=== PATIENT | female | born 1975 | race Caucasian/White ===

== ENCOUNTER 2019-02-05 21:48 | Emergency (ER) | payer SELFPAY ==
[2019-02-05] MEDS ORDERED: LORazepam 2 MG/ML VIAL ONE (23:14)
[2019-02-05] MEDS ORDERED: LABETALOL 20 MG/4ML SYRINGE IV ONE (23:15)
[2019-02-05] MEDS ORDERED: NA CHLORIDE 0.9% 1,000 ML ONE (23:15)
[2019-02-05 23:24] LABS: Absolute Lymphocytes (CBC) 2.1 K/uL (0.7-4.9); Basophils % 1.2 % (0-1.3); Eosinophils % 2.6 % (0-4.4); Hematocrit 32.5 % (36.0-45.0); Lymphocytes % 27.8 % (15.3-44.8); MPV 7.3 fL (7.6-11.3); Monocytes % 6.3 % (3.3-12.3); RBC Red Blood Cell Count 3.42 M/uL (3.86-4.86)
[2019-02-05 23:55] LABS: Potassium 2.9 mmol/L (3.5-5.1)
[2019-02-06] MEDS ORDERED: POTASSIUM 25 MEQ EFFERV TAB ONE (00:49)
--- NOTE | 2019-02-06 00:51 | ER ---
Nurse's Notes [facility] Name: Laura Hammond Age: 43 yrs Sex: Female : 1975 Arrival Date: 02/05/2019 Time: 21:49 Bed 7 Private MD: Diagnosis: Essential (primary) hypertension;Anxiety disorder, unspecified Presentation: 02/05 21:50 Presenting complaint: Patient states: Has been at [facility] for 7 days for alcohol tl2 withdrawal, states they have not been giving her xanax for her anxiety and her BP has been high. Woke up this morning with high BP and reports blurry vision. Transition of care: patient was received from another setting of care (rehabilitation facility). Onset of symptoms was February 05, 2019. Risk Assessment: Do you want to hurt yourself or someone else? Patient reports no desire to harm self or others. Initial Sepsis Screen: Does the patient meet any 2 criteria? No. Patient's initial sepsis screen is negative. Does the patient have a suspected source of infection? No. Patient's initial sepsis screen is negative. Care prior to arrival: Pt received 3 doses of hydroxyzine at [facility] today. 21:50 Method Of Arrival: EMS: [facility] tl2 21:50 Acuity: MARCELL 3 tl2 Triage Assessment: 21:53 General: Appears in no apparent distress. uncomfortable, Behavior is cooperative, tl2 appropriate for age, anxious. Pain: Denies pain. EENT: Reports blurred vision. Neuro: Level of Consciousness is awake, alert, obeys commands, Oriented to person, place, time, situation, Speech is normal, Facial symmetry appears normal, Reports blurred vision Denies dizziness, numbness. Cardiovascular: Denies chest pain. Respiratory: Reports shortness of breath Airway is patent Respiratory effort is even, unlabored, Respiratory pattern is regular, symmetrical. GI: Reports anorexia. Derm: Skin is pink, warm \T\ dry. 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 - Social history:: Smoking status: Patient uses tobacco products, smokes one-half pack cigarettes per day. - Ebola Screening: : No symptoms or risks identified at this time. Screenin:56 Abuse screen: Denies threats or abuse. Nutritional screening: No deficits noted. tl2 Tuberculosis screening: No symptoms or risk factors identified. Fall Risk None identified. Assessment: 21:59 General: see triage assessment. tl2 23:00 Reassessment: Patient appears in no apparent distress at this time. Patient and/or tl2 family updated on plan of care and expected duration. Pain level reassessed. Patient is alert, oriented x 3, equal unlabored respirations, skin warm/dry/pink. 02/06 00:40 Reassessment: Patient appears in no apparent distress at this time. Patient and/or tl2 family updated on plan of care and expected duration. Pain level reassessed. Patient is alert, oriented x 3, equal unlabored respirations, skin warm/dry/pink. Patient states feeling better. 01:12 Reassessment: Patient appears in no apparent distress at this time. Patient and/or tl2 family updated on plan of care and expected duration. Pain level reassessed. Patient is alert, oriented x 3, equal unlabored respirations, skin warm/dry/pink. pt verbalized understanding of discharge instructions, need for follow up and prescription usage. Called Client pick-up for [facility], they will call back for ETA on transport Patient states feeling better. Vital Signs: 02/05 21:53 BP 175 / 116; Pulse 82; Resp 20; Temp 99.2(O); Pulse Ox 98% on R/A; Weight 51.26 kg; tl2 Height 5 ft. 0 in. (152.40 cm); Pain 0/10; 22:50 BP 159 / 102; Pulse 80; Resp 18; Pulse Ox 97% on R/A; tl2 23:19 BP 148 / 88; Pulse 93; Resp 18; Pulse Ox 97% on R/A; tl2 23:55 BP 144 / 89; Pulse 87; Resp 18; Pulse Ox 97% on R/A; tl2 02/06 00:40 BP 145 / 88; Pulse 81; Resp 18; Pulse Ox 97% on R/A; tl2 02/05 21:53 Body Mass Index 22.07 (51.26 kg, 152.40 cm) tl2 ED Course: 02/05 21:49 Patient arrived in ED. tl2 21:52 Triage completed. tl2 21:53 Arm band placed on right wrist. tl2 21:56 Patient has correct armband on for positive identification. Placed in gown. Bed in low tl2 position. Call light in reach. Side rails up X2. 21:59 Brendan Wilder PA is PHCP. jr8 21:59 Sherif Box MD is Attending Physician. jr8 22:49 Alyson Bond RN is Primary Nurse. tl2 22:50 Inserted saline lock: 24 gauge in left hand, using aseptic technique. Blood collected. tl2 23:55 Notified Nurse Practitioner and/or Physician Automotive Electrician of a critical lab result(s), aa1 potassium - 2.9. 02/06 01:12 No provider procedures requiring assistance completed. IV discontinued, intact, tl2 bleeding controlled, No redness/swelling at site. Pressure dressing applied. Administered Medications: 02/05 23:08 Drug: NS 0.9% 1000 ml Route: IV; Rate: 1000 ml; Site: left hand; tl2 02/06 01:14 Follow up: IV Status: Completed infusion; IV Intake: 1000ml tl2 02/05 23:10 Drug: Ativan 1 mg Route: IVP; Site: left hand; tl2 23:57 Follow up: Response: No adverse reaction; Anxiety decreased tl2 23:10 Drug: Labetalol 10 mg Route: IVP; Site: left hand; tl2 23:56 Follow up: Response: No adverse reaction; Blood pressure is lowered tl2 02/06 00:39 CANCELLED (not available): Potassium Chloride 40 mEq PO once tl2 00:40 Drug: Potassium Effervescent Tablet 50 mEq Route: PO; tl2 01:14 Follow up: Response: No adverse reaction tl2 Intake: 01:14 IV: 1000ml; Total: 1000ml. tl2 Outcome: 00:49 Discharge ordered by . jr8 01:12 Discharged to Rehab Facility tl2 01:12 Condition: stable 01:12 Discharge instructions given to patient, Instructed on discharge instructions, follow up and referral plans. medication usage, Demonstrated understanding of instructions, follow-up care, medications, Prescriptions given X 1. 01:50 Patient left the ED. tl2 Signatures: Ebonie Suggs RN RN aa1 Brendan Wilder PA PA jr8 Alyson Bond RN RN tl2 Corrections: (The following items were deleted from the chart) 00:39 00:39 Potassium Chloride 40 mEq PO tl2 tl2
--- NOTE | 2019-02-06 00:51 | EDPHYS ---
Physician Documentation [facility] Name: Laura Hammond Age: 43 yrs Sex: Female : 1975 Arrival Date: 02/05/2019 Time: 21:49 Bed 7 Private MD: ED Physician Sherif Box HPI: 02/05 23:40 This 43 yrs old Female presents to ER via EMS with complaints of Blood jr8 Pressure Problem. 23:40 Patient stated that she has been a long standing alcoholic and was on Xanax 1 mg PO TID jr8 for over a month. Stated that she has been in rehab currently and just finished detoxifying off of alcohol. Stated that the placed stopped her Xanax when she first went in. Now having spikes in her BP and is very anxious and jittery . Severity of symptoms: At their worst the symptoms were moderate in the emergency department the symptoms are unchanged. The patient has not experienced similar symptoms in the past. The patient has not recently seen a physician. 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 - Social history:: Smoking status: Patient uses tobacco products, smokes one-half pack cigarettes per day. - Ebola Screening: : No symptoms or risks identified at this time. ROS: 23:40 Eyes: Negative for injury, pain, redness, and discharge, ENT: Negative for injury, jr8 pain, and discharge, Neck: Negative for injury, pain, and swelling, Cardiovascular: Negative for chest pain, palpitations, and edema, Respiratory: Negative for shortness of breath, cough, wheezing, and pleuritic chest pain, Abdomen/GI: Negative for abdominal pain, nausea, vomiting, diarrhea, and constipation, Back: Negative for injury and pain, MS/Extremity: Negative for injury and deformity, Skin: Negative for injury, rash, and discoloration. 23:40 Neuro: Positive for headache, Negative for altered mental status, dizziness, gait disturbance, hearing loss, loss of consciousness, numbness, seizure activity, speech changes, syncope, near syncope, tingling, tinnitus, tremor, visual changes, weakness. 23:40 Psych: Positive for anxiety. Exam: 23:40 Eyes: Pupils equal round and reactive to light, extra-ocular motions intact. Lids and jr8 lashes normal. Conjunctiva and sclera are non-icteric and not injected. Cornea within normal limits. Periorbital areas with no swelling, redness, or edema. ENT: Nares patent. No nasal discharge, no septal abnormalities noted. Tympanic membranes are normal and external auditory canals are clear. Oropharynx with no redness, swelling, or masses, exudates, or evidence of obstruction, uvula midline. Mucous membranes moist. Neck: Trachea midline, no thyromegaly or masses palpated, and no cervical lymphadenopathy. Supple, full range of motion without nuchal rigidity, or vertebral point tenderness. No Meningismus. Cardiovascular: Regular rate and rhythm with a normal S1 and S2. No gallops, murmurs, or rubs. Normal PMI, no JVD. No pulse deficits. Respiratory: Lungs have equal breath sounds bilaterally, clear to auscultation and percussion. No rales, rhonchi or wheezes noted. No increased work of breathing, no retractions or nasal flaring. Abdomen/GI: Soft, non-tender, with normal bowel sounds. No distension or tympany. No guarding or rebound. No evidence of tenderness throughout. Back: No spinal tenderness. No costovertebral tenderness. Full range of motion. Skin: Warm, dry with normal turgor. Normal color with no rashes, no lesions, and no evidence of cellulitis. MS/ Extremity: Pulses equal, no cyanosis. Neurovascular intact. Full, normal range of motion. Neuro: Awake and alert, GCS 15, oriented to person, place, time, and situation. Cranial nerves II-XII grossly intact. Motor strength 5/5 in all extremities. Sensory grossly intact. Cerebellar exam normal. Normal gait. 23:40 Constitutional: The patient appears alert, awake, anxious. Vital Signs: 21:53 BP 175 / 116; Pulse 82; Resp 20; Temp 99.2(O); Pulse Ox 98% on R/A; Weight 51.26 kg; tl2 Height 5 ft. 0 in. (152.40 cm); Pain 0/10; 22:50 BP 159 / 102; Pulse 80; Resp 18; Pulse Ox 97% on R/A; tl2 23:19 BP 148 / 88; Pulse 93; Resp 18; Pulse Ox 97% on R/A; tl2 23:55 BP 144 / 89; Pulse 87; Resp 18; Pulse Ox 97% on R/A; tl2 02/06 00:40 BP 145 / 88; Pulse 81; Resp 18; Pulse Ox 97% on R/A; 2 02/05 21:53 Body Mass Index 22.07 (51.26 kg, 152.40 cm) tl2 MDM: 02/05 21:59 Patient medically screened. jr8 02/06 00:48 Data reviewed: vital signs, nurses notes, lab test result(s), and as a result, I will jr8 discharge patient. Data interpreted: Pulse oximetry: on room air is 97 %. Interpretation: normal. Counseling: I had a detailed discussion with the patient and/or guardian regarding: the historical points, exam findings, and any diagnostic results supporting the discharge/admit diagnosis, lab results, the need for outpatient follow up, a family practitioner, to return to the emergency department if symptoms worsen or persist or if there are any questions or concerns that arise at home. Response to treatment: the patient's symptoms have markedly improved after treatment. 02/05 22:34 Order name: CBC with Diff; Complete Time: 23:39 8 02/05 22:34 Order name: Basic Metabolic Panel; Complete Time: 00:04 8 02/05 22:34 Order name: IV; Complete Time: 22:50 [facility] Administered Medications: 02/05 23:08 Drug: NS 0.9% 1000 ml Route: IV; Rate: 1000 ml; Site: left hand; tl2 02/06 01:14 Follow up: IV Status: Completed infusion; IV Intake: 1000ml 2 02/05 23:10 Drug: Ativan 1 mg Route: IVP; Site: left hand; tl2 23:57 Follow up: Response: No adverse reaction; Anxiety decreased tl2 23:10 Drug: Labetalol 10 mg Route: IVP; Site: left hand; tl2 23:56 Follow up: Response: No adverse reaction; Blood pressure is lowered 2 02/06 00:39 CANCELLED (not available): Potassium Chloride 40 mEq PO once tl2 00:40 Drug: Potassium Effervescent Tablet 50 mEq Route: PO; tl2 01:14 Follow up: Response: No adverse reaction tl2 Disposition: 01:44 Co-signature as Attending Physician, Sherif Box MD. Disposition: 02/06/19 00:49 Discharged to Home. Impression: Essential (primary) hypertension, Anxiety disorder, unspecified. - Condition is Stable. - Discharge Instructions: Panic Attacks, Hypertension, Generalized Anxiety Disorder. - Prescriptions for Lisinopril 10 mg Oral Tablet - take 1 tablet by ORAL route once daily; 20 tablet. - Medication Reconciliation Form, Thank You Letter, Antibiotic Education, Prescription Opioid Use form. - Follow up: Private Physician; When: 2 - 3 days; Reason: Recheck today's complaints, Continuance of care, Re-evaluation by your physician. - Problem is new. - Symptoms have improved. - Notes: Patient to increase Lisinopril to 10 mg once a day to help with stabilization of blood pressure Signatures: Dispatcher [employer] EDMS Brendan Wilder PA PA jr8 Alyson Bond RN RN 2 Sherif Box MD MD Corrections: (The following items were deleted from the chart) 00:39 02/05 23:55 Potassium Chloride Liquid 40 mEq PO once ordered. jr8 tl2 02/06 00:39 00:39 Potassium Chloride Liquid 40 mEq PO once given. tl2 tl2 00:39 00:39 Potassium Chloride Liquid 40 mEq PO once ordered. tl2 tl2 01:50 00:49 02/06/2019 00:49 Discharged to Home. Impression: Essential (primary) tl2 hypertension; Anxiety disorder, unspecified. Condition is Stable. Forms are Medication Reconciliation Form, Thank You Letter, Antibiotic Education, Prescription Opioid Use. Follow up: Private Physician; When: 2 - 3 days; Reason: Recheck today's complaints, Continuance of care, Re-evaluation by your physician. Problem is new. Symptoms have improved. jr8
== END 2019-02-06 01:50 | disposition home or self-care (01) ==
LOC: ER 21:48
DX: I10 Essential (primary) hypertension (principal); F41.9 Anxiety disorder, unspecified; F17.210 Nicotine dependence, cigarettes, uncomplicated
CPT/HCPCS: 36415; 80048; 85025; 96361; 96374; 96375; 99284; J7030

== ENCOUNTER 2019-02-18 22:10 | Emergency (ER) | payer SELFPAY ==
--- OUTSIDE RECORDS SUMMARY | 2019-02-18 22:26 | XMS REPORT | Continuity of Care Document ---
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 CDT, Stop date: 04/30/16 12:20:00 CDTNotes: (Same as: K-Dur 20) "Do Not Crush" With food and full glass of water potassium chloride 20 mEq, 1 No Longer tab, Route: Active 2015 [facility] PO, Drug form: ERTAB, ONCE, Dosing Weight 50, kg, Start date: 04/28/16 23:58:00 CDT, Stop date: 04/28/16 23:58:00 CDTNotes: (Same as: K-Dur 20) "Do Not Crush" With food and full glass of water potassium chloride 10 mEq, 100 Inactive mL, Route: 2015 [facility] IVPB, Drug form: INJ, Q1H, Dosing Weight 50, kg, Total Dose=60 meq, Start date: 04/28/16 6:00:00 CDT, Duration: 6 doses or times, Stop date: 04/28/16 11:00:00 CDT, Peripheral LineNotes: Infuse at a rate of 10 mEq/hr. (Same as: KCL) Calcium Gluconate 2,000 mg, 100 Inactive mL, Route: 2015 [facility] IVPB, Drug form: INJ, ONCE, Dosing Weight 50, kg, Priority: STAT, Start date: 04/28/16 5:47:00 CDT, Stop date: 04/28/16 5:47:00 CDTNotes: WASTE: F/P - Sink; E - [employer] Trash Bin potassium chloride 20 mEq, 1 No Longer tab, Route: Active 2015 [facility] PO, Drug form: ERTAB, PRN, Dosing Weight 50, kg, PRN Abnormal Lab Result, For NON-ICU Patients Only, Start date: 04/27/16 12:21:00 CDT, Duration: 30 day, Stop date: 05/27/16 12:20:00 CDTNotes: (Same as: K-Dur 20) "Do Not Crush" With food and full glass of water Magnesium Oxide 800 mg, 2 No Longer tab, Route: Active 2015 [facility] PO, Drug form: TAB, PRN, Dosing Weight 50, kg, PRN Abnormal Lab Result, For NON-ICU Patients Only., Start date: 04/27/16 12:21:00 CDT, Duration: 30 day, Stop date: 05/27/16 12:20:00 CDTNotes: (Same as: Mag-Ox 400) Magnesium oxide [id number] elemental magnesium [id number] magnesium oxide (484mg elemental magnesium) Magnesium Sulfate 2 gm, 50 mL, No Longer Route: IVPB, Active 2015 [facility] Drug form: INJ, PRN, Dosing Weight 50, kg, PRN Abnormal Lab Result, For NON-ICU Patients Only., Start date: 04/27/16 12:21:00 CDT, Duration: 30 day, Stop date: 05/27/16 12:20:00 CDTNotes: WASTE: F/P - Sink; E - [employer] Trash Bin sodium phosphate + 15 mmol, 5 No Longer sodium chloride mL, Route: Active 2015 [facility] 0.9% INJ 250 mL IVPB, PRN, Dosing Weight 50, kg, PRN Abnormal Lab Result, For NON-ICU Patients Only., Start date: 04/27/16 12:21:00 CDT, Duration: 30 day, Stop date: 05/27/16 12:20:00 CDT Calcium Gluconate 2 gm, 100 mL, No Longer Route: IVPB, Active 2015 [facility] Drug form: INJ, PRN, Dosing Weight 50, kg, PRN Abnormal Lab Result, For NON-ICU Patients Only., Start date: 04/27/16 12:21:00 CDT, Duration: 30 day, Stop date: 05/27/16 12:20:00 CDTNotes: WASTE: F/P - Sink; E - [employer] Trash Bin potassium 15 mmol, 5 No Longer phosphate + sodium mL, Route: Active 2015 [facility] chloride 0.9% INJ IVPB, PRN, 250 mL Dosing Weight 50, kg, PRN Abnormal Lab Result, For NON-ICU Patients Only., Start date: 04/27/16 12:21:00 CDT, Duration: 30 day, Stop date: 05/27/16 12:20:00 CDTNotes: (Same as: K Phosphate.) 1 mMol phoshate has 1.47 mEq potassium Infuse over 4 hours potassium 2 pkt, Route: No Longer phosphate-sodium PO, Drug Active 2015 [facility] phosphate 250 Form: mg-278 mg-164 mg PDR/REC, oral powder Dosing Weight 50, kg, PRN, PRN Abnormal Lab Result, For NON-ICU Patients Only, Start date: 04/27/16 12:21:00 CDT, Duration: 30 day, Stop date: 05/27/16 12:20:00 CDTNotes: (Same as: Neutra-Phos) Each 1.25 gm pkt has 250mg phosphorous. Mix w/2.5oz water and stir. potassium chloride 10 mEq, 100 Inactive mL, Route: 2015 [facility] IVPB, Drug form: INJ, Q1H, Dosing Weight 50, kg, Total Dose=40 meq, Start date: 04/27/16 7:00:00 CDT, Duration: 4 doses or times, Stop date: 04/27/16 10:00:00 CDT, Peripheral LineNotes: Infuse at a rate of 10 mEq/hr. (Same as: KCL) potassium 14 mmol, 4.67 Inactive phosphate + sodium mL, Route: 2015 [facility] chloride 0.9% INJ IVPB, ONCE, 250 mL Dosing Weight 50, kg, Start date: 04/27/16 6:33:00 CDT, Stop date: 04/27/16 6:33:00 CDTNotes: (Same as: K Phosphate.) 1 mMol phoshate has 1.47 mEq potassium Infuse over 4 hours Sertraline 50 mg, 1 tab, No Longer Route: PO, Active 2015 [facility] Drug form: TAB, Bedtime, kg, Start date: 04/26/16 21:00:00 CDT, Duration: 30 day, Stop date: 05/25/16 21:00:00 CDTNotes: (Same as: Zoloft) Ativan 0.5 mg, 1 Inactive tab, Route: 2015 [facility] PO, Drug form: TAB, ONCE, Dosing Weight 50, kg, PRN Anxiety, Start date: 04/26/16 20:24:00 CDTNotes: (Same as: Ativan) Nicotine 21 mg, 1 No Longer patch, Route: Active 2015 [facility], Drug form: ERFILM, Daily, Dosing Weight 50, kg, Start date: 04/26/16 15:00:00 CDT, Duration: 30 day, Stop date: 05/26/16 9:00:00 CDTNotes: (Same as: Habitrol) "Remove old patch before application of new patch" WASTE: F/P - P Waste Black; E - P Waste Black potassium chloride 10 mEq, 100 Inactive mL, Route: 2015 [facility] IVPB, Drug form: INJ, Q1H, Start date: 04/26/16 15:00:00 CDT, Duration: 2 doses or times, Stop date: 04/26/16 16:00:00 CDTNotes: Infuse at a rate of 10 mEq/hr. (Same as: KCL) magnesium sulfate 1 gm, 100 mL, Inactive Route: IVPB, 2015 [facility] Drug form: INJ, Q1H, Start date: 04/26/16 15:00:00 CDT, Duration: 3 doses or times, Stop date: 04/26/16 17:00:00 CDTNotes: WASTE: F/P - Sink; E - [employer] Trash Bin Magnesium Sulfate 3 gm, Route: Inactive IVPB, Drug 2015 [facility] form: INJ, ONCE, Dosing Weight 50, kg, Start date: 04/26/16 14:15:00 CDT, Stop date: 04/26/16 14:15:00 CDT potassium 30 mmol, 10 Inactive phosphate + sodium mL, Route: 2015 [facility] chloride 0.9% INJ IVPB, ONCE, 250 mL Dosing Weight 50, kg, Start date: 04/26/16 14:14:00 CDT, Stop date: 04/26/16 14:14:00 CDTNotes: (Same as: K Phosphate.) 1 mMol phoshate has 1.47 mEq potassium Infuse over 4 hours potassium chloride 20 mEq, Inactive Route: IVPB, 2015 [facility] ONCE, Dosing Weight 50, kg, Start date: 04/26/16 14:11:00 CDT, Stop date: 04/26/16 14:11:00 CDT Chlordiazepoxide 25 mg, 1 cap, No Longer Hydrochloride 25 Route: PO, Active 2015 [facility] Drug form: CAP, Q6H, kg, Alcohol Withdrawal, Start date: 04/26/16 12:00:00 CDT, Duration: 30 day, Stop date: 05/26/16 6:00:00 CDT potassium chloride 10 mEq, 100 Inactive mL, Route: 2015 [facility] IVPB, Drug form: INJ, Q1H, kg, Total Dose=20 meq, Start date: 04/26/16 11:00:00 CDT, Duration: 2 doses or times, Stop date: 04/26/16 12:00:00 CDT, Peripheral LineNotes: Infuse at a rate of 10 mEq/hr. (Same as: KCL) Amlodipine 10 mg, 2 tab, No Longer Route: PO, Active 2015 [facility] Drug form: TAB, Daily, kg, Start date: 04/26/16 10:30:00 CDT, Duration: 30 day, Stop date: 05/26/16 9:00:00 CDTNotes: (Same as: Norvasc) Buspirone 7.5 mg, 1.5 No Longer tab, Route: Active 2015 [facility] PO, Drug form: TAB, BID, kg, Start date: 04/26/16 10:30:00 CDT, Duration: 30 day, Stop date: 05/26/16 9:00:00 CDTNotes: (Same As: BuSpar) Zofran 4 mg, 2 mL, No Longer Route: IVP, Active 2015 [facility] Drug form: INJ, Q4H, kg, PRN Nausea, Start date: 04/26/16 10:15:00 CDT, Duration: 30 day, Stop date: 05/26/16 10:14:00 CDTNotes: (Same as: Zofran) MEDICATION WASTE Product Size: 4 mg Product Wasted: ___ mg Ativan 1 mg, 0.5 mL, Inactive Route: IVP, 2015 [facility] Drug form: INJ, ONCE, kg, PRN Anxiety, Start date: 04/26/16 10:14:00 CDTNotes: (Same as: Ativan) D5NS 1,000 mL + 1,000 mL, No Longer thiamine IV 100 mg Rate: 100 Active 2015 [facility] + folic acid IV 1 ml/hr, Infuse mg over: 10 hr, Route: IV, Total Volume: 1,001.2, Start date: 04/26/16 10:12:00 CDT, Duration: 30 day, Stop date: 05/26/16 10:11:00 CDT potassium chloride 10 mEq, PO, Active Daily, 0 2015 [facility] Refill(s) busPIRone 7.5 mg 7.5 mg=1 tab, Active oral tablet PO, BID, 0 2015 [facility] Refill(s) Amlodipine 10 mg, PO, Active Daily, 0 2015 [facility] Refill(s) ondansetron 8 mg 8 mg=1 tab, Active oral tablet PO, BID, 0 2015 [facility] Refill(s) sertraline 50 mg 50 mg=1 tab, Active oral tablet PO, Bedtime, 2015 0 Refill(s) Allergies, Adverse Reactions, Alerts Substance Category Reaction Severity Reaction Status Date Comments Source type Reported Demerol HCl Assertion Moderate Drug Active allergy [facility] Immunizations No Data Provided for This Section Results Order Name Results Value Reference Date Interpretation Comments Source Range TOXICOLOGY Etoh (%) 0.079 12/15 [facility] TOXICOLOGY Ethanol Lvl 79 12/15 [facility] CARDIAC Total CK 140 12 - 191 12/15 ENZYMES [facility] CARDIAC Troponin-I <0.02 0.00 - 12/15 [facility] 0.40 [facility] CHEM PANEL Lipase Lvl 115 73 - 393 12/15 [facility] CHEM PANEL eGFR 59 12/15 Result Comment: The [facility] eGFR is calculated using the CKD-EPI formula. In most young, healthy individuals the eGFR will be >90 mL/min/1.73m2 . The eGFR declines with age. An eGFR of 60-89 may be normal in some populations, particularly the elderly, for whom the CKD-EPI formula has not been extensively validated. Use of the eGFR is not recommended in the following populations:< br/>
Sarah viduals with unstable creatinine concentration s, including patients and those with serious co-morbid conditions.<b r/>
Patie nts with extremes in muscle mass or diet.

The data above are obtained from the National Kidney Disease Education Program (NKDEP) which additionally recommends that when the eGFR is used in patients with extremes of body mass index for purposes of drug dosing, the eGFR should be multiplied by the estimated BMI. CHEM PANEL Alk Phos 68 39 - 136 12/15 [facility] CHEM PANEL AST 30 0 - 37 12/15 [facility] CHEM PANEL ALT 31 0 - 65 12/15 [facility] CHEM PANEL Albumin Lvl 3.6 3.5 - 5.0 12/15 [facility] CHEM PANEL Bili Total 0.5 0.2 - 1.3 12/15 [facility] CHEM PANEL CO2 26 24 - 32 12/15 [facility] CHEM PANEL Calcium Lvl 7.9 8.5 - 10.5 12/15 [facility] CHEM PANEL Total 7.1 6.4 - 8.4 12/15 Protein [facility] CHEM PANEL Potassium 3.7 3.5 - 5.1 12/15 Lvl /2018 [facility] CHEM PANEL Sodium Lvl 139 135 - 145 12/15 [facility] CHEM PANEL Creatinine 1.12 0.50 - 12/15 Lvl 1.40 [facility] CHEM PANEL Chloride Lvl 106 95 - 109 12/15 [facility] CHEM PANEL BUN 14 7 - 22 12/15 [facility] CHEM PANEL Glucose Lvl 115 70 - 99 12/15 [facility] CHEM PANEL A/G Ratio 1.0 0.7 - 1.6 12/15 [facility] CHEM PANEL Globulin 3.5 2.7 - 4.2 12/15 [facility] CHEM PANEL B/C Ratio 12 6 - 25 12/15 [facility] CHEM PANEL AGAP 10.7 10.0 - 12/15 20.0 [facility] ENDOCRINOL S Preg Negative Negative 12/15 OGY *NA* /2018 [facility] (12/15/18 3:03 PM) HEMATOLOGY Platelet 306 133 - 450 12/15 [facility] HEMATOLOGY MPV 8.1 7.4 - 10.4 12/15 [facility] HEMATOLOGY RDW 17.5 11.5 - 12/15 MH 14.5 /2018 [facility] HEMATOLOGY WBC 10.8 3.7 - 10.4 12/15 /2018 [facility] HEMATOLOGY RBC 4.74 4.20 - 12/15 MH 5.40 /2018 [facility] HEMATOLOGY MCV 93.6 80.0 - 12/15 MH 98.0 /2018 [facility] HEMATOLOGY MCH 31.1 27.0 - 12/15 MH 31.0 /2018 [facility] HEMATOLOGY Hgb 14.8 12.0 - 12/15 MH 16.0 [facility] HEMATOLOGY Hct 44.4 36.0 - 12/15 MH 48.0 /2018 [facility] HEMATOLOGY MCHC 33.3 32.0 - 12/15 MH 36.0 /2018 [facility] HEMATOLOGY Monocytes 6.3 2.0 - 12.0 12/15 [facility] HEMATOLOGY Eosinophils 0.8 0.0 - 4.0 12/15 [facility] HEMATOLOGY Lymphocytes 36.7 20.0 - 12/15 MH 40.0 [facility] HEMATOLOGY Segs 54.9 45.0 - 12/15 MH 75.0 [facility] HEMATOLOGY Basophils # 0.1 0.0 - 0.2 12/15 [facility] HEMATOLOGY Eosinophils 0.1 0.0 - 0.5 12/15 # /2018 [facility] HEMATOLOGY Monocytes # 0.7 0.0 - 0.8 12/15 [facility] HEMATOLOGY Lymphocytes 4.0 1.0 - 5.5 12/15 [facility] HEMATOLOGY Basophils 1.3 0.0 - 1.0 12/15 [facility] HEMATOLOGY Neutrophils 5.9 1.5 - 8.1 12/15 # /2018 [facility] URINE AND UA Mucus Few /LPF None Seen 11/18 STOOL /LPF /2018 [facility] URINE AND UA Bacteria Occasional None Seen 11/18 STOOL /HPF /HPF /2018 [facility] URINE AND UA RBC 1 0 - 2 11/18 STOOL /2018 [facility] URINE AND UA Protein Negative Negative 11/18 [facility] (11/18/18 7:08 AM) [facility] URINE AND UA Glucose Negative Negative 11/18 STOOL *NA* [facility] (11/18/18 7:08 AM) URINE AND UA Ketones Negative Negative 11/18 STOOL *NA* [facility] (11/18/18 7:08 AM) URINE AND UA Color Yellow Yellow 11/18 STOOL *NA* [facility] (11/18/18 7:08 AM) URINE AND UA Bili Negative Negative 11/18 STOOL *NA* /2018 [facility] (11/18/18 7:08 AM) URINE AND UA Blood Small Negative 11/18 STOOL *ABN* [facility] (11/18/18 7:08 AM) URINE AND UA <=1.0 0.1 - 1.0 11/18 STOOL Urobilinogen mg/dL [facility] URINE AND UA Turbidity Slight Clear 11/18 STOOL *ABN* [facility] (11/18/18 7:08 AM) URINE AND UA pH 7.0 5.0 - 8.0 11/18 [facility] URINE AND UA Nitrite Negative Negative 11/18 [facility] (11/18/18 7:08 AM) [facility] URINE AND UA Leuk Est Negative Negative 11/18 [facility] (11/18/18 7:08 AM) [facility] URINE AND UA Sq Epi Many /LPF Few /LPF 11/18 [facility] URINE AND UA Spec Grav 1.015 <=1.030 11/18 STOOL [facility] URINE AND UA WBC 2 0 - 5 11/18 [facility] CHEM PANEL Lipase Lvl 107 73 - 393 11/18 [facility] CHEM PANEL Globulin 3.2 2.7 - 4.2 11/18 [facility] CHEM PANEL A/G Ratio 1.2 0.7 - 1.6 11/18 [facility] CHEM PANEL AGAP 12.8 10.0 - 11/18 MH 20.0 [facility] CHEM PANEL B/C Ratio 10 6 - 25 11/18 [facility] CHEM PANEL eGFR 67 11/[address] [facility] Comment: The [facility] eGFR is calculated using the CKD-EPI formula. In most young, healthy individuals the eGFR will be >90 mL/min/1.73m2 . The eGFR declines with age. An eGFR of 60-89 may be normal in some populations, particularly the elderly, for whom the CKD-EPI formula has not been extensively validated. Use of the eGFR is not recommended in the following populations:< br/>
Sarah viduals with unstable creatinine concentration s, including patients and those with serious co-morbid conditions.<b r/>
Patie nts with extremes in muscle mass or diet.

The data above are obtained from the National Kidney Disease Education Program (NKDEP) which additionally recommends that when the eGFR is used in patients with extremes of body mass index for purposes of drug dosing, the eGFR should be multiplied by the estimated BMI. CHEM PANEL Glucose Lvl 99 70 - 99 11/18 [facility] CHEM PANEL BUN 10 7 - 22 11/18 [facility] CHEM PANEL Bili Total 0.4 0.2 - 1.3 11/18 [facility] CHEM PANEL AST 60 0 - 37 11/18 [facility] CHEM PANEL Alk Phos 64 39 - 136 11/18 [facility] CHEM PANEL ALT 44 0 - 65 11/18 [facility] CHEM PANEL Sodium Lvl 138 135 - 145 11/18 [facility] CHEM PANEL Albumin Lvl 3.9 3.5 - 5.0 11/18 [facility] CHEM PANEL Creatinine 1.01 0.50 - 11/18 MH Lvl 1.40 [facility] CHEM PANEL Calcium Lvl 7.9 8.5 - 10.5 11/18 [facility] CHEM PANEL Total 7.1 6.4 - 8.4 11/18 [facility] CHEM PANEL Potassium 3.8 3.5 - 5.1 11/18 MH Lvl /2018 [facility] CHEM PANEL Chloride Lvl 101 95 - 109 11/18 [facility] CHEM PANEL CO2 28 24 - 32 11/18 [facility] ENDOCRINOL S Preg Negative Negative 11/18 OGY *NA* /2018 [facility] (11/18/18 4:31 AM) HEMATOLOGY RDW 15.9 11.5 - 11/18 MH 14. [facility] HEMATOLOGY Platelet 340 133 - 450 11/18 [facility] HEMATOLOGY MCHC 34.2 32.0 - 11/18 MH 36.0 [facility] HEMATOLOGY MCH 31.6 27.0 - 11/18 MH 31.0 [facility] HEMATOLOGY Hgb 13.7 12.0 - 11/18 MH 16.0 [facility] HEMATOLOGY Hct 40.1 36.0 - 11/18 MH 48.0 [facility] HEMATOLOGY MCV 92.5 80.0 - 11/18 MH 98.0 [facility] HEMATOLOGY MPV 7.0 7.4 - 10.4 11/18 [facility] HEMATOLOGY RBC 4.34 4.20 - 11/18 MH 5.40 [facility] HEMATOLOGY WBC 10.0 3.7 - 10.4 11/18 [facility] HEMATOLOGY Monocytes # 0.3 0.0 - 0.8 11/18 [facility] HEMATOLOGY Monocytes 3.2 2.0 - 12.0 11/18 [facility] HEMATOLOGY Basophils 0.4 0.0 - 1.0 11/18 [facility] HEMATOLOGY Eosinophils 2.1 0.0 - 4.0 11/18 [facility] HEMATOLOGY Lymphocytes 1.9 1.0 - 5.5 11/18 MH [facility] HEMATOLOGY Neutrophils 7.6 1.5 - 8.1 11/18 MH [facility] HEMATOLOGY Segs 75.6 45.0 - 11/18 MH 75.0 [facility] HEMATOLOGY Lymphocytes 18.7 20.0 - 11/18 MH 40.0 [facility] HEMATOLOGY Eosinophils 0.2 0.0 - 0.5 11/18 MH [facility] CHEM PANEL Glucose Lvl 84 70 - 99 09/25 [facility] CHEM PANEL BUN 19 7 - 22 09/25 [facility] CHEM PANEL Sodium Lvl 140 135 - 145 09/25 [facility] CHEM PANEL Potassium 2.6 3.5 - 5.1 09/25 Result Lv Comment: [facility] Critical Result(s) called to Andra Mascorro RN at 09/25/2018 06:32 by Maddy. Read back OK. CHEM PANEL Creatinine 1.26 0.50 - 02 Lvl 1.40 /2018 [facility] CHEM PANEL Chloride Lvl 103 95 - 109 09/25 [facility] CHEM PANEL CO2 27 24 - 32 09/25 [facility] CHEM PANEL eGFR 52 02 Result Comment: The [facility] eGFR is calculated using the CKD-EPI formula. In most young, healthy individuals the eGFR will be >90 mL/min/1.73m2 . The eGFR declines with age. An eGFR of 60-89 may be normal in some populations, particularly the elderly, for whom the CKD-EPI formula has not been extensively validated. Use of the eGFR is not recommended in the following populations:< br/>
Sarah viduals with unstable creatinine concentration s, including patients and those with serious co-morbid conditions.<b r/>
Patie nts with extremes in muscle mass or diet.

The data above are obtained from the National Kidney Disease Education Program (NKDEP) which additionally recommends that when the eGFR is used in patients with extremes of body mass index for purposes of drug dosing, the eGFR should be multiplied by the estimated BMI. CHEM PANEL AGAP 12.6 10.0 - 02/ MH 20.0 /2018 [facility] CHEM PANEL Calcium Lvl 8.6 8.5 - 10.5 02/ /2018 [facility] CHEM PANEL Magnesium 1.9 1.8 - 2.4 02/04 MH Lvl /2018 [facility] ENDOCRINOL S Preg Negative Negative 09/25 OGY *NA* /2018 [facility] (09/25/18 5:31 AM) HEMATOLOGY Hgb 12.5 12.0 - 02/ MH 16.0 /2018 [facility] HEMATOLOGY RBC 3.93 4.20 - 02/ MH 5.40 /2018 [facility] HEMATOLOGY WBC 11.1 3.7 - 10.4 09/25 /2018 [facility] HEMATOLOGY MCHC 33.9 32.0 - 02/ 36.0 /2018 [facility] HEMATOLOGY MCH 31.7 27.0 - 02/ 31.0 /2018 [facility] HEMATOLOGY MCV 93.7 80.0 - 02/ 98.0 /2018 [facility] HEMATOLOGY Hct 36.8 36.0 - 02/ MH 48.0 /2018 [facility] HEMATOLOGY RDW 15.3 11.5 - 02/ 14.5 /2018 [facility] HEMATOLOGY Platelet 295 133 - 450 02/ /2018 [facility] HEMATOLOGY MPV 7.9 7.4 - 10.4 02/ /2018 [facility] HEMATOLOGY Neutrophils 8.1 1.5 - 8.1 02/ MH # /2019 [facility] HEMATOLOGY Lymphocytes 2.2 1.0 - 5.5 02/ MH # /2019 [facility] HEMATOLOGY Basophils # 0.1 0.0 - 0.2 02/ MH /2018 [facility] HEMATOLOGY Eosinophils 0.4 0.0 - 0.5 02/04 MH # /2019 [facility] HEMATOLOGY Monocytes # 0.3 0.0 - 0.8 02/ /2018 [facility] HEMATOLOGY Lymphocytes 19.6 20.0 - 02/ MH 40.0 /2018 [facility] HEMATOLOGY Segs 73.1 45.0 - 02/04 MH 75.0 /2019 [facility] HEMATOLOGY Monocytes 3.0 2.0 - 12.0 02/04 /2018 [facility] HEMATOLOGY Basophils 0.9 0.0 - 1.0 02/04 /2019 [facility] HEMATOLOGY Eosinophils 3.4 0.0 - 4.0 09/25 [facility] TOXICOLOGY Ethanol Lvl <3 05/03 [facility] TOXICOLOGY Etoh (%) <0.003 05/03 [facility] CARDIAC BNP 54 <=100 05/03 ENZYMES pg/mL [facility] CHEM PANEL Ammonia 18.0 <=45.0 05/03 uMol/L [facility] CHEM PANEL Lipase Lvl 121 73 - 393 05/03 [facility] CHEM PANEL Lactic Acid 1.2 0.5 - 2.2 05/03 Lvl [facility] CHEM PANEL eGFR 88 05/03 Comment: The [facility] eGFR is calculated using the CKD-EPI formula. In most young, healthy individuals the eGFR will be >90 mL/min/1.73m2 . The eGFR declines with age. An eGFR of 60-89 may be normal in some populations, particularly the elderly, for whom the CKD-EPI formula has not been extensively validated. Use of the eGFR is not recommended in the following populations:< br/>
Sarah viduals with unstable creatinine concentration s, including patients and those with serious co-morbid conditions.<b r/>
Patie nts with extremes in muscle mass or diet.

The data above are obtained from the National Kidney Disease Education Program (NKDEP) which additionally recommends that when the eGFR is used in patients with extremes of body mass index for purposes of drug dosing, the eGFR should be multiplied by the estimated BMI. CHEM PANEL ALT 19 0 - 65 05/03 [facility] CHEM PANEL Albumin Lvl 3.5 3.5 - 5.0 05/03 [facility] CHEM PANEL Calcium Lvl 9.3 8.5 - 10.5 05/03 [facility] CHEM PANEL Chloride Lvl 107 95 - 109 05/03 [facility] CHEM PANEL CO2 27 24 - 32 05/03 [facility] CHEM PANEL Total 7.0 6.4 - 8.4 05/03 [facility] CHEM PANEL Bili Total 0.3 0.2 - 1.3 05/03 [facility] CHEM PANEL AST 27 0 - 37 05/03 [facility] CHEM PANEL Alk Phos 70 39 - 136 05/03 [facility] CHEM PANEL Creatinine 0.82 0.50 - 05/03 MH Lvl 1.40 /2016 [facility] CHEM PANEL Sodium Lvl 142 135 - 145 05/03 [facility] CHEM PANEL Potassium 3.6 3.5 - 5.1 05/03 MH Lvl /2016 [facility] CHEM PANEL BUN 10 7 - 22 05/03 [facility] CHEM PANEL Glucose Lvl 89 70 - 99 05/03 [facility] CHEM PANEL Globulin 3.5 2.7 - 4.2 05/03 [facility] CHEM PANEL AGAP 11.6 10.0 - 09 MH 20.0 /2016 [facility] CHEM PANEL B/C Ratio 12 6 - 25 05/03 [facility] CHEM PANEL A/G Ratio 1.0 0.7 - 1.6 05/03 [facility] DRUG UDS Note See Note 05/03 MH SCREEN (05/03/17 12:34 PM) /2016 [facility] DRUG U Annel Scr Negative Negative 05/03 SCREEN *NA* [facility] (05/03/17 12:34 PM) DRUG U Benzodia Positive Negative 05/03 SCREEN Scr *ABN* /2016 [facility] (05/03/17 12:34 PM) DRUG U Phencyc Negative Negative 05/03 SCREEN Scr *NA* /2016 [facility] (05/03/17 12:34 PM) DRUG U Opiate Scr Negative Negative 05/03 SCREEN *NA* [facility] (05/03/17 12:34 PM) DRUG U Cannab Scr Negative Negative 05/03 SCREEN *NA* /2016 [facility] (05/03/17 12:34 PM) DRUG U Cocaine Negative Negative 05/03 SCREEN Scr *NA* /2016 [facility] (05/03/17 12:34 PM) DRUG U Amph Scr Negative Negative 05/03 SCREEN *NA* /2016 [facility] (05/03/17 12:34 PM) HEMATOLOGY Monocytes # 0.6 0.0 - 0.8 05/03 [facility] HEMATOLOGY Macrocyte 1+ None Seen 05/03 MH *ABN* /2016 [facility] (05/03/17 12:34 PM) HEMATOLOGY Eosinophils 0.7 0.0 - 0.5 05/03 MH # /2016 [facility] HEMATOLOGY Basophils # 0.1 0.0 - 0.2 05/03 /2016 [facility] HEMATOLOGY Lymphocytes 1.9 1.0 - 5.5 09/12 MH # /2017 [facility] HEMATOLOGY Eosinophils 8.6 0.0 - 4.0 05/03 /2016 [facility] HEMATOLOGY Segs 60.5 45.0 - 05/03 MH 75.0 /2016 [facility] HEMATOLOGY Basophils 1.0 0.0 - 1.0 05/03 /2016 [facility] HEMATOLOGY Segs-Bands # 5.0 1.5 - 8.1 05/03 /2016 [facility] HEMATOLOGY Monocytes 7.1 2.0 - 12.0 05/03 /2016 [facility] HEMATOLOGY Lymphocytes 22.8 20.0 - 05/03 MH 40.0 /2016 [facility] HEMATOLOGY PTT 30.8 22.9 - 05/03 MH 35.8 /2016 [facility] HEMATOLOGY INR 0.94 0.85 - 05/03 MH 1.17 /2016 [facility] HEMATOLOGY PT 12.8 12.0 - 05/03 MH 14.7 /2016 [facility] HEMATOLOGY MPV 8.6 7.4 - 10.4 05/03 /2016 [facility] HEMATOLOGY RDW 17.1 11.5 - 05/03 MH 14.5 /2016 [facility] HEMATOLOGY Platelet 197 133 - 450 05/03 /2016 [facility] HEMATOLOGY Hct 42.3 36.0 - 05/03 MH 48.0 /2016 [facility] HEMATOLOGY Hgb 14.4 12.0 - 05/03 MH 16.0 /2016 [facility] HEMATOLOGY WBC 8.3 3.7 - 10.4 05/03 /2016 [facility] HEMATOLOGY MCH 34.4 27.0 - 05/03 MH 31.0 /2016 [facility] HEMATOLOGY MCHC 34.1 32.0 - 05/03 MH 36.0 /2016 [facility] HEMATOLOGY MCV 100.8 80.0 - 05/03 98.0 /2016 [facility] HEMATOLOGY RBC 4.20 4.20 - 05/03 5.40 /2016 [facility] URINE AND UA <=1.0 0.1 - 1.0 05/03 STOOL Urobilinogen mg/dL /2016 [facility] URINE AND UA Amorph Occasional None Seen 05/03 STOOL [place] /HPF /HPF /2016 [facility] URINE AND UA Color Yellow Yellow 05/03 STOOL *NA* /2016 [facility] (05/03/17 12:34 PM) URINE AND UA Turbidity Slight Clear 05/03 STOOL *ABN* /2016 [facility] (05/03/17 12:34 PM) URINE AND UA Ketones Negative Negative 05/03 STOOL mg/dL mg/dL /2016 [facility] URINE AND UA Bili Negative Negative 05/03 STOOL *NA* /2016 [facility] (05/03/17 12:34 PM) URINE AND UA Sq Epi Many /LPF Few /LPF 05/03 STOOL /2016 [facility] URINE AND UA Leuk Est Small Negative 05/03 STOOL *ABN* /2016 [facility] (05/03/17 12:34 PM) URINE AND UA Glucose Negative Negative 05/03 STOOL mg/dL mg/dL [facility] URINE AND UA Protein Negative Negative 05/03 STOOL mg/dL mg/dL [facility] URINE AND UA Spec Grav 1.015 <=1.030 05/03 STOOL [facility] URINE AND UA pH 6.0 5.0 - 8.0 05/03 STOOL [facility] URINE AND UA Mucus Few /LPF None Seen 05/03 STOOL /LPF /2016 [facility] URINE AND UA Bacteria Moderate None Seen 05/03 STOOL /HPF /HPF /2016 [facility] URINE AND UA Nitrite Negative Negative 05/03 STOOL (05/03/17 12:34 PM) /2016 [facility] URINE AND UA Blood Large Negative 05/03 STOOL *ABN* /2016 [facility] (05/03/17 12:34 PM) URINE AND UA RBC 4 0 - 2 05/03 STOOL /2016 [facility] URINE AND UA WBC 10 0 - 5 05/03 STOOL /2016 [facility] BLOOD BANK ABO/Rh O POS 02/15 RESULTS /2016 [facility] BLOOD BANK Antibody Negative 02/15 RESULTS Scrn (02/15/17 12:32 PM) [facility] BLOOD BANK RBC product Product available 1 02/15 Result RESULTS (02/15/17 11:10 AM) Comment: [facility] 02/15/2017 13:38 [id number]
Called result to KEITH at 02/15/2017 13:38 by MML. Read Back Ok. CHEM PANEL Magnesium 1.5 1.8 - 2.4 02/15 Lvl /2016 [facility] CHEM PANEL eGFR 115 02/15 Result Comment: The [facility] eGFR is calculated using the CKD-EPI formula. In most young, healthy individuals the eGFR will be >90 mL/min/1.73m2 . The eGFR declines with age. An eGFR of 60-89 may be normal in some populations, particularly the elderly, for whom the CKD-EPI formula has not been extensively validated. Use of the eGFR is not recommended in the following populations:< br/>
Sarah viduals with unstable creatinine concentration s, including patients and those with serious co-morbid conditions.<b r/>
Patie nts with extremes in muscle mass or diet.

The data above are obtained from the National Kidney Disease Education Program (NKDEP) which additionally recommends that when the eGFR is used in patients with extremes of body mass index for purposes of drug dosing, the eGFR should be multiplied by the estimated BMI. CHEM PANEL Bili Total 13.4 0.2 - 1.3 02/15 [facility] CHEM PANEL Alk Phos 301 39 - 136 02/15 [facility] CHEM PANEL Calcium Lvl 7.8 8.5 - 10.5 02/15 [facility] CHEM PANEL Total 4.8 6.4 - 8.4 02/15 Protein [facility] CHEM PANEL AGAP 12.9 10.0 - 02/15 MH 20.0 [facility] CHEM PANEL CO2 24 24 - 32 02/15 [facility] CHEM PANEL B/C Ratio 5 6 - 25 02/15 [facility] CHEM PANEL Albumin Lvl 1.9 3.5 - 5.0 02/15 [facility] CHEM PANEL ALT 90 0 - 65 02/15 [facility] CHEM PANEL A/G Ratio 0.7 0.7 - 1.6 02/15 [facility] CHEM PANEL Globulin 2.9 2.7 - 4.2 02/15 [facility] CHEM PANEL AST 163 0 - 37 02/15 [facility] CHEM PANEL Potassium 2.9 3.5 - 5.1 02/15 Result Lvl /2016 Comment: [facility] Critical Result(s) called to Janett Valverde RN at 02/15/2017 05:51 by RA. Read back OK. CHEM PANEL Chloride Lvl 108 95 - 109 02/15 [facility] CHEM PANEL Glucose Lvl 96 70 - 99 02/15 [facility] CHEM PANEL Sodium Lvl 142 135 - 145 02/15 [facility] CHEM PANEL Creatinine 0.55 0.50 - 02/15 Lvl 1.40 /2016 [facility] CHEM PANEL BUN 3 7 - 22 02/15 [facility] HEMATOLOGY Macrocyte 2+ None Seen 02/15 MH *ABN* /2016 [facility] (02/15/17 4:19 AM) HEMATOLOGY Hypochrom 1+ None Seen 02/15 (02/15/17 4:19 AM) [facility] HEMATOLOGY Polychrom Moderate None Seen 02/15 *ABN* [facility] (02/15/17 4:19 AM) HEMATOLOGY Microcyte 1+ None Seen 02/15 MH *ABN* [facility] (02/15/17 4:19 AM) HEMATOLOGY Baso Moderate None Seen 02/15 [place] *ABN* [facility] (02/15/17 4:19 AM) HEMATOLOGY Segs-Bands # 5.8 1.5 - 8.1 02/15 [facility] HEMATOLOGY Metamyelocyt 2.0 0.0 - 1.0 02/15 es [facility] HEMATOLOGY Monocytes 3.0 2.0 - 12.0 02/15 [facility]EM[facility] Monocytes # 0.3 0.0 - 0.8 02/15 [facility]EM[facility] Bands 5.0 0.0 - 11.0 02/15 [facility] HEMATOLOGY Lymphocytes 26.0 20.0 - 02/15 40.0 [facility]EM[facility] Segs 63.0 45.0 - 02/15 75.0 [facility]EM[facility] Lymphocytes 2.2 1.0 - 5.5 02/15 MH # /2016 [facility] HEMATOLOGY Atypical 0.0 <=0.0 % 02/15 Lymph [facility] HEMATOLOGY Anisocyte 1+ None Seen 02/15 *ABN* [facility] (02/15/17 4:19 AM) HEMATOLOGY NRBC 7 02/15 [facility] HEMATOLOGY Myelocytes 1.0 <=0.0 % 02/15 [facility] HEMATOLOGY Plt Morph Normal 02/15 (02/15/17 4:19 AM) [facility] HEMATOLOGY PT 13.1 12.0 - 02/15 14.7 [facility] HEMATOLOGY INR 0.97 0.85 - 02/15 MH 1. [facility] HEMAT[facility] WBC 8.6 3.7 - 10.4 02/15 [facility] HEMATOLOGY MPV 8.9 7.4 - 10.4 02/15 [facility] HEMATOLOGY Platelet 135 133 - 450 02/15 [facility] HEMATOLOGY RDW 27.4 11.5 - 02/15 14. [facility] HEMAT[facility] Hct 20.4 36.0 - 02/15 MH 48.0 /2017 [facility] HEMATOLOGY MCH 38.8 27.0 - 02/15 MH 31.0 /2016 [facility] HEMATOLOGY Hgb 6.9 12.0 - 02/15 Result 16.0 Comment: [facility] Critical Result(s) called to JANETT CHRISTIE at 02/15/2017 05:31 by CA. Read back OK. HEMATOLOGY RBC 1.77 4.20 - 02/15 MH 5.40 /2016 [facility] HEMATOLOGY MCV 115.2 80.0 - 02/15 MH 98.0 /2016 [facility] HEMATOLOGY MCHC 33.6 32.0 - 02/15 MH 36.0 /2016 [facility] MOLECULAR C difficile Negative Negative 02/14 DIAGNOSTIC DNA (02/14/17 2:22 PM) /2016 [facility] CHEM PANEL Lipase Lvl 404 73 - 393 02/14 [facility] CHEM PANEL B/C Ratio 5 6 - 02/14 [facility] CHEM PANEL A/G Ratio 0.7 0.7 - 1.6 02/14 [facility] CHEM PANEL Globulin 2.9 2.7 - 4.2 02/14 [facility] CHEM PANEL AGAP 13.2 10.0 - 02/14 20.0 [facility] CHEM PANEL eGFR 112 02/14 Result Comment: The [facility] eGFR is calculated using the CKD-EPI formula. In most young, healthy individuals the eGFR will be >90 mL/min/1.73m2 . The eGFR declines with age. An eGFR of 60-89 may be normal in some populations, particularly the elderly, for whom the CKD-EPI formula has not been extensively validated. Use of the eGFR is not recommended in the following populations:< br/>
Sarah viduals with unstable creatinine concentration s, including patients and those with serious co-morbid conditions.<b r/>
Patie nts with extremes in muscle mass or diet.

The data above are obtained from the National Kidney Disease Education Program (NKDEP) which additionally recommends that when the eGFR is used in patients with extremes of body mass index for purposes of drug dosing, the eGFR should be multiplied by the estimated BMI. CHEM PANEL Bili Total 14.0 0.2 - 1.3 02/14 [facility] CHEM PANEL Calcium Lvl 7.9 8.5 - 10.5 02/14 [facility] CHEM PANEL CO2 23 24 - 32 02/14 /2016 [facility] CHEM PANEL Chloride Lvl 108 95 - 109 02/14 [facility] CHEM PANEL Potassium 3.2 3.5 - 5.1 02/14 MH Lvl /2016 [facility] CHEM PANEL AST 249 0 - 37 02/14 [facility] CHEM PANEL ALT 113 0 - 65 02/14 [facility] CHEM PANEL Alk Phos 354 39 - 136 02/14 [facility] CHEM PANEL Albumin Lvl 2.0 3.5 - 5.0 02/14 [facility] CHEM PANEL Total 4.9 6.4 - 8.4 02/14 Protein /2016 [facility] CHEM PANEL BUN 3 7 - 22 02/14 [facility] CHEM PANEL Creatinine 0.60 0.50 - 02/14 MH Lvl 1.40 /2016 [facility] CHEM PANEL Sodium Lvl 141 135 - 145 02/14 [facility] CHEM PANEL Glucose Lvl 115 70 - 99 02/14 [facility] HEMATOLOGY Segs 55.2 45.0 - 02/14 75.0 [facility] HEMATOLOGY Monocytes # 0.8 0.0 - 0.8 02/14 [facility] HEMAT[facility] Eosinophils 0.1 0.0 - 0.5 02/14 MH # /2016 [facility] HEMATOLOGY Segs-Bands # 4.3 1.5 - 8.1 02/14 [facility] HEMATOLOGY Lymphocytes 2.5 1.0 - 5.5 02/14 MH # /2016 [facility] HEMATOLOGY Eosinophils 1.6 0.0 - 4.0 02/14 [facility] HEMATOLOGY Basophils 1.5 0.0 - 1.0 02/14 [facility] HEMATOLOGY Plt Morph Normal 02/14 (02/14/17 6:00 AM) /2016 [facility] HEMATOLOGY Lymphocytes 31.7 20.0 - 02/14 MH 40.0 [facility] HEMATOLOGY Monocytes 10.0 2.0 - 12.0 02/14 [facility] HEMATOLOGY Macrocyte 3+ None Seen 02/14 *NA* /2016 [facility] (02/14/17 6:00 AM) HEMATOLOGY Anisocyte 1+ None Seen 02/14 *ABN* /2016 [facility] (02/14/17 6:00 AM) HEMATOLOGY Basophils # 0.1 0.0 - 0.2 02/14 [facility] HEMATOLOGY WBC 7.8 3.7 - 10.4 02/14 [facility] HEMATOLOGY Hgb 7.1 12.0 - 02/14 MH 16.0 /2016 [facility] HEMATOLOGY RBC 1.83 4.20 - 02/14 MH 5.40 /2016 [facility] HEMATOLOGY Hct 20.6 36.0 - 02/14 MH 48.0 /2016 [facility] HEMATOLOGY MPV 8.5 7.4 - 10.4 02/14 /2016 [facility] HEMATOLOGY MCH 38.9 27.0 - 02/14 MH 31.0 /2016 [facility] HEMATOLOGY MCV 113.0 80.0 - 02/14 MH 98.0 /2016 [facility] HEMATOLOGY RDW 25.4 11.5 - 02/14 MH 14.5 /2016 [facility] HEMATOLOGY MCHC 34.4 32.0 - 02/14 MH 36.0 /2016 [facility] HEMATOLOGY Platelet 138 133 - 450 02/14 [facility] CARDIAC BNP 87 <=100 02/12 ENZYMES pg/mL [facility] CHEM PANEL Globulin 3.0 2.7 - 4.2 02/12 [facility] CHEM PANEL Albumin Lvl 1.9 3.5 - 5.0 02/12 [facility] CHEM PANEL ALT 177 0 - 65 02/12 [facility] CHEM PANEL Bili Direct 6.6 0.0 - 0.3 02/12 [facility] CHEM PANEL AST 532 0 - 37 02/12 [facility] CHEM PANEL Bili Total 8.9 0.2 - 1.3 02/12 [facility] CHEM PANEL Alk Phos 349 39 - 136 02/12 [facility] CHEM PANEL A/G Ratio 0.6 0.7 - 1.6 02/12 [facility] CHEM PANEL Total 4.9 6.4 - 8.4 02/12 MH [facility] CHEM PANEL Bili 2.3 0.0 - 1.0 02/12 [facility] CHEM PANEL Lactic Acid 1.9 0.5 - 2.2 02/12 MH Lvl /2016 [facility] CHEM PANEL Lipase Lvl 116 73 - 393 02/12 [facility] ELECTROLYT Sodium Lvl 137 135 - 145 02/12 MH ES [facility] ELECTROLYT Chloride Lvl 102 95 - 109 02/12 MH ES [facility] ELECTROLYT Potassium 3.8 3.5 - 5.1 02/12 MH ES Lvl [facility] ELECT[facility]OL[facility] Glucose Lvl 87 70 - 99 02/12 MH ES /2017 [facility] ELECTROLYT BUN 3 7 - 22 02/12 MH ES /2016 [facility] ELECTROLYT CO2 21 24 - 32 02/12 ES /2016 [facility] ELECTROLYT AGAP 17.8 10.0 - 02/12 MH ES 20.0 /2016 [facility] ELECTROLYT Calcium Lvl 8.0 8.5 - 10.5 02/12 ES /2016 [facility] ELECTROLYT Creatinine 0.51 0.50 - 02/12 MH ES Lvl 1.40 /2016 [facility] ELECTROLYT eGFR 118 02/12 Result Comment: The [facility] eGFR is calculated using the CKD-EPI formula. In most young, healthy individuals the eGFR will be >90 mL/min/1.73m2 . The eGFR declines with age. An eGFR of 60-89 may be normal in some populations, particularly the elderly, for whom the CKD-EPI formula has not been extensively validated. Use of the eGFR is not recommended in the following populations:< br/>
Sarah viduals with unstable creatinine concentration s, including patients and those with serious co-morbid conditions.<b r/>
Patie nts with extremes in muscle mass or diet.

The data above are obtained from the National Kidney Disease Education Program (NKDEP) which additionally recommends that when the eGFR is used in patients with extremes of body mass index for purposes of drug dosing, the eGFR should be multiplied by the estimated BMI. HEMATOLOGY Lymphocytes 52.4 20.0 - 02/12 MH 40.0 2017 [facility] HEMATOLOGY Segs 40.2 45.0 - 02/12 MH 75.0 /2017 [facility] HEMATOLOGY Macrocyte 3+ None Seen 02/12 MH *NA* /2016 [facility] (02/12/17 4:19 AM) HEMATOLOGY Eosinophils 1.1 0.0 - 4.0 02/12 /2016 [facility] HEMATOLOGY Monocytes # 0.4 0.0 - 0.8 02/12 /2016 [facility] HEMATOLOGY Lymphocytes 3.7 1.0 - 5.5 02/12 MH # /2017 [facility] HEMATOLOGY Eosinophils 0.1 0.0 - 0.5 02/12 MH # /2017 [facility] HEMATOLOGY Segs-Bands # 2.9 1.5 - 8.1 02/12 /2016 [facility] HEMATOLOGY Monocytes 5.2 2.0 - 12.0 02/12 /2016 [facility] HEMATOLOGY MCH 38.1 27.0 - 02/12 MH 31.0 /2016 [facility] HEMATOLOGY MCV 110.2 80.0 - 02/12 MH 98.0 /2016 [facility] HEMATOLOGY Hct 22.0 36.0 - 02/12 MH 48.0 /2016 [facility] HEMATOLOGY MPV 9.2 7.4 - 10.4 02/12 MH /2016 [facility] HEMATOLOGY Platelet 135 133 - 450 02/12 /2016 [facility] HEMATOLOGY MCHC 34.5 32.0 - 02/12 MH 36.0 /2016 [facility] HEMATOLOGY RDW 23.8 11.5 - 02/12 MH 14.5 /2016 [facility] HEMATOLOGY Hgb 7.6 12.0 - 02/12 MH 16.0 /2016 [facility] HEMATOLOGY RBC 2.00 4.20 - 02/12 MH 5.40 /2016 [facility] HEMATOLOGY WBC 7.1 3.7 - 10.4 02/12 MH /2016 [facility] DRUG U Phencyc Negative Negative 02/12 SCREEN Scr *NA* /2016 [facility] (02/12/17 12:26 AM) DRUG U Benzodia Positive Negative 02/12 SCREEN Scr *ABN* /2016 [facility] (02/12/17 12:26 AM) DRUG U Opiate Scr Positive Negative 02/12 MH SCREEN *ABN* /2016 [facility] (02/12/17 12:26 AM) DRUG U Cannab Scr Negative Negative 02/12 SCREEN *NA* /2016 [facility] (02/12/17 12:26 AM) DRUG U Cocaine Negative Negative 02/12 SCREEN Scr *NA* /2016 [facility] (02/12/17 12:26 AM) DRUG U Amph Scr Negative Negative 02/12 SCREEN *NA* /2016 [facility] (02/12/17 12:26 AM) DRUG U Annel Scr Negative Negative 02/12 SCREEN *NA* /2016 [facility] (02/12/17 12:26 AM) DRUG UDS Note See Note 02/12 MH SCREEN (02/12/17 12:26 AM) /2016 [facility] AMINO ACID MMA Qnt 108 0 - 378 02/12 Result Comment: [facility] Performed At: [facility]
[address] [place], [place] [id number]<br/ >Trev Castañeda MD Ph:[phone] ANEMIA Folate Lvl 5.1 >=3.0 02/12 STUDY ng/mL /2016 [facility] ANEMIA Vitamin B12 1988 254 - 1320 02/12 STUDY Lvl /2016 [facility] ANEMIA RBC Folate 1209 280 - 791 02/12 STUDY /2016 [facility] ANEMIA Ferritin Lvl 1673 5 - 204 02/12 STUDY /2016 [facility] ANEMIA Iron 138 30 - 160 02/12 STUDY /2016 [facility] ANEMIA % Satur Fe 109 12 - 57 02/12 STUDY /2016 [facility] ANEMIA TIBC 127 228 - 428 02/12 STUDY /2016 [facility] ANEMIA UIBC -11 110 - 370 02/12 STUDY /2016 [facility] BLOOD BANK ABO/Rh O POS 02/12 RESULTS /2016 [facility] BLOOD BANK Antibody Negative 02/12 RESULTS Scrn (02/11/17 7:03 PM) [facility] CHEM PANEL Bili Direct 6.8 0.0 - 0.3 02/12 [facility] CHEM PANEL Bili 2.0 0.0 - 1.0 02/12 Indirect /2016 [facility] CHEM PANEL LDH 455 98 - 192 02/12 [facility] HEMATOLOGY Retic Auto 4.2 0.5 - 1.5 02/12 [facility] IMMUNOLOGY Homocyst Tot 19.6 3.7 - 13.9 02/12 [facility] IMMUNOLOGY Hep B Core Negative Negative 02/12 IgM *NA* /2016 [facility] (02/11/17 7:03 PM) IMMUNOLOGY Hep Bs Ag Negative Negative 02/12 *NA* /2016 [facility] (02/11/17 7:03 PM) IMMUNOLOGY Hep C Ab Positive 02/12 *ABN* /2016 [facility] (02/11/17 7:03 PM) IMMUNOLOGY Hep A IgM Negative Negative 02/12 *NA* /2016 [facility] (02/11/17 7:03 PM) IMMUNOLOGY Haptoglobin 80 16 - 200 02/12 [facility] HEMATOLOGY INR 1.02 0.85 - 02/11 1. [facility] HEMATOLOGY PT 13.6 12.0 - 02/11 14.7 [facility] HEMATOLOGY PTT 29.2 22.9 - 02/11 35.8 /2016 [facility] TOXICOLOGY Ethanol Lvl 188 02/11 [facility] TOXICOLOGY Etoh (%) 0.188 02/11 [facility] URINE AND Occult Bld Negative Negative 02/11 STOOL Stl (02/11/17 3:27 PM) [facility] CHEM PANEL Phosphorus 1.5 2.5 - 4.5 02/11 Result Comment: [facility] Critical Result(s) called to Duane Trinidad at 02/11/2017 18:56 by BW. Read back OK. CHEM PANEL Magnesium 1.1 1.8 - 2.4 02/11 Lvl /2016 [facility] ENDOCRINOL S Preg Negative Negative 02/11 OGY *NA* [facility] (02/11/17 2:20 PM) LIPIDS VLDL See Note 2 02/11 Result MH *NA* Comment: VLDL [facility] (02/11/17 2:20 PM) - Cholesterol level cannot be accurately calculated due to very high triglycerides (>400 mg/dL). LIPIDS CHD Risk 28.23 3.90 - 02/11 5.80 /2016 [facility] LIPIDS HDL 13 >=61 mg/dL 02/11 [facility] LIPIDS Chol 367 <=199 02/11 mg/dL [facility] LIPIDS LDL See Note <=99 mg/dL 02/11 Result (Calculated) mg/dL Comment: LDL [facility] cholesterol cannot be calculated due to very high triglycerides (>400 mg/dL). Recommend Direct LDL if clinically indicated. LIPIDS Trig 1067 <=149 02/11 mg/dL /2016 [facility] URINE AND UA <=1.0 0.1 - 1.0 02/11 STOOL Urobilinogen mg/dL /2016 [facility] URINE AND UA Blood Small Negative 02/11 STOOL *ABN* [facility] (02/11/17 2:20 PM) URINE AND UA Bili Negative Negative 02/11 STOOL *NA* [facility] (02/11/17 2:20 PM) URINE AND UA Color Marjan Yellow 02/11 STOOL *ABN* [facility] (02/11/17 2:20 PM) URINE AND UA Bacteria Occasional None Seen 02/11 STOOL /HPF /HPF /2016 [facility] URINE AND UA Amorph Occasional None Seen 02/11 STOOL Clover /HPF /HPF /2016 [facility] URINE AND UA RBC 2 0 - 2 02/11 STOOL /2016 [facility] URINE AND UA WBC 6 0 - 5 02/11 STOOL /2016 [facility] URINE AND UA Leuk Est Moderate Negative 02/11 STOOL *ABN* [facility] (02/11/17 2:20 PM) URINE AND UA Sq Epi Few /LPF Few /LPF 02/11 STOOL /2016 [facility] URINE AND UA Nitrite Negative Negative 02/11 STOOL (02/11/17 2:20 PM) [facility] URINE AND UA Glucose Negative Negative 02/11 STOOL mg/dL mg/dL [facility] URINE AND UA Ketones Negative Negative 02/11 STOOL mg/dL mg/dL [facility] URINE AND UA Protein Negative Negative 02/11 STOOL mg/dL mg/dL [facility] URINE AND UA Spec Grav 1.002 <=1.030 02/11 STOOL [facility] URINE AND UA pH 7.0 5.0 - 8.0 02/11 STOOL /2016 [facility] URINE AND UA Turbidity Slight Clear 02/11 STOOL *ABN* /2016 [facility] (02/11/17 2:20 PM) CARDIAC CK MB Index <4.0 0.0 - 2.5 02/11 ENZYMES [facility] CARDIAC Troponin-I <0.02 0.00 - 02/11 ENZYMES 0.40 [facility] CARDIAC CK MB <1.0 0.5 - 3.6 02/11 ENZYMES [facility] CARDIAC Total CK 25 12 - 191 02/11 ENZYMES /2016 [facility] CHEM PANEL Lipase Lvl 144 73 - 393 02/11 [facility] CHEM PANEL B/C Ratio 15 - 25 02/11 [facility] HEMATOLOGY Anisocyte 1+ None Seen 02/11 *ABN* /2016 [facility] (02/11/17 1:45 PM) HEMATOLOGY Basophils # 0.1 0.0 - 0.2 02/11 [facility] HEMATOLOGY Eosinophils 0.8 0.0 - 4.0 02/11 [facility] HEMATOLOGY Basophils 0.8 0.0 - 1.0 02/11 [facility] HEMATOLOGY Plt Morph Normal 02/11 (02/11/17 1:45 PM) /2016 [facility] HEMATOLOGY Eosinophils 0.1 0.0 - 0.5 02/11 # /2016 [facility] HEMATOLOGY PB Smear Macrocytic 02/11 Path Anemia. /2016 [facility] No Schistocyt es or Spherocyte s seen. No Blasts seen. Ted Mcdonald M.D. TOXICOLOGY Ethanol Lvl 231 07/16 [facility] TOXICOLOGY Etoh (%) 0.231 07/16 [facility] CHEM PANEL Glucose Lvl 90 70 - 99 07/16 [facility] CHEM PANEL eGFR 78 07/16 Result Comment: The [facility] eGFR is calculated using the CKD-EPI formula. In most young, healthy individuals the eGFR will be >90 mL/min/1.73m2 . The eGFR declines with age. An eGFR of 60-89 may be normal in some populations, particularly the elderly, for whom the CKD-EPI formula has not been extensively validated. Use of the eGFR is not recommended in the following populations:< br/>
Sarah viduals with unstable creatinine concentration s, including patients and those with serious co-morbid conditions.<b r/>
Patie nts with extremes in muscle mass or diet.

The data above are obtained from the National Kidney Disease Education Program (NKDEP) which additionally recommends that when the eGFR is used in patients with extremes of body mass index for purposes of drug dosing, the eGFR should be multiplied by the estimated BMI. CHEM PANEL Sodium Lvl 141 135 - 145 07/16 [facility] CHEM PANEL Potassium 4.0 3.5 - 5.1 07/16 Lvl [facility] CHEM PANEL Creatinine 0.91 0.50 - 07/16 Lvl 1.40 [facility] CHEM PANEL Chloride Lvl 108 95 - 109 07/16 [facility] CHEM PANEL BUN 19 7 - 22 07/16 [facility] CHEM PANEL Total 7.4 6.4 - 8.4 07/16 [facility] CHEM PANEL Albumin Lvl 3.7 3.5 - 5.0 07/16 [facility] CHEM PANEL Calcium Lvl 7.9 8.5 - 10.5 07/16 [facility] CHEM PANEL ALT 59 0 - 65 07/16 [facility] CHEM PANEL CO2 25 24 - 32 07/16 [facility] CHEM PANEL Bili Total 0.4 0.2 - 1.3 07/16 [facility] CHEM PANEL Alk Phos 78 39 - 136 07/16 [facility] CHEM PANEL AST 93 0 - 37 07/16 [facility] CHEM PANEL AGAP 12.0 10.0 - 07/16 MH 20.0 [facility] CHEM PANEL B/C Ratio 21 6 - 25 07/16 [facility] CHEM PANEL A/G Ratio 1.0 0.7 - 1.6 07/16 [facility] CHEM PANEL Globulin 3.7 2.7 - 4.2 07/16 [facility] DRUG UDS Note See Note 07/16 SCREEN *NA* /2016 [facility] (07/16/16 1:22 PM) DRUG U Phencyc Negative Negative 07/16 SCREEN Scr [facility] (07/16/16 1:22 PM) DRUG U Opiate Scr Negative Negative 07/16 MH SCREEN * [facility] (07/16/16 1:22 PM) DRUG U Cocaine Negative Negative 07/16 MH SCREEN Scr * [facility] (07/16/16 1:22 PM) DRUG U Cannab Scr Negative Negative 07/16 MH SCREEN * [facility] (07/16/16 1:22 PM) DRUG U Amph Scr Negative Negative 07/16 MH SCREEN * [facility] (07/16/16 1:22 PM) DRUG U Annel Scr Negative Negative 07/16 SCREEN * [facility] (07/16/16 1:22 PM) DRUG U Benzodia Negative Negative 07/16 SCREEN Scr * [facility] (07/16/16 1:22 PM) HEMATOLOGY Lymphocytes 4.0 1.0 - 5.5 07/16 MH # /2015 [facility] HEMATOLOGY Eosinophils 3.3 0.0 - 4.0 07/16 /2015 [facility] HEMATOLOGY Segs-Bands # 6.4 1.5 - 8.1 07/16 [facility] HEMAT[facility]Y Basophils 1.1 0.0 - 1.0 07/16 /2015 [facility] HEMATOLOGY Monocytes # 0.6 0.0 - 0.8 07/16 [facility] HEMATOLOG[facility] Segs 55.3 45.0 - 07/16 MH 75.0 /2015 [facility] HEMATOLOGY Monocytes 5.2 2.0 - 12.0 07/16 /2015 [facility] HEMATOLOGY Lymphocytes 35.1 20.0 - 07/16 MH 40.0 /2016 [facility] HEMATOLOGY Basophils # 0.1 0.0 - 0.2 07/16 [facility] HEMATOLOGY Eosinophils 0.4 0.0 - 0.5 07/16 MH # /2015 [facility] HEMATOLOGY PT 13.4 12.0 - 07/16 MH 14.7 /2015 [facility] HEMATOLOGY INR 1.00 0.85 - 07/16 MH 1.17 /2015 [facility] HEMATOLOGY PTT 27.4 22.9 - 07/16 MH 35.8 /2015 [facility] HEMATOLOGY WBC 11.5 3.7 - 10.4 07/16 /2015 [facility] HEMATOLOGY RDW 15.3 11.5 - 07/16 MH 14.5 /2015 [facility] HEMATOLOGY MCHC 34.0 32.0 - 07/16 MH 36.0 /2015 [facility] HEMATOLOGY MPV 7.1 7.4 - 10.4 07/16 [facility] HEMATOLOGY Platelet 297 133 - 450 07/16 /2015 [facility] HEMATOLOGY Hgb 15.5 12.0 - 07/16 MH 16.0 /2015 [facility] HEMATOLOGY RBC 4.61 4.20 - 07/16 MH 5.40 /2015 [facility] HEMATOLOGY MCV 98.7 80.0 - 07/16 98.0 /2015 [facility] HEMATOLOGY Hct 45.5 36.0 - 07/16 MH 48.0 /2015 [facility] HEMATOLOGY MCH 33.6 27.0 - 07/16 MH 31.0 /2015 [facility] TOXICOLOGY Salicylate 1.8 0.0 - 30.0 07/16 Lvl /2015 [facility] TOXICOLOGY Acetaminoph <2 10 - 07/16 Lvl (07/16/16 1:22 PM) /2015 [facility] TOXICOLOGY Ethanol Lvl 303 07/16 Result Comment: [facility] Critical Result(s) called to Samy Romero at 07/16/2016 13:52 by RUBÉN. Read back OK. TOXICOLOGY Etoh (%) 0.303 07/16 [facility] URINE AND UA Sq Epi Occasional Few /LPF 07/02 STOOL /LPF /2015 [facility] URINE AND UA RBC None Seen 0 - 2 07/02 STOOL (07/02/16 11:01 AM) [facility] URINE AND UA Bacteria Occasional None Seen 07/02 STOOL /HPF /HPF /2015 [facility] URINE AND UA WBC 0-2 /HPF None Seen 07/02 STOOL /HPF /2015 [facility] URINE AND UA Spec Grav <=1.005 <=1.030 07/02 STOOL *NA* /2015 [facility] (07/02/16 11:01 AM) URINE AND UA pH 7.0 5.0 - 8.0 07/02 STOOL /2015 [facility] URINE AND UA Color STRAW 07/02 STOOL /2015 [facility] URINE AND UA Turbidity Clear Clear 07/02 STOOL (07/02/16 11:01 AM) /2015 [facility] URINE AND UA Ketones Negative Negative 07/02 STOOL *NA* /2015 [facility] (07/02/16 11:01 AM) URINE AND UA Bili Negative Negative 07/02 STOOL *NA* /2015 [facility] (07/02/16 11:01 AM) URINE AND UA Blood Negative Negative 07/02 STOOL (07/02/16 11:01 AM) [facility] URINE AND UA Protein Negative Negative 07/02 STOOL (07/02/16 11:01 AM) [facility] URINE AND UA Glucose Negative Negative 07/02 STOOL (07/02/16 11:01 AM) [facility] URINE AND UA Nitrite Negative Negative 07/02 STOOL (07/02/16 11:01 AM) [facility] URINE AND UA Leuk Est Negative Negative 07/02 STOOL (07/02/16 11:01 AM) [facility] URINE AND UA 0.2 0.1 - 1.0 07/02 STOOL Urobilinogen [facility] URINE CHEM U Preg Negative Negative 07/02 (07/02/16 11:01 AM) [facility] CHEM PANEL Phosphorus 2.7 2.5 - 4.5 07/02 [facility] CHEM PANEL Lipase Lvl 168 73 - 393 07/02 [facility] CHEM PANEL Magnesium 2.0 1.8 - 2.4 07/[address] [facility] CHEM PANEL eGFR 72 07/02 Result Comment: The [facility] eGFR is calculated using the CKD-EPI formula. In most young, healthy individuals the eGFR will be >90 mL/min/1.73m2 . The eGFR declines with age. An eGFR of 60-89 may be normal in some populations, particularly the elderly, for whom the CKD-EPI formula has not been extensively validated. Use of the eGFR is not recommended in the following populations:< br/>
Sarah viduals with unstable creatinine concentration s, including patients and those with serious co-morbid conditions.<b r/>
Patie nts with extremes in muscle mass or diet.

The data above are obtained from the National Kidney Disease Education Program (NKDEP) which additionally recommends that when the eGFR is used in patients with extremes of body mass index for purposes of drug dosing, the eGFR should be multiplied by the estimated BMI. CHEM PANEL Glucose Lvl 89 70 - 99 07/02 [facility] CHEM PANEL BUN 12 7 - 22 07/02 [facility] CHEM PANEL Potassium 2.6 3.5 - 5.1 07/02 Result Lv Comment: [facility] Critical Result(s) called to Bailey Wilks RN at 07/02/2016 11:07 by Maddy. Read back OK. CHEM PANEL Sodium Lvl 139 135 - 145 07/02 /2015 [facility] CHEM PANEL Creatinine 0.96 0.50 - 11 MH Lvl 1.40 /2015 [facility] CHEM PANEL Albumin Lvl 3.7 3.5 - 5.0 07/02 /2015 [facility] CHEM PANEL Total 7.1 6.4 - 8.4 07/02 MH Protein /2015 [facility] CHEM PANEL ALT 41 0 - 65 07/02 /2015 [facility] CHEM PANEL A/G Ratio 1.1 0.7 - 1.6 07/02 /2015 [facility] CHEM PANEL Globulin 3.4 2.7 - 4.2 07/02 /2015 [facility] CHEM PANEL CO2 28 24 - 32 07/02 /2015 [facility] CHEM PANEL Chloride Lvl 102 95 - 109 07/02 /2015 [facility] CHEM PANEL B/C Ratio 12 6 - 25 07/02 /2015 [facility] CHEM PANEL Calcium Lvl 8.3 8.5 - 10.5 07/02 /2015 [facility] CHEM PANEL AGAP 11.6 10.0 - 11 20.0 /2015 [facility] CHEM PANEL AST 41 0 - 37 07/02 /2015 [facility] CHEM PANEL Bili Total 0.3 0.2 - 1.3 07/02 /2015 [facility] CHEM PANEL Alk Phos 72 39 - 136 07/02 MH /2015 [facility] HEMATOLOGY Eosinophils 0.3 0.0 - 0.5 07/02 MH # /2016 [facility] HEMATOLOGY Segs 71.9 45.0 - 07/02 MH 75.0 /2015 [facility] HEMATOLOGY Lymphocytes 21.4 20.0 - 07/02 MH 40.0 /2016 [facility] HEMATOLOGY Monocytes 3.3 2.0 - 12.0 07/02 /2015 [facility] HEMATOLOGY Basophils 1.1 0.0 - 1.0 07/02 MH /2015 [facility] HEMATOLOGY Lymphocytes 2.5 1.0 - 5.5 07/02 MH # /2016 [facility] HEMATOLOGY Eosinophils 2.3 0.0 - 4.0 07/02 /2015 [facility] HEMATOLOGY Basophils # 0.1 0.0 - 0.2 07/02 /2015 [facility] HEMATOLOGY Monocytes # 0.4 0.0 - 0.8 07/02 /2015 [facility] HEMATOLOGY Segs-Bands # 8.4 1.5 - 8.1 07/02 /2015 [facility] HEMATOLOGY PTT 18.7 22.9 - 07/02 MH 35.8 /2015 [facility] HEMATOLOGY INR 0.91 0.85 - 07/02 MH 1.17 /2015 [facility] HEMATOLOGY PT 12.4 12.0 - 07/02 MH 14.7 /2015 [facility] HEMATOLOGY RDW 14.5 11.5 - 07/02 MH 14.5 /2015 [facility] HEMATOLOGY MPV 6.9 7.4 - 10.4 07/02 [facility] HEMATOLOGY Platelet 290 133 - 450 07/02 /2015 [facility] HEMATOLOGY WBC 11.7 3.7 - 10.4 11 /2015 [facility] HEMATOLOGY Hgb 13.8 12.0 - 07/02 MH 16.0 /2015 [facility] HEMATOLOGY RBC 4.18 4.20 - 07/02 MH 5.40 /2015 [facility] HEMATOLOGY MCHC 34.0 32.0 - 07/02 MH 36.0 /2015 [facility] HEMATOLOGY Hct 40.6 36.0 - 07/02 MH 48.0 /2015 [facility] HEMATOLOGY MCV 97.2 80.0 - 07/02 98.0 /2015 [facility] HEMATOLOGY MCH 33.1 27.0 - 07/02 MH 31.0 /2015 [facility] TOXICOLOGY Etoh (%) 0.332 07/02 [facility] TOXICOLOGY Ethanol Lvl 332 07/02 Result Comment: [facility] Critical Result(s) called to Yvette Guthrie RN at 07/02/2016 11:09 by [facility]. Read back OK. CHEM PANEL Phosphorus 4.2 2.5 - 4.5 04/30 [facility] CHEM PANEL Magnesium 2.0 1.8 - 2.4 04/30 Lvl /2015 [facility] CHEM PANEL Glucose Lvl 95 70 - 99 04/30 [facility] CHEM PANEL BUN 8 7 - 22 04/30 [facility] CHEM PANEL Sodium Lvl 141 135 - 145 04/30 [facility] CHEM PANEL CO2 30 24 - 32 04/30 [facility] CHEM PANEL Chloride Lvl 104 95 - 109 04/30 [facility] CHEM PANEL eGFR 101 04/30 Result Comment: The [facility] eGFR is calculated using the CKD-EPI formula. In most young, healthy individuals the eGFR will be >90 mL/min/1.73m2 . The eGFR declines with age. An eGFR of 60-89 may be normal in some populations, particularly the elderly, for whom the CKD-EPI formula has not been extensively validated. Use of the eGFR is not recommended in the following populations:< br/>
Sarah viduals with unstable creatinine concentration s, including patients and those with serious co-morbid conditions.<b r/>
Patie nts with extremes in muscle mass or diet.

The data above are obtained from the National Kidney Disease Education Program (NKDEP) which additionally recommends that when the eGFR is used in patients with extremes of body mass index for purposes of drug dosing, the eGFR should be multiplied by the estimated BMI. CHEM PANEL AGAP 10.3 10.0 - 04/30 MH 20.0 /2015 [facility] CHEM PANEL Creatinine 0.74 0.50 - 04/30 MH Lvl 1.40 /2015 [facility] CHEM PANEL Potassium 3.3 3.5 - 5.1 04/30 MH Lvl /2015 [facility] CHEM PANEL Calcium Lvl 8.9 8.5 - 10.5 04/30 /2015 [facility] HEMATOLOGY Hct 40.1 36.0 - 04/30 MH 48.0 /2015 [facility] HEMATOLOGY Hgb 13.3 12.0 - 04/30 MH 16.0 /2015 [facility] HEMATOLOGY WBC 6.2 3.7 - 10.4 04/30 MH /2015 [facility] HEMATOLOGY RBC 3.92 4.20 - 04/30 MH 5.40 /2015 [facility] HEMATOLOGY Platelet 102 133 - 450 04/30 /2015 [facility] HEMATOLOGY RDW 18.1 11.5 - 04/30 MH 14.5 /2015 [facility] HEMATOLOGY MCHC 33.2 32.0 - 04/30 MH 36.0 /2015 [facility] HEMATOLOGY MCH 33.9 27.0 - 04/30 MH 31.0 /2015 [facility] HEMATOLOGY MCV 102.2 80.0 - 04/30 MH 98.0 /2015 [facility] HEMATOLOGY MPV 8.3 7.4 - 10.4 04/30 MH [facility] CHEM PANEL Phosphorus 3.3 2.5 - 4.5 04/29 MH [facility] CHEM PANEL Magnesium 1.7 1.8 - 2.4 04/29 Lvl /2015 [facility] CHEM PANEL eGFR 114 04/[address] [facility] Comment: The [facility] eGFR is calculated using the CKD-EPI formula. In most young, healthy individuals the eGFR will be >90 mL/min/1.73m2 . The eGFR declines with age. An eGFR of 60-89 may be normal in some populations, particularly the elderly, for whom the CKD-EPI formula has not been extensively validated. Use of the eGFR is not recommended in the following populations:< br/>
Sarah viduals with unstable creatinine concentration s, including patients and those with serious co-morbid conditions.<b r/>
Patie nts with extremes in muscle mass or diet.

The data above are obtained from the National Kidney Disease Education Program (NKDEP) which additionally recommends that when the eGFR is used in patients with extremes of body mass index for purposes of drug dosing, the eGFR should be multiplied by the estimated BMI. CHEM PANEL Calcium Lvl 8.2 8.5 - 10.5 / MH /2015 [facility] CHEM PANEL AGAP 11.5 10.0 - 09 MH 20.0 /2015 [facility] CHEM PANEL CO2 26 24 - 32 / /2015 [facility] CHEM PANEL Sodium Lvl 141 135 - 145 / MH [facility] CHEM PANEL Creatinine 0.58 0.50 - 09/08 MH Lvl 1.40 /2015 [facility] CHEM PANEL Glucose Lvl 98 70 - 99 09/ /2015 [facility] CHEM PANEL BUN 5 7 - 22 / /2015 [facility] CHEM PANEL Chloride Lvl 107 95 - 109 /08 MH [facility] CHEM PANEL Potassium 3.5 3.5 - 5.1 09/08 MH Lvl /2015 [facility] HEMATOLOGY Segs-Bands # 2.3 1.5 - 8.1 / MH /2015 [facility] HEMATOLOGY Basophils 1.1 0.0 - 1.0 09/08 MH /2016 [facility] HEMATOLOGY Lymphocytes 1.9 1.0 - 5.5 09/08 MH # /2016 [facility] HEMATOLOGY Eosinophils 6.5 0.0 - 4.0 09/08 MH /2015 [facility] HEMATOLOGY Monocytes # 0.3 0.0 - 0.8 09/08 MH /2015 [facility] HEMATOLOGY Lymphocytes 39.9 20.0 - 09/08 MH 40.0 /2015 [facility] HEMATOLOGY Segs 46.5 45.0 - 09/08 MH 75.0 /2015 [facility] HEMATOLOGY Monocytes 6.0 2.0 - 12.0 09/08 MH /2015 [facility] HEMATOLOGY Basophils # 0.1 0.0 - 0.2 09/08 MH /2015 [facility] HEMATOLOGY Eosinophils 0.3 0.0 - 0.5 04/29 MH # /2016 [facility] HEMATOLOGY Macrocyte 1+ None Seen 04/29 *ABN* /2015 [facility] (04/29/16 4:30 AM) HEMATOLOGY MPV 9.1 7.4 - 10.4 04/29 /2015 [facility] HEMATOLOGY RDW 17.3 11.5 - 04/29 14.5 /2015 [facility] HEMATOLOGY Platelet 87 133 - 450 04/29 [facility] HEMATOLOGY WBC 4.9 3.7 - 10.4 04/29 [facility] HEMATOLOGY Hct 37.9 36.0 - 04/29 48.0 /2015 [facility] HEMATOLOGY Hgb 12.9 12.0 - 04/29 16.0 [facility] HEMATOLOGY RBC 3.79 4.20 - 04/29 5.40 /2015 [facility] HEMATOLOGY MCH 33.9 27.0 - 04/29 31.0 [facility] HEMATOLOGY MCHC 33.9 32.0 - 04/29 36.0 [facility] HEMATOLOGY MCV 100.1 80.0 - 04/29 98.0 [facility] CHEM PANEL eGFR 117 04/28 Result Comment: The [facility] eGFR is calculated using the CKD-EPI formula. In most young, healthy individuals the eGFR will be >90 mL/min/1.73m2 . The eGFR declines with age. An eGFR of 60-89 may be normal in some populations, particularly the elderly, for whom the CKD-EPI formula has not been extensively validated. Use of the eGFR is not recommended in the following populations:< br/>
Sarah viduals with unstable creatinine concentration s, including patients and those with serious co-morbid conditions.<b r/>
Patie nts with extremes in muscle mass or diet.

The data above are obtained from the National Kidney Disease Education Program (NKDEP) which additionally recommends that when the eGFR is used in patients with extremes of body mass index for purposes of drug dosing, the eGFR should be multiplied by the estimated BMI. CHEM PANEL Chloride Lvl 110 95 - 109 04/28 [facility] CHEM PANEL Calcium Lvl 7.0 8.5 - 10.5 04/28 [facility] CHEM PANEL AGAP 10.9 10.0 - 04/28 20.0 [facility] CHEM PANEL CO2 25 24 - 32 04/28 /2015 [facility] CHEM PANEL Glucose Lvl 233 70 - 99 / /2015 [facility] CHEM PANEL BUN 2 7 - 22 04/28 [facility] CHEM PANEL Creatinine 0.54 0.50 - 09/ MH Lvl 1.40 /2015 [facility] CHEM PANEL Sodium Lvl 143 135 - 145 04/28 [facility] CHEM PANEL Potassium 2.9 3.5 - 5.1 04/28 Result Lv Comment: [facility] Critical Result(s) called to Vel Horan at 04/28/2016 05:22 by MCKENNA. Read back OK. CHEM PANEL Phosphorus 2.0 2.5 - 4.5 04/28 [facility] CHEM PANEL Magnesium 2.0 1.8 - 2.4 04/28 Lv [facility] HEMATOLOGY Basophils # 0.1 0.0 - 0.2 04/28 [facility] HEMATOLOGY Macrocyte 1+ None Seen 04/28 MH *ABN* /2015 [facility] (04/28/16 4:45 AM) HEMATOLOGY Lymphocytes 2.4 1.0 - 5.5 04/28 MH # /2015 [facility] HEMATOLOGY Basophils 1.2 0.0 - 1.0 04/28 /2015 [facility] HEMATOLOGY Segs-Bands # 1.7 1.5 - 8.1 04/28 [facility] HEMATOLOGY Monocytes 7.7 2.0 - 12.0 04/28 /2015 [facility] HEMATOLOGY Eosinophils 6.9 0.0 - 4.0 04/28 [facility] HEMATOLOGY Segs 35.5 45.0 - 09/ MH 75.0 /2015 [facility] HEMATOLOGY Lymphocytes 48.7 20.0 - 09 MH 40.0 /2015 [facility] HEMATOLOGY Monocytes # 0.4 0.0 - 0.8 04/28 /2015 [facility] HEMATOLOGY Eosinophils 0.3 0.0 - 0.5 / MH # /2015 [facility] HEMATOLOGY MCHC 33.6 32.0 - 09/ MH 36.0 /2015 [facility] HEMATOLOGY MCH 33.8 27.0 - 09/07 MH 31.0 /2015 [facility] HEMATOLOGY MCV 100.5 80.0 - 09 MH 98.0 /2015 [facility] HEMATOLOGY Hct 38.3 36.0 - 09/ MH 48.0 /2015 [facility] HEMATOLOGY MPV 8.3 7.4 - 10.4 04/28 /2015 [facility] HEMATOLOGY RDW 17.2 11.5 - 09 MH 14.5 /2016 [facility] HEMATOLOGY Platelet 87 133 - 450 09/ MH /2016 [facility] HEMATOLOGY RBC 3.82 4.20 - 09/ MH 5.40 /2016 [facility] HEMATOLOGY Hgb 12.9 12.0 - 09/ MH 16.0 /2016 [facility] HEMATOLOGY WBC 4.9 3.7 - 10.4 09/ MH /2016 [facility] ANEMIA Vitamin B12 1820 254 - 1320 09/ STUDY Lvl /2016 [facility] CHEM PANEL Ammonia 32.0 <=45.0 09/ uMol/L /2016 [facility] HEMATOLOGY Basophils 0.7 0.0 - 1.0 09/ MH /2016 [facility] HEMATOLOGY Segs-Bands # 4.1 1.5 - 8.1 09/ MH /2016 [facility] HEMATOLOGY Eosinophils 3.9 0.0 - 4.0 09/ MH /2015 [facility] HEMATOLOGY Monocytes # 0.3 0.0 - 0.8 / MH /2015 [facility] HEMATOLOGY Eosinophils 0.3 0.0 - 0.5 09/ MH # /2016 [facility] HEMATOLOGY Segs 64.2 45.0 - 09/ MH 75.0 /2016 [facility] HEMATOLOGY Lymphocytes 26.5 20.0 - 09/ MH 40.0 /2016 [facility] HEMATOLOGY Monocytes 4.7 2.0 - 12.0 09/ MH /2016 [facility] HEMATOLOGY Lymphocytes 1.7 1.0 - 5.5 09/06 MH # /2016 [facility] CHEM PANEL Bili Total 1.0 0.2 - 1.3 09/ MH /2015 [facility] CHEM PANEL Alk Phos 123 39 - 136 09/ MH /2015 [facility] CHEM PANEL AST 213 0 - 37 09/ MH /2016 [facility] CHEM PANEL Total 6.7 6.4 - 8.4 /05 Protein /2016 [facility] CHEM PANEL Albumin Lvl 3.3 3.5 - 5.0 / MH /2016 [facility] CHEM PANEL Globulin 3.4 2.7 - 4.2 / MH /2016 [facility] CHEM PANEL A/G Ratio 1.0 0.7 - 1.6 / MH /2015 [facility] CHEM PANEL ALT 96 0 - 65 / MH /2015 [facility] CHEM PANEL B/C Ratio 4 6 - 25 / MH /2015 [facility] HEMATOLOGY Basophils # 0.1 0.0 - 0.2 04/26 /2015 [facility] Pathology Reports No Data Provided for This Section Diagnostic Reports Report Value Date Source Chest 1view DX Clinical Indication: - Tachycardia, nausea, vomiting, and tremors. 12/15/2018 [facility] Comparison: None FINDINGS: The cardiomediastinal silhouette is within normal limits for appearance. No focal pulmonary consolidation, pneumothorax or pleural effusion. IMPRESSION: 1. No acute cardiopulmonary process. SL: [id number] Brain wo contrast CT Clinical Indication: Confusion, forgetfulness for 2 days ; 05/03/2017 [facility] Comparison: April 26, 2016 TECHNIQUE: CT images were obtained from the foramen magnum to the vertex without the use of intravenous contrast on a multidetector CT. Coronal and sagittal reconstructions were obtained. CT radiation dose DLP: 1058.18 mGy-cm FINDINGS: BRAIN PARENCHYMA: There are normal barahona-white interfaces, sulci and gyri. There are no focal mass lesions on this noncontrast head CT. There is no mass effect, midline shift or edema. There are no intra -axial or extra-axial fluid collections, intraventricular or intraparenchymal hemorrhage. The pineal, sellar, brainstem, cerebellum and skull base regions appear unremarkable. VENTRICLES: The lateral ventricles, third and fourth ventricles appear unremarkable. The basilar cisterns are normal. ORBITS, MASTOIDS AND PARANASAL SINUSES: The visualized orbits and paranasal sinuses are unremarkable. The mastoid air cells are clear. SKULL: There are no osseous abnormalities. If there is further concern for intracranial pathology or acute stroke, MRI of the brain may be performed for complete assessment. IMPRESSION: Unremarkable noncontrast head CT with no mass, hemorrhage or subacute stroke. SL: [id number] Gallbladder scan HIDA Clinical Indication: - elevated LFTs; 02/11/2017 [facility] meds [place] Comparison: None TECHNIQUE: Hepatobiliary scan is performed after intravenous administration of 5 mCi of Tc-99m Choletec. FINDINGS: There is prompt hepatic uptake and excretion with progression of the radiotracer through a non dilated biliary tree and into small bowel. Gallbladder filling is first noted at 75 minutes past radiotracer injection after intravenous administration of morphine sulfate.. It was visualized 10 minutes after the intravenous administration of morphine. IMPRESSION: No evidence of acute cholecystitis. The delayed visualization of the gallbladder after intravenous administration of morphine 2 mg raise the possibility of chronic cholecystitis. SL: [id number] ED Abdomen/Pelvis IV Clinical Indication: Jaundice. Nausea, vomiting, diarrhea for 6 days; 02/11/2017 [facility] contrast only CT Comparison: None TECHNIQUE: Sequential trans-axial images were obtained with a multi-detector helical CT after administration of iodinated contrast. Coronal and sagittal reconstructions were obtained. 100 mL of omnipaqu e contrast material was used for the exam. No oral contrast material was used for the exam. CT Radiation Dose DLP 442.01 mGy-cm FINDINGS: CT ABDOMEN WITH CONTRAST: VISUALIZED LUNG BASES: Unremarkable. Bilateral breast implants are visualized. ABDOMINAL SOLID ORGANS: The liver demonstrates decreased attenuation without ductal dilatation, cyst, mass. The liver is enlarged measuring 24 cm. The gallbladder is contracted. There is no pericholecystic fluid or intraluminal stone. The spleen demonstrates normal size and contour. The adrenal glands are within normal limits. The pancreas demonstrated no ductal dilatation, cyst, mass. The kidneys demonstrate no renal stones, hydronephrosis, or hydroureter. The extrahepatic duct/ common bile duct appears unremarkable. STOMACH AND BOWEL: The stomach is unremarkable. The unopacified loops of small bowel in the abdomen are unremarkable. The unopacified loops of colon in the abdomen are unremarkable. There is a normal appendix. PERITONEUM AND RETROPERITONEUM: There is no abdominal lymphadenopathy. There is no pneumoperitoneum or ascites. The retroperitoneal region appears unremarkable. VASCULAR STRUCTURES: The abdominal aorta appears unremarkable. There are widely patent bilateral renal arteries. The mesenteric arteries appear unremarkable. The inferior vena cava appears normal. The r enal veins, mesenteric veins and portal vein appear unremarkable. OSSEOUS STRUCTURES: There are no definite significant osseous abnormalities seen. CT PELVIS WITH CONTRAST: BOWEL: The unopacified loops of small bowel in the pelvis are unremarkable. The unopacified loops of colon in the pelvis are unremarkable. There is a normal appendix. The uterus has normal size and contour. There is an intrauterine device in place. PERITONEUM AND EXTRAPERITONEAL REGIONS: There is no pelvic lymphadenopathy or ascites. The inguinal regions are unremarkable. BLADDER: The bladder appears unremarkable. OSSEOUS STRUCTURES: There are no definite significant osseous abnormalities seen. IMPRESSION: 1. Hepatic megaly and hepatic steatosis. 2. Normal appendix. 3. Intrauterine device in place. SL: [id number] Gallbladder US Clinical Indication: Vomiting - vomiting, jaudiced 02/11/2017 [facility] Comparison: None TECHNIQUE: Grayscale and limited color sonographic evaluation of the right upper quadrant of the abdomen and gallbladder region was performed with standard technique. FINDINGS: LIVER: The liver appears enlarged, measuring up to 22.5 cm in maximal diameter. There is diffusely increased hepatic echotexture. The liver appears grossly normal in contour on the obtained images. BILE DUCTS: The intrahepatic and extrahepatic bile ducts are not dilated with the common bile duct measuring 2.5 mm. GALLBLADDER: There are no stones identified within the gallbladder. There is no sludge, pericholecystic fluid or gallbladder wall thickening. PANCREAS: The visualized pancreas appears unremarkable. KIDNEY: The right kidney measures 10.3 x 5.0 x 4.9 cm. There is normal renal contour and morphology, with normal parenchymal echotexture. There is no hydronephrosis. AORTA AND INFERIOR VENA CAVA: Visualized portions appear unremarkable. ASCITES: There is no right upper quadrant abdominal ascites. IMPRESSION: 1. Hepatomegaly with fatty infiltration of the liver. 2. No sonographic evidence for acute cholecystitis. No echogenic, shadowing gallstones visualized. SL: [id number] Brain wo contrast CT I have reviewed the examination and concur with the interpretation. 04/26/2016 [facility] Clinical Indication: Weakness , alcohol withdrawal, hypertension, anxiety and depression Comparison: None TECHNIQUE: CT images were obtained from the foramen magnum to the vertex after the use of intravenous contrast on a multidetector CT. 3-D sagittal and coronal reconstructions submitted as well. CONTRAST: None CT radiation dose DLP: 1036.99 mGy-cm FINDINGS: Skull base and posterior fossa evaluation degraded by motion artifact. BRAIN PARENCHYMA: There are normal barahona-white interfaces, sulci and gyri. There are no focal mass lesions on the noncontrast head CT. There is no mass effect, midline shift or edema. There are no intra-axial or extra-axial fluid collections, intraventricular or intraparenchymal hemorrhage. VENTRICLES: No acute hydrocephalus. The basilar cisterns are normal. ORBITS, MASTOIDS AND PARANASAL SINUSES: The visualized orbits and paranasal sinuses are unremarkable. The mastoid air cells are clear. SKULL: No depressed skull fractures. If there is continued concern, further assessment with dedicated MR of the brain may be beneficial. IMPRESSION: 1. No CT evidence for acute intracranial process within the limitations discussed above. SL: [id number] Consultation Notes No Data Provided for This Section Discharge Summaries No Data Provided for This Section History and Physicals No Data Provided for This Section Vital Signs Vital Sign Value Date Comments Source Temperature Oral (F) 97.5 F 12/16/2018 [facility] Systolic (mm Hg) 117 12/16/2018 [facility] Diastolic (mm Hg) 83 12/16/2018 [facility] Respitory Rate 20 12/16/2018 [facility] Respitory Rate 19 12/15/2018 [facility] Systolic (mm Hg) 106 12/15/2018 [facility] Diastolic (mm Hg) 75 12/15/2018 [facility] Systolic (mm Hg) 113 12/15/2018 [facility] Diastolic (mm Hg) 74 12/15/2018 [facility] Respitory Rate 20 12/15/2018 [facility] Weight 52.045 12/15/2018 [facility] Temperature Oral (F) 98 F 12/15/2018 [facility] Height 157.48 cm 12/15/2018 [facility] BMI Calculated 20.99 12/15/2018 [facility] Heart Rate 115 12/15/2018 [facility] Respitory Rate 18 11/18/2018 [facility] Heart Rate 98 11/18/2018 [facility] Systolic (mm Hg) 142 11/18/2018 [facility] Diastolic (mm Hg) 85 11/18/2018 [facility] Systolic (mm Hg) 146 11/18/2018 [facility] Diastolic (mm Hg) 85 11/18/2018 [facility] Respitory Rate 18 11/18/2018 [facility] Respitory Rate 18 11/18/2018 [facility] Systolic (mm Hg) 143 11/18/2018 [facility] Diastolic (mm Hg) 89 11/18/2018 [facility] BMI Calculated 22.31 11/18/2018 [facility] Weight 51.818 11/18/2018 [facility] Height 152.4 cm 11/18/2018 [facility] Heart Rate 91 11/18/2018 [facility] Temperature Oral (F) 98.4 F 11/18/2018 [facility] Systolic (mm Hg) 147 09/25/2018 [facility] Diastolic (mm Hg) 84 09/25/2018 [facility] Respitory Rate 17 09/25/2018 [facility] Heart Rate 91 09/25/2018 [facility] Respitory Rate 18 09/25/2018 [facility] Heart Rate 84 09/25/2018 [facility] Systolic (mm Hg) 153 09/25/2018 [facility] Diastolic (mm Hg) 77 09/25/2018 [facility] Heart Rate 86 09/25/2018 [facility] Respitory Rate 18 09/25/2018 [facility] Systolic (mm Hg) 143 09/25/2018 [facility] Diastolic (mm Hg) 84 09/25/2018 [facility] Weight 53.722 09/25/2018 [facility] BMI Calculated 23.13 09/25/2018 [facility] Height 152.4 cm 09/25/2018 [facility] Temperature Oral (F) 98.4 F 09/25/2018 [facility] Systolic (mm Hg) 172 05/03/2017 [facility] Diastolic (mm Hg) 72 05/03/2017 [facility] Respitory Rate 18 05/03/2017 [facility] Systolic (mm Hg) 156 05/03/2017 [facility] Diastolic (mm Hg) 80 05/03/2017 [facility] Respitory Rate 20 05/03/2017 [facility] Respitory Rate 18 05/03/2017 [facility] Systolic (mm Hg) 160 05/03/2017 [facility] Diastolic (mm Hg) 87 05/03/2017 [facility] Weight 52.864 05/03/2017 [facility] BMI Calculated 22.76 05/03/2017 [facility] Temperature Oral (F) 97.7 F 05/03/2017 [facility] Height 152.4 cm 05/03/2017 [facility] Heart Rate 79 05/03/2017 [facility] Systolic (mm Hg) 101 02/15/2017 [facility] Diastolic (mm Hg) 68 02/15/2017 [facility] Respitory Rate 18 02/15/2017 [facility] Heart Rate 70 02/15/2017 [facility] Temperature Oral (F) 98.6 F 02/15/2017 [facility] Systolic (mm Hg) 135 02/15/2017 [facility] Diastolic (mm Hg) 60 02/15/2017 [facility] Temperature Oral (F) 98.2 F 02/15/2017 [facility] Heart Rate 94 02/15/2017 [facility] Respitory Rate 18 02/15/2017 [facility] Systolic (mm Hg) 120 02/15/2017 [facility] Diastolic (mm Hg) 82 02/15/2017 [facility] Heart Rate 98 02/15/2017 [facility] Temperature Oral (F) 98.6 F 02/15/2017 [facility] Respitory Rate 17 02/15/2017 [facility] Weight 50.2 02/11/2017 [facility] BMI Calculated 21.61 02/11/2017 [facility] Height 152.4 cm 02/11/2017 [facility] Height 152.4 cm 02/11/2017 [facility] BMI Calculated 21.21 02/11/2017 [facility] Weight 49.261 02/11/2017 [facility] Respitory Rate 16 07/17/2016 [facility] Temperature Oral (F) 97.7 F 07/17/2016 [facility] Heart Rate 75 07/17/2016 [facility] Systolic (mm Hg) 121 07/17/2016 [facility] Diastolic (mm Hg) 85 07/17/2016 [facility] Heart Rate 81 07/17/2016 [facility] Respitory Rate 18 07/17/2016 [facility] Temperature Oral (F) 97.9 F 07/17/2016 [facility] Systolic (mm Hg) 125 07/17/2016 [facility] Diastolic (mm Hg) 88 07/17/2016 [facility] Weight 51.364 07/16/2016 [facility] Height 152.4 cm 07/16/2016 [facility] BMI Calculated 22.12 07/16/2016 [facility] Temperature Oral (F) 97.8 F 07/16/2016 [facility] Systolic (mm Hg) 132 07/16/2016 [facility] Diastolic (mm Hg) 91 07/16/2016 [facility] Heart Rate 90 07/16/2016 [facility] Respitory Rate 20 07/16/2016 [facility] Temperature Oral (F) 97.5 F 07/02/2016 [facility] Heart Rate 86 07/02/2016 [facility] Systolic (mm Hg) 109 07/02/2016 [facility] Diastolic (mm Hg) 76 07/02/2016 [facility] Respitory Rate 22 07/02/2016 [facility] Respitory Rate 23 07/02/2016 [facility] Heart Rate 93 07/02/2016 [facility] Systolic (mm Hg) 110 07/02/2016 [facility] Diastolic (mm Hg) 73 07/02/2016 [facility] Respitory Rate 23 07/02/2016 [facility] Systolic (mm Hg) 111 07/02/2016 [facility] Diastolic (mm Hg) 62 07/02/2016 [facility] Heart Rate 81 07/02/2016 [facility] Weight 50.955 07/02/2016 [facility] BMI Calculated 21.94 07/02/2016 [facility] Height 152.4 cm 07/02/2016 [facility] Temperature Oral (F) 97.8 F 07/02/2016 [facility] Temperature Oral (F) 98.6 F 04/30/2016 [facility] Heart Rate 64 04/30/2016 [facility] Systolic (mm Hg) 109 04/30/2016 [facility] Diastolic (mm Hg) 75 04/30/2016 [facility] Respitory Rate 16 04/30/2016 [facility] Respitory Rate 18 04/30/2016 [facility] Systolic (mm Hg) 113 04/30/2016 [facility] Diastolic (mm Hg) 76 04/30/2016 [facility] Temperature Oral (F) 98.1 F 04/30/2016 [facility] Heart Rate 64 04/30/2016 [facility] Respitory Rate 18 04/30/2016 [facility] Heart Rate 66 04/30/2016 [facility] Temperature Oral (F) 97.5 F 04/30/2016 [facility] Systolic (mm Hg) 121 04/30/2016 [facility] Diastolic (mm Hg) 84 04/30/2016 [facility] Height 152.4 cm 04/26/2016 [facility] Weight 50 04/26/2016 [facility] BMI Calculated 21.53 04/26/2016 [facility] Encounters Location Location Encounter Encounter Reason Attending ADM DC Status Source Details Type Number For Provider Date Date [facility] [id number] Francoyilotus 04/26 04/30 Luke Madsen /2015 [facility] Emergency [id number] Yunior 07/02 07/02 Luke Smiley Jr /2015 [facility] Emergency [id number] Cedric 07/16 07/17 Luke Rodriguez /2015 [facility] Inpatient [id number] Quratulain 02/11 02/16 Luke Mann /2016 [facility] Emergency [id number] Keven 05/03 05/03 Luke Toribio /2016 [facility] Emergency [id number] Yunior 09/25 09/25 Luke Smiley Jr /2018 [facility] Emergency [id number] Yunior 11/18 11/18 Luke Smiley Jr /2018 [facility] Emergency [id number] Keven 12/15 12/16 Luke Toribio /2018 [facility] Outpatient [id number] Bhavin 12/19 Active [facility] Out[facility] [id number] Bhavin 01/01 Active [facility] Outpatient [id number] Jasvir 01/01 [facility] Johnie [facility] Procedures Procedure Code Date Perfomer Comments Source Breast [id number] [facility] augmentation Assessment and Plan Assessment and Plan Date Source Extracted from:Title: Discharge Summary * 02/16/2017 [facility] Author: Delvis Lara MD Date: 02/15/17 Discharge Plan Discharge Summary Plan Discharge Status: stable. Discharge instructions given: to patient. Discharge disposition: discharge to home. Prescriptions: continue same medications. Education and Follow-up Counseled: patient. Extracted from:Title: Hospitalist Progress Note * Author: Alan Sage MD Date: 02/14/17 Impression and Plan Acute Alcoholic Hepatitis: no need for PO steroids or pentoxyphylline, will monitor LFT's, INR, continue gentle IV fluids. Diet advanced to soft. Cleared for discharge by GI in regards of alcoholic hepatitis. Acute alcohol withdrawal: Patient receiving chlordiazepoxide 25 mg 4 times a day, still has evidence of shaking in both hands compatible with acute alcohol withdrawal. Will increase chlordiazepoxide to 50 mg p.o. 4 times a day as needed to withdrawal symptoms. Anticipate discharge once alcohol withdrawal symptoms improve. Elevated LFT's secondary to above: Will monitor LFT's daily Probably alcoholic liver cirrhosis: No report of esophageal varices in EGD. Alcohol abuse:Continue PRN chlordiazepoxide and IV ativan. I had an extensive conversation with patient regarding need for alcohol cessation as it is associated with a very high risk of mortality Hypertension: BP within good range so far, will hold amlodipine for now Probable UTI: Continue IV ceftriaxone, will complete 3 days Depression: Continue antidepressant Disposition: Home for outpatient evaluation by GI once withdrawal symptoms improved. Extracted from:Title: Neurology Note * 04/30/2016 [facility] Author: Martinez Baron MD Date: 04/29/16 Impression and Plan IMPRESSION: 1. Alcohol withdrawal, resolved. 2. Hypokalemia, resolved. 3. Hypocalcemia, improving 4. Hypomagnesium, improving. 5. History of depression. RECOMMENDATIONS: 1. continue [place] with the same dose. 2. Continue to correct electrolytes. 3. Continue the current management 4. D/c plan per Dr. Madsen Extracted from:Title: Clinical Document Author: Osbaldo Varma MD Date: 04/26/[address] Madsen dictated Plan of Care No Data Provided for This Section Social History Social History Date Source Social History TypeResponse 08/28/2018 [facility] Substance Abuse Use: Past. Type: Heroin. Recreational Drug Route: Intravenous. IV drug use: Yes.1 Alcohol Current, Type Beer, Wine, Liquor. Frequency: Several times per day. Last use : today. Alcohol use interferes with work or home: Yes. Drinks more than intended: Yes. Others hurt by drinking: Yes. Re reji to change: Yes. Household alcohol concerns: Yes.2 Smoking Status Current every day smoker; Type: Cigarettes; Ready to change: No; Concerns about tobacco use in household: No; Lives with someone who smokes; Cigarette Smoking Last 365 Days Yes; Reg Smoking Cessation Counseling Yes3 entered on: 12/15/18 1no IV drug use in 14 yrs2pt drinks 1 liter of vodka every2 [id number] half a pack Family History No Data Provided for This Section Advance Directives No Data Provided for This Section Functional Status No Data Provided for This Section
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
--- OUTSIDE RECORDS SUMMARY | 2019-02-18 22:28 | XMS REPORT | Summary of Care ---
:1975 Author Organization [facility] Address [address] [place], [place] [address]- Encounter HQ Donna_migdalia(FIN) [id number] Date(s): 12/15/18 - 12/15/18 [facility] [address] [place] [address]- Encounter Diagnosis ETOH abuse (Discharge Diagnosis) - 12/15/18 Discharge Disposition: Home or Self Care Attending Physician: Keven Toribio MD Vital Signs Most recent to oldest 1 2 3 [Reference Range]: Height 157.48 cm (12/15/18 1:56 PM) Temperature Oral [96.4-99.1 97.5 DegF 98 DegF DegF] (12/15/18 7:00 PM) (12/15/18 1:56 PM) Blood Pressure [90-140/60-90 117/83 mmHg 106/75 mmHg 113/74 mmHg mmHg] (12/15/18 7:00 PM) (12/15/18 6:25 PM) (12/15/18 5:37 PM) Respiratory Rate [14-20 BRMIN] 20 BRMIN 19 BRMIN 20 BRMIN (12/15/18 7:00 PM) (12/15/18 6:25 PM) (12/15/18 5:37 PM) Peripheral Pulse Rate [60-100 115 bpm bpm] *HI* (12/15/18 1:56 PM) Weight 52.045 kg (12/15/18 1:56 PM) Body Mass Index 20.99 m2 (12/15/18 1:56 PM) Problem List Condition Effective Dates Status Health [...] Severity Status Demerol HCl Moderate Active Medications Ativan 1 mg, 0.5 mL, Route: IVP, Drug form: INJ, ONCE, Dosing Weight 52.045, kg, Priority: STAT, Start date: 12/15/18 16:32:00 CDT, Stop date: 12/15/18 16:32:00 CDT Notes: (Same as: Ativan) Start Date: 12/15/18 Stop Date: 12/15/18 Status: CompletedchlordiazePOXIDE 25 mg oral capsule (Librium) 50 mg, 2 cap, Route: PO, Drug form: CAP, ONCE, Dosing Weight 52.045, kg, Alcohol Withdrawal, Priority: STAT, Start date: 12/15/18 16:32:00 CDT, Stop date : 12/15/18 16:32:00 CDT Start Date: 12/15/18 Stop Date: 12/15/18 Status: CompletedchlordiazePOXIDE 25 mg oral capsule (Librium) 25 mg=1 cap, PO, TID, PRN Alcohol Withdrawal, X 3 day, # 9 cap, 0 Refill(s) Start Date: 12/15/18 Stop Date: 12/18/18 Status: OrderedNS (Bolus) IV 1,000 mL, 1,000 ml/hr, Infuse Over: 1 hr, Route: IV, 1,000, Drug form: INJ, ONCE , Priority: STAT, Dosing Weight 52.045 kg, Start date: 12/15/18 15:53:00 CDT, Stop date: 12/15/18 15:53:00 CDT Start Date: 12/15/18 Stop Date: 12/15/18 Status: CompletedSaline Flush 0.9% 10 mL, Route: IVP, Drug Form: INJ, Dosing Weight 51.818, kg, PRN, PRN Line Flush , Start date: 12/15/18 13:57:00 CDT, Duration: 1 day, Stop date: 12/16/18 13:56: 00 CDT Notes: (Same as: BD Posiflush) Start Date: 12/15/18 Stop Date: 12/16/18 Status: DiscontinuedZofran 4 mg, 2 mL, Route: IVP, Drug form: INJ, ONCE, Dosing Weight 52.045, kg, Priority : STAT, Start date: 12/15/18 15:53:00 CDT, Stop date: 12/15/18 15:53:00 CDT Notes: (Same as: Zofran) MEDICATION WASTE Product Size: 4 mgProduct Wasted: ___ mg Start Date: 12/15/18 Stop Date: 12/15/18 Status: Completed Results Most recent to oldest [Reference Range]: 1 Neutrophils # [1.5-8.1 K/CMM] 5.9 K/CMM (12/15/18 3:03 PM) Lymphocytes # [1.0-5.5 K/CMM] 4.0 K/CMM (12/15/18 3:03 PM) Monocytes # [0.0-0.8 K/CMM] 0.7 K/CMM (12/15/18 3:03 PM) Eosinophils # [0.0-0.5 K/CMM] 0.1 K/CMM (12/15/18 3:03 PM) Basophils # [0.0-0.2 K/CMM] 0.1 K/CMM (12/15/18 3:03 PM) eGFR 59 mL/min/1.73m2 1 *NA* (12/15/18 3:03 PM) A/G Ratio [0.7-1.6] 1.0 (12/15/18 3:03 PM) Albumin Lvl [3.5-5.0 g/dL] 3.6 g/dL (12/15/18 3:03 PM) Alk Phos [39-136 unit/L] 68 unit/L (12/15/18 3:03 PM) ALT [0-65 unit/L] 31 unit/L (12/15/18 3:03 PM) AGAP [10.0-20.0 mEq/L] 10.7 mEq/L (12/15/18 3:03 PM) AST [0-37 unit/L] 30 unit/L (12/15/18 3:03 PM) B/C Ratio [6-25] 12 (12/15/18 3:03 PM) Basophils [0.0-1.0 %] 1.3 % *HI* (12/15/18 3:03 PM) BUN [7-22 mg/dL] 14 mg/dL (12/15/18 3:03 PM) Calcium Lvl [8.5-10.5 mg/dL] 7.9 mg/dL *LOW* (12/15/18 3:03 PM) Total CK [12-191 unit/L] 140 unit/L (12/15/18 3:03 PM) Chloride Lvl [95-109 mEq/L] 106 mEq/L (12/15/18 3:03 PM) CO2 [24-32 mEq/L] 26 mEq/L (12/15/18 3:03 PM) Creatinine Lvl [0.50-1.40 mg/dL] 1.12 mg/dL (12/15/18 3:03 PM) Eosinophils [0.0-4.0 %] 0.8 % (12/15/18 3:03 PM) Etoh (%) .079 % *NA* (12/15/18 5:50 PM) Ethanol Lvl 79 mg/dL *NA* (12/15/18 5:50 PM) Globulin [2.7-4.2 g/dL] 3.5 g/dL (12/15/18 3:03 PM) Glucose Lvl [70-99 mg/dL] 115 mg/dL *HI* (12/15/18 3:03 PM) Hct [36.0-48.0 %] 44.4 % (12/15/18 3:03 PM) Hgb [12.0-16.0 g/dL] 14.8 g/dL (12/15/18 3:03 PM) Potassium Lvl [3.5-5.1 mEq/L] 3.7 mEq/L (12/15/18 3:03 PM) Lipase Lvl [73-393 unit/L] 115 unit/L (12/15/18 3:03 PM) Lymphocytes [20.0-40.0 %] 36.7 % (12/15/18 3:03 PM) MCH [27.0-31.0 pg] 31.1 pg *HI* (12/15/18 3:03 PM) MCHC [32.0-36.0 g/dL] 33.3 g/dL (12/15/18 3:03 PM) MCV [80.0-98.0 fL] 93.6 fL (12/15/18 3:03 PM) Monocytes [2.0-12.0 %] 6.3 % (12/15/18 3:03 PM) MPV [7.4-10.4 fL] 8.1 fL (12/15/18 3:03 PM) Sodium Lvl [135-145 mEq/L] 139 mEq/L (12/15/18 3:03 PM) Platelet [133-450 K/CMM] 306 K/CMM (12/15/18 3:03 PM) Segs [45.0-75.0 %] 54.9 % (12/15/18 3:03 PM) Total Protein [6.4-8.4 g/dL] 7.1 g/dL (12/15/18 3:03 PM) RBC [4.20-5.40 M/CMM] 4.74 M/CMM (12/15/18 3:03 PM) RDW [11.5-14.5 %] 17.5 % *HI* (12/15/18 3:03 PM) S Preg [Negative] Negative *NA* (12/15/18 3:03 PM) Bili Total [0.2-1.3 mg/dL] 0.5 mg/dL (12/15/18 3:03 PM) Troponin-I [0.00-0.40 ng/mL] <0.02 ng/mL (12/15/18 3:03 PM) WBC [3.7-10.4 K/CMM] 10.8 K/CMM *HI* (12/15/18 3:03 PM) 1Result Comment: The eGFR is calculated using [...] should be multiplied by the estimated BMI. Immunizations No data available for this section [...] yrs2pt drinks 1 liter of vodka every2 [id number] half a pack Assessment and Plan No data available for this section
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
--- OUTSIDE RECORDS SUMMARY | 2019-02-18 22:28 | XMS REPORT | Summary of Care ---
:1975 Author Organization [facility] Address [address] [place], [place] [address]- Encounter HQ Donna_migdalia(STEVE) [id number] Date(s): 02/11/17 - 02/15/17 [facility] [address] [place] [address]- Discharge Disposition: Home or Self Care Attending Physician: Marisa Mann MD Admitting Physician: Marisa Mann MD Vital Signs Most recent to oldest 1 2 3 [Reference Range]: Height 152.4 cm 152.4 cm (02/11/17 6:49 PM) (02/11/17 12:27 PM) Temperature Oral [96.4-99.1 98.6 DegF 98.2 DegF 98.6 DegF DegF] (02/15/17 2:43 PM) (02/15/17 11:40 AM) (02/15/17 6:42 AM) Blood Pressure [90-140/60-90 101/68 mmHg 135/60 mmHg 120/82 mmHg mmHg] (02/15/17 2:43 PM) (02/15/17 11:40 AM) (02/15/17 6:42 AM) Respiratory Rate [14-20 BRMIN] 18 BRMIN 18 BRMIN 17 BRMIN (02/15/17 2:43 PM) (02/15/17 11:40 AM) (02/15/17 6:42 AM) Peripheral Pulse Rate [60-100 70 bpm 94 bpm 98 bpm bpm] (02/15/17 2:43 PM) (02/15/17 11:40 AM) (02/15/17 6:42 AM) Weight 50.2 kg 49.261 kg (02/11/17 6:49 PM) (02/11/17 12:27 PM) Body Mass Index 21.61 m2 21.21 m2 (02/11/17 6:49 PM) (02/11/17 12:27 PM) Problem List Condition Effective Dates Status [...] Severity Status Demerol HCl Moderate Active Medications Benadryl 25 mg, 1 tab, Route: PO, Drug form: TAB, ONCE, Dosing Weight 50.2, kg, Start date: 02/15/17 11:29:00CDT, Stop date: 02/15/17 11:29:00 CDT Start Date: 02/15/17 Stop Date: 02/15/17 Status: CompletedBenadryl 25 mg, 1 tab, Route: PO, Drug form: TAB, TID, Dosing Weight 49.261, kg, PRN Itching, Start date: 02/11/17 17:49:00 CDT, Duration: 30 day, Stop date: 17:48:00 CDT Start Date: 02/11/17 Stop Date: 02/15/17 Status: DiscontinuedbusPIRone 7.5 mg oral tablet 7.5 mg=1 tab, PO, BID, # 14 tab, 0 Refill(s) Start Date: 02/15/17 Stop Date: 02/22/17 Status: Orderedcalcium gluconate 2,000 mg, 100 mL, Route: IVPB, Drug form: INJ, ONCE, Dosing Weight 49.261, kg, Start date: 02/11/17 15:03:00 CDT, Stop date: 02/11/17 15:03:00 CDT Notes: WASTE: F/P - Sink; E - Municipal Trash Bin Start Date: 02/11/17 Stop Date: 02/11/17 Status: CompletedcefTRIAXone + sodium chloride 0.9% INJ 100 mL 1 gm, Route: IVPB, [id number], Dosing Weight 50.2, kg, Start date: 02/14/17 10:00: 00 CDT, Duration: 3 day, Stop date: 02/16/17 10:00:00 CDT, ABX Indication: Urinary Tract Infection Notes: (Same As: Rocephin).Use with 100 mL NS and infuse over 30 min MEDICATION WASTE Product Size: 1000 mgProduct Wasted: ___ mg Start Date: 02/14/17 Stop Date: 02/15/17 Status: DiscontinuedcefTRIAXone + sodium chloride 0.9% INJ 100 mL 1 gm, Route: IVPB, [id number], Dosing Weight 49.261, kg, Start date: 02/11/17 18:00 :00 CDT, Duration: 5day, Stop date: 02/16/17 2:00:00 CDT, ABX Indication: Urinary Tract Infection Notes: (Same As: Rocephin).Use with 100 mL NS and infuse over 30 min MEDICATION WASTE Product Size: 1000 mgProduct Wasted: ___ mg Start Date: 02/11/17 Stop Date: 02/14/17 Status: DiscontinuedchlordiazePOXIDE 25 mg oral capsule (Librium) 25 mg, 1 cap, Route: PO, Drug form: CAP, Q6H, Dosing Weight 49.261, kg, Alcohol Withdrawal, Start date: 02/11/17 18:00:00 CDT, Duration: 30 day, Stop date: 12:00:00 CDT Start Date: 02/11/17 Stop Date: 02/14/17 Status: DiscontinuedchlordiazePOXIDE 25 mg oral capsule (Librium) 25 mg, 1 cap, Route: PO, Drug form: CAP, Q6H, Dosing Weight 50.2, kg, PRN Withdrawal, Alcohol Withdrawal, Start date: 02/12/17 22:05:00 CDT, Duration: 30 day, Stop date: 03/14/17 22:04:00 CDT Start Date: 02/12/17 Stop Date: 02/15/17 Status: DiscontinuedchlordiazePOXIDE 25 mg oral capsule (Librium) 50 mg, 2 cap, Route: PO, Drug form: CAP, Q6H, Dosing Weight 49.261, kg, Alcohol Withdrawal, Start date: 02/14/17 12:00:00 CDT, Duration: 30 day, Stop date: 6:00:00 CDT Start Date: 02/14/17 Stop Date: 02/15/17 Status: DiscontinuedchlordiazePOXIDE 25 mg oral capsule (Librium) 25 mg, 1 cap, Route: PO, Drug form: CAP, Q12H, Dosing Weight 50.2, kg, Alcohol Withdrawal, Priority:NOW, Start date: 02/15/17 11:58:00 CDT, Duration: 30 day, Stop date: 03/17/17 9:00:00 CDT Start Date: 02/15/17 Stop Date: 02/15/17 Status: DiscontinuedchlordiazePOXIDE 25 mg oral capsule (Librium) 25 mg=1 cap, PO, BID, PRN Alcohol Withdrawal, X 3 day, # 6 cap, 0 Refill(s) Start Date: 02/15/17 Stop Date: 02/18/17 Status: OrderedchlordiazePOXIDE 25 mg oral capsule (Librium) 25 mg, 1 cap, Route: PO, Drug form: CAP, BID, Dosing Weight 50.2, kg, PRN Withdrawal, Alcohol Withdrawal, Start date: 02/15/17 11:12:00 CDT, Duration: 30 day, Stop date: 03/17/17 11:11:00 CDT Start Date: 02/15/17 Stop Date: 02/15/17 Status: Discontinuedfolic acid 1 mg, 1 tab, Route: PO, Drug form: TAB, Daily, Dosing Weight 49.261, kg, Start date: 02/12/17 9:00:00 CDT, Duration: 5 day, Stop date: 02/16/17 9:00:00 CDT Notes: (Same as: Folvite) Start Date: 02/12/17 Stop Date: 02/15/17 Status: DiscontinuedhydrALAZINE 10 mg, 0.5 mL, Route: IVP, Drug form: INJ, Q4H, Dosing Weight 49.261, kg, PRN Elevated BP, Start date: 02/11/17 17:49:00 CDT, Duration: 30 day, Stop date: 17:48:00 CDT, SBP > 160, DBP >110 Notes: (Same as: Apresoline)Push over 5 minutes Start Date: 02/11/17 Stop Date: 02/15/17 Status: Discontinuedhydrocortisone sodium succinate INJ (for IV use) 50 mg, 1 mL, Route: IVP, Drug form: PDR/INJ, ONCE, Dosing Weight 50.2, kg, PRBC transfusion premedication, Priority: STAT, Start date: 02/15/17 11:29:00 CDT, Stop date: 02/15/17 11:29:00 CDT Notes: (Same as: Ale) Start Date: 02/15/17 Stop Date: 02/15/17 Status: CompletedK-Dur 20 40 mEq, 2 tab, Route: PO, Drug form: ERTAB, Q4H, Dosing Weight 50.2, kg, Priority: NOW, Start date: 02/15/17 10:00:00 CDT, Duration: 2 doses or times, Stop date: 02/15/17 14:00:00 CDT Notes: (Same as: K-Dur 20)"Do Not Crush" With food and full glass of water Start Date: 02/15/17 Stop Date: 02/15/17 Status: CompletedLORazepam 2 mg, 1 mL, Route: IVP, Drug form: INJ, Q2H, Dosing Weight 49.261, kg, PRN Other -See Comment, CIWA Score > 20, Start date: 02/11/17 17:47:00 CDT, Duration : 30 day, Stop date: 03/13/17 17:46:00 CDT Notes: (Same as: Ativan) Start Date: 02/11/17 Stop Date: 02/15/17 Status: DiscontinuedLORazepam 1 mg, 0.5 mL, Route: IVP, Drug form: INJ, Q2H, Dosing Weight 49.261, kg, PRN Other -See Comment, CIWA Score 15-20, Start date: 02/11/17 17:47:00 CDT, Duration: 30 day, Stop date: 03/13/17 17:46:00 CDT Notes: (Same as: Ativan) Start Date: 02/11/17 Stop Date: 02/15/17 Status: DiscontinuedLORazepam 0.5 mg, 0.25 mL, Route: IVP, Drug form: INJ, Q2H, Dosing Weight 49.261, kg, PRN Other -See Comment, CIWA Score 8 -14, Start date: 02/11/17 17:47:00 CDT, Duration: 30 day, Stop date: 03/13/17 17:46:00 CDT Notes: (Same as: Ativan) Start Date: 02/11/17 Stop Date: 02/15/17 Status: Discontinuedmagnesium oxide 800 mg, 2 tab, Route: PO, Drug form: TAB, BID, Dosing Weight 50.2, kg, Priority : NOW, Start date: 02/15/17 11:15:00 CDT, Duration: 30 day, Stop date: 03/17/17 9:00:00 CDT Notes: (Same as: Mag-Ox 400)Magnesium oxide [id number] elemental magnesiumDose= ____mg magnesium oxide (___mg elemental magnesium) Start Date: 02/15/17 Stop Date: 02/15/17 Status: Discontinuedmorphine Sulfate 2 mg, 1 mL, Route: IVP, Drug form: INJ, ONCE, Dosing Weight 50.2, kg, Start date : 02/11/17 20:43:00 CDT, Stop date: 02/11/17 20:43:00 CDT Notes: (Same as:MORPhine Sulfate) Start Date: 02/11/17 Stop Date: 02/12/17 Status: CompletedMultiple Vitamins with Minerals oral tablet 1 tab, PO, Daily, # 7 tab, 0 Refill(s) Start Date: 02/15/17 Stop Date: 02/22/17 Status: Orderedmultivitamin 1 tab, Route: PO, Dosing Weight 49.261, kg, Daily, Start date: 02/12/17 9:00:00 CDT, Duration: 5 day, Stop date: 02/16/17 9:00:00 CDT Start Date: 02/12/17 Stop Date: 02/11/17 Status: Deletedmultivitamin with minerals 1 tab, Route: PO, Drug Form: TAB, Daily, Start date: 02/12/17 9:00:00 CDT, Duration: 5 day, Stop date: 02/16/17 9:00:00 CDT Notes: Give with food.(Same As: Stress 600 with Zinc)WASTE: F/P - Black; E - Municipal Trash Bin Start Date: 02/12/17 Stop Date: 02/15/17 Status: DiscontinuedNicoderm C-Q Clear 21 mg/24 hr transdermal film, extended release =1 patch, TOP, Daily, X 7 day, # 7 patch, 0 Refill(s) Start Date: 02/15/17 Stop Date: 02/22/17 Status: Orderednicotine 21 mg, 1 patch, Route: TOP, Drug form: ERFILM, Daily, Dosing Weight 50.2, kg, Start date: 02/11/17 21:00:00 CDT, Duration: 30 day, Stop date: 03/12/17 21:00: 00 CDT Notes: (Same as: Habitrol)"Remove old patch before application of new patch "WASTE: F/P - P Waste Black; E - P Waste Black Start Date: 02/11/17 Stop Date: 02/15/17 Status: DiscontinuedNorco 10/325 oral tablet 1 tab, Route: PO, Drug Form: TAB, Dosing Weight 49.261, kg, Q4H, PRN Pain Score 4-6, Start date: 02/11/17 17:49:00 CDT, Duration: 30 day, Stop date: 03/13/17 17 :48:00 CDT Notes: Do not exceed 4gm/day of acetaminophen. (Same as: Wisner 325/10) Start Date: 02/11/17 Stop Date: 02/15/17 Status: DiscontinuedNorco 5/325 oral tablet 1 tab, Route: PO, Drug Form: TAB, Dosing Weight 50.2, kg, Q6H, PRN Pain Score 4- 6, Start date: 02/15/17 11:14:00 CDT, Duration: 30 day, Stop date: 03/17/17 11: 13:00 CDT Notes: (Same as: Wisner 325/5) Do not exceed 4gm/day of acetaminophen. Start Date: 02/15/17 Stop Date: 02/15/17 Status: DiscontinuedNS (Bolus) IV 1,000 mL, 1,000 ml/hr, Infuse Over: 1 hr, Route: IV, 1,000, Drug form: INJ, ONCE , Priority: STAT, Dosing Weight 49.261 kg, Start date: 02/11/17 13:54:00 CDT, Duration: 1 doses or times, Stop date: 02/11/17 13:54:00 CDT Start Date: 02/11/17 Stop Date: 02/13/17 Status: CompletedNS (Bolus) IV 1,000 mL, 1,000 ml/hr, Infuse Over: 1 hr, Route: IV, ONCE, Priority: STAT, Dosing Weight 49.261 kg, Start date: 02/11/17 13:38:00 CDT, Duration: 1 doses or times, Stop date: 02/11/17 13:38:00 CDT Start Date: 02/11/17 Stop Date: 02/11/17 Status: DiscontinuedNS (Bolus) IV 1,000 mL, 1,000 ml/hr, Infuse Over: 1 hr, Route: IV, 1,000, Drug form: INJ, ONCE , Priority: STAT, Dosing Weight 49.261 kg, Start date: 02/11/17 17:10:00 CDT, Duration: 1 doses or times, Stop date: 02/11/17 17:10:00 CDT Start Date: 02/11/17 Stop Date: 02/13/17 Status: CompletedNS + KCL 20mEq/L 1000ml (Premix) 1,000 mL 1,000 mL, Rate: 100 ml/hr, Infuse over: 10 hr, Route: IV, Dosing Weight 49.261 kg, Total Volume: 1,000, Start date: 02/11/17 17:49:00 CDT, Duration: 30 day, Stop date: 03/13/17 17:48:00 CDT Notes: PREMIX IV - Do Not AlterWASTE: F/P - Sink; E - Municipal Trash Bin Start Date: 02/11/17 Stop Date: 02/12/17 Status: DiscontinuedOmnipaque 300 injectable solution 100 mL, Route: IVP, Drug Form: SOLN, Dosing Weight 49.261, kg, ONCE, GFR > 45 mL /min, STAT, Start date: 02/11/17 15:22:00 CDT, Stop date: 02/11/17 15:22:00 CDT Notes: (Same as:Omnipaque 300).WASTE: F/P - Black; E - Municipal Trash Bin Start Date: 02/11/17 Stop Date: 02/11/17 Status: Completedondansetron 4 mg, 2 mL, Route: IVP, Drug form: INJ, Q8H, Dosing Weight 49.261, kg, PRN Nausea & Vomiting, Start date: 02/11/17 17:49:00 CDT, Duration: 30 day, Stop date: 03/13/17 17:48:00 CDT Notes: (Same as: Bonitafran) MEDICATION WASTE Product Size: 4 mgProduct Wasted: ___ mg Start Date: 02/11/17 Stop Date: 02/15/17 Status: Discontinuedondansetron 8 mg oral tablet 8 mg=1 tab, PO, BID, X 5 day, # 10 tab, 0 Refill(s) Start Date: 02/15/17 Stop Date: 02/20/17 Status: Orderedpantoprazole 40 mg, 1 tab, Route: PO, Drug form: ECTAB, BID-Before Meals, Dosing Weight 49.261, kg, Start date: 02/12/17 7:30:00 CDT, Duration: 30 day, Stop date: 03/13 16:30:00 CDT Notes: Tablet should not be chewed or crushed.(Same as: Protonix) Start Date: 02/12/17 Stop Date: 02/15/17 Status: Discontinuedpotassium chloride 10 mEq, 100 mL, Route: IVPB, Drug form: INJ, Q1H, Dosing Weight 49.261, kg, Total Dose=30 meq, Startdate: 02/11/17 16:00:00 CDT, Duration: 3 doses or times , Stop date: 02/11/17 18:00:00 CDT, Peripheral Line Notes: Infuse at a rate of 10 mEq/hr.(Same as: KCL) Start Date: 02/11/17 Stop Date: 02/11/17 Status: Completedpotassium chloride 20 mEq/15 mL oral liquid 40 mEq, 2 pkt, Route: PO, Drug form: PDR/REC, ONCE, Dosing Weight 49.261, kg, Priority: STAT, Start date: 02/11/17 15:04:00 CDT, Stop date: 02/11/17 15:04:00 CDT Notes: (Same as: Neha) With food and full glass of water Start Date: 02/11/17 Stop Date: 02/11/17 Status: CompletedProtonix 40 mg, Route: PO, Drug form: ECTAB, Daily, Dosing Weight 49.261, kg, Start date : 02/12/17 9:00:00 CDT, Duration: 30 day, Stop date: 03/13/17 9:00:00 CDT Start Date: 02/12/17 Stop Date: 02/11/17 Status: CanceledReglan 5 mg, 1 mL, Route: IVP, Drug form: INJ, Q8H, Dosing Weight 49.261, kg, PRN as needed for nausea/vomiting, Start date: 02/15/17 11:14:00 CDT, Duration: 30 day , Stop date: 03/17/17 11:13:00 CDT Notes: (Same as: Reglan) Start Date: 02/15/17 Stop Date: 02/15/17 Status: DiscontinuedReglan 10 mg, 2 mL, Route: IVP, Drug form: INJ, Q8H, Dosing Weight 49.261, kg, PRN as needed for nausea/vomiting, Priority: STAT, Start date: 02/11/17 17:49:00 CDT, Duration: 30 day, Stop date: 03/13/17 17:48:00 CDT Notes: (Same as: Reglan) Start Date: 02/11/17 Stop Date: 02/15/17 Status: DiscontinuedRestoril 15 mg, 1 cap, Route: PO, Drug form: CAP, Bedtime, Dosing Weight 49.261, kg, PRN Sleep, Start date: 02/11/17 17:49:00 CDT, Duration: 30 day, Stop date: 03/13/17 17:48:00 CDT Notes: (Same As: Restoril) Start Date: 02/11/17 Stop Date: 02/15/17 Status: DiscontinuedSaline Flush 0.9% 10 ml, Route: IVP, Drug Form: INJ, Dosing Weight 49.261, kg, PRN, PRN Line Flush , Start date: 02/11/17 17:49:00 CDT, Duration: 30 day, Stop date: 03/13/17 17:48 :00 CDT Notes: (Same as: BD Posiflush) Start Date: 02/11/17 Stop Date: 02/15/17 Status: DiscontinuedSaline Flush 0.9% 10 mL, Route: IVP, Drug Form: INJ, Dosing Weight 49.261, kg, PRN, PRN Line Flush , Start date: 02/11/17 13:26:00 CDT, Duration: 1 day, Stop date: 02/12/17 13:25: 00 CDT Notes: (Same as: BD Posiflush) Start Date: 02/11/17 Stop Date: 02/12/17 Status: Completedsertraline 50 mg, 1 tab, Route: PO, Drug form: TAB, Bedtime, Dosing Weight 50.2, kg, Start date: 02/13/17 21:00:00 CDT, Duration: 30 day, Stop date: 03/14/17 21:00:00 CDT Notes: (Same as: Zoloft) Start Date: 02/13/17 Stop Date: 02/15/17 Status: Discontinuedsertraline 50 mg oral tablet 50 mg=1 tab, PO, Bedtime, # 10 tab, 0 Refill(s) Start Date: 02/15/17 Stop Date: 02/25/17 Status: OrderedSodium Chloride 0.9% (Bolus) IV 1,000 mL, 2,000 ml/hr, Infuse Over: 30 minutes, Route: IV, 1,000, Drug form: INJ , ONCE, Priority: STAT, Dosing Weight 49.261 kg, Start date: 02/11/17 13:26:00 CDT, Duration: 1 doses or times, Stop date: 02/11/17 13:26:00 CDT Start Date: 02/11/17 Stop Date: 02/11/17 Status: Completedsodium chloride 0.9% 1000 ml INJ 1,000 mL 1,000 mL, Rate: 40 ml/hr, Infuse over: 25 hr, Route: IV, Dosing Weight 50.2 kg, Total Volume: 1,000,Start date: 02/13/17 9:11:00 CDT, Duration: 30 day, Stop date: 03/15/17 9:10:00 CDT Start Date: 02/13/17 Stop Date: 02/14/17 Status: Discontinuedsodium chloride 0.9% 1000 ml INJ 1,000 mL + M.V.I.-12 10 mL + folic acid IV 1 mg + thiamine IV 100 1,000 mL, Rate: 100 ml/hr, Infuse over: 10.1 hr, Route: IV, Dosing Weight 49.261 kg, Total Volume: 1,011.2, Start date: 02/11/17 17:47:00 CDT, Duration: 1 doses or times, Stop date: 02/12/17 3:52:00 CDT Start Date: 02/11/17 Stop Date: 02/11/17 Status: Completedsodium chloride 0.9% 1000 ml INJ 1,000 mL + M.V.I.-12 10 mL Daily + folic acid IV 1 mg Daily + thia 1,000 mL, Rate: 100 ml/hr, Infuse over: 10.1 hr, Route: IV, Dosing Weight 50.2 kg, Total Volume: 1,011.2, Start date: 02/12/17 16:50:00 CDT, Duration: 3 day, Stop date: 02/15/17 16:49:00 CDT Start Date: 02/12/17 Stop Date: 02/15/17 Status: Discontinuedsodium chloride 0.9% INJ 250 mL 250 mL, Rate: 75 ml/hr, Infuse over: 3.3 hr, Route: IV, Dosing Weight 50.2 kg, Total Volume: 250, Priority: STAT, Start date: 02/15/17 13:41:00 CDT, Duration: 30 day, Stop date: 03/17/17 13:40:00 CDT Start Date: 02/15/17 Stop Date: 02/15/17 Status: Discontinuedthiamine 100 mg, 1 tab, Route: PO, Drug form: TAB, Daily, Dosing Weight 49.261, kg, Start date: 02/12/17 9:00:00 CDT, Duration: 5 day, Stop date: 02/16/17 9:00:00 CDT Notes: (Same As: Vitamin B1) Start Date: 02/12/17 Stop Date: 02/15/17 Status: DiscontinuedTylenol 325 mg, 1 tab, Route: PO, Drug form: TAB, ONCE, Dosing Weight 50.2, kg, Start date: 02/15/17 11:30:00 CDT, Stop date: 02/15/17 11:30:00 CDT Notes: Do not exceed 4 gm/day. (Same as: Tylenol) Start Date: 02/15/17 Stop Date: 02/15/17 Status: CompletedTylenol 650 mg, 2 tab, Route: PO, Drug form: TAB, QID, Dosing Weight 49.261, kg, PRN Pain 1-3/Temp > 100.4 F, Start date: 02/11/17 17:49:00 CDT, Duration: 30 day, Stop date: 03/13/17 17:48:00 CDT Notes: Do not exceed 4 gm/day. (Same as: Tylenol) Start Date: 02/11/17 Stop Date: 02/15/17 Status: DiscontinuedValium 5 mg, Route: IVP, Drug form: INJ, ONCE, Dosing Weight 49.261, kg, Priority: STAT , Start date: 02/11/17 13:39:00 CDT, Stop date: 02/11/17 13:39:00 CDT Start Date: 02/11/17 Stop Date: 02/11/17 Status: Completed Results BLOOD BANK RESULTS Most recent to oldest [Reference Range]: 1 2 3 ABO/Rh O POS O POS *Unknown* *Unknown* (02/15/17 12:32 PM) (02/11/17 7:03 PM) Antibody Scrn Negative Negative (02/15/17 12:32 PM) (02/11/17 7:03 PM) RBC product Product available 1 (02/15/17 11:10 AM) 1Result Comment: 02/15/2017 13:38 [id number] Called result to NDAPANDA at 02/15/2017 13:38 by MML. Read Back Ok.ELECTROLYTES Most recent to oldest 1 2 3 [Reference Range]: Sodium Lvl [135-145 mEq/L] 142 mEq/L 141 mEq/L 137 mEq/L (02/15/17 4:19 AM) (02/14/17 6:00 AM) (02/12/17 4:19 AM) Potassium Lvl [3.5-5.1 2.9 mEq/L 1 3.2 mEq/L 3.8 mEq/L mEq/L] *CRIT* *LOW* (02/12/17 4:19 AM) (02/15/17 4:19 AM) (02/14/17 6:00 AM) Chloride Lvl [95-109 mEq/L] 108 mEq/L 108 mEq/L 102 mEq/L (02/15/17 4:19 AM) (02/14/17 6:00 AM) (02/12/17 4:19 AM) CO2 [24-32 mEq/L] 24 mEq/L 23 mEq/L 21 mEq/L (02/15/17 4:19 AM) *LOW* *LOW* (02/14/17 6:00 AM) (02/12/17 4:19 AM) AGAP [10.0-20.0 mEq/L] 12.9 mEq/L 13.2 mEq/L 17.8 mEq/L (02/15/17 4:19 AM) (02/14/17 6:00 AM) (02/12/17 4:19 AM) 1Result Comment: Critical Result(s) called to Janett Valverde RN at 2016 05:51 by RA. Read back OK.CHEM PANEL Most recent to oldest 1 2 3 [Reference Range]: Creatinine Lvl [0.50-1.40 0.55 mg/dL 0.60 mg/dL 0.51 mg/dL mg/dL] (02/15/17 4:19 AM) (02/14/17 6:00 AM) (02/12/17 4:19 AM) eGFR 115 mL/min/1.73m2 1 112 mL/min/1.73m2 2 118 mL/min/1.73m2 3 *NA* *NA* *NA* (02/15/17 4:19 AM) (02/14/17 6:00 AM) (02/12/17 4:19 AM) BUN [7-22 mg/dL] 3 mg/dL 3 mg/dL 3 mg/dL *LOW* *LOW* *LOW* (02/15/17 4:19 AM) (02/14/17 6:00 AM) (02/12/17 4:19 AM) B/C Ratio [6-25] 5 5 15 *LOW* *LOW* (02/11/17 1:45 PM) (02/15/17 4:19 AM) (02/14/17 6:00 AM) Glucose Lvl [70-99 mg/dL] 96 mg/dL 115 mg/dL 87 mg/dL (02/15/17 4:19 AM) *HI* (02/12/17 4:19 AM) (02/14/17 6:00 AM) Total Protein [6.4-8.4 4.8 g/dL 4.9 g/dL 4.9 g/dL g/dL] *LOW* *LOW* *LOW* (02/15/17 4:19 AM) (02/14/17 6:00 AM) (02/12/17 4:19 AM) Albumin Lvl [3.5-5.0 g/dL] 1.9 g/dL 2.0 g/dL 1.9 g/dL *LOW* *LOW* *LOW* (02/15/17 4:19 AM) (02/14/17 6:00 AM) (02/12/17 4:19 AM) Globulin [2.7-4.2 g/dL] 2.9 g/dL 2.9 g/dL 3.0 g/dL (02/15/17 4:19 AM) (02/14/17 6:00 AM) (02/12/17 4:19 AM) A/G Ratio [0.7-1.6] 0.7 0.7 0.6 (02/15/17 4:19 AM) (02/14/17 6:00 AM) *LOW* (02/12/17 4:19 AM) Calcium Lvl [8.5-10.5 7.8 mg/dL 7.9 mg/dL 8.0 mg/dL mg/dL] *LOW* *LOW* *LOW* (02/15/17 4:19 AM) (02/14/17 6:00 AM) (02/12/17 4:19 AM) Phosphorus [2.5-4.5 mg/dL] 1.5 mg/dL 4 *CRIT* (02/11/17 2:20 PM) Magnesium Lvl [1.8-2.4 1.5 mg/dL 1.1 mg/dL mg/dL] *LOW* *LOW* (02/15/17 4:19 AM) (02/11/17 2:20 PM) ALT [0-65 unit/L] 90 unit/L 113 unit/L 177 unit/L *HI* *HI* *HI* (02/15/17 4:19 AM) (02/14/17 6:00 AM) (02/12/17 4:19 AM) AST [0-37 unit/L] 163 unit/L 249 unit/L 532 unit/L *HI* *HI* *HI* (02/15/17 4:19 AM) (02/14/17 6:00 AM) (02/12/17 4:19 AM) Alk Phos [39-136 unit/L] 301 unit/L 354 unit/L 349 unit/L *HI* *HI* *HI* (02/15/17 4:19 AM) (02/14/17 6:00 AM) (02/12/17 4:19 AM) LDH [98-192 unit/L] 455 unit/L *HI* (02/11/17 7:03 PM) Bili Total [0.2-1.3 mg/dL] 13.4 mg/dL 14.0 mg/dL 8.9 mg/dL *HI* *HI* *HI* (02/15/17 4:19 AM) (02/14/17 6:00 AM) (02/12/17 4:19 AM) Bili Direct [0.0-0.3 mg/dL] 6.6 mg/dL 6.8 mg/dL *HI* *HI* (02/12/17 4:19 AM) (02/11/17 7:03 PM) Bili Indirect [0.0-1.0 2.3 mg/dL 2.0 mg/dL mg/dL] *HI* *HI* (02/12/17 4:19 AM) (02/11/17 7:03 PM) Lipase Lvl [73-393 unit/L] 404 unit/L 116 unit/L 144 unit/L *HI* (02/12/17 4:19 AM) (02/11/17 1:45 PM) (02/14/17 6:00 AM) Lactic Acid Lvl [0.5-2.2 1.9 mMol/L mMol/L] *NA* (02/12/17 4:19 AM) 1Result Comment: The eGFR is calculated [...] eGFR should be multiplied by the estimated BMI.2Result Comment: The eGFR is calculated using the CKD-EPI formula. In most young, healthy individualsthe eGFR will be >90 mL/ min/1.73m2. The eGFR declines with age. An eGFR [...] eGFR should be multiplied by the estimated BMI.3Result Comment: The eGFR is calculated using the CKD-EPI formula. In most young, healthy individualsthe eGFR will be >90 mL/ min/1.73m2. The eGFR declines with age. An eGFR [...] eGFR should be multiplied by the estimated BMI.4Result Comment: Critical Result(s) called to Duane Trinidad at 02/11/2017 18:56 by BW. Read back OK.CARDIAC ENZYMES Most recent to oldest [Reference Range]: 1 2 3 Total CK [12-191 unit/L] 25 unit/L (02/11/17 1:45 PM) CK MB [0.5-3.6 ng/mL] <1.0 ng/mL (02/11/17 1:45 PM) CK MB Index [0.0-2.5] <4.0 *HI* (02/11/17 1:45 PM) Troponin-I [0.00-0.40 ng/mL] <0.02 ng/mL (02/11/17 1:45 PM) BNP [<=100 pg/mL] 87 pg/mL (02/12/17 4:19 AM) LIPIDS Most recent to oldest [Reference Range]: 1 2 3 CHD Risk [3.90-5.80] 28.23 *HI* (02/11/17 2:20 PM) Chol [<=199 mg/dL] 367 mg/dL *HI* (02/11/17 2:20 PM) Trig [<=149 mg/dL] 1067 mg/dL *HI* (02/11/17 2:20 PM) HDL [>=61 mg/dL] 13 mg/dL *LOW* (02/11/17 2:20 PM) LDL (Calculated) [<=99 mg/dL] See Note mg/dL 1 *NA* (02/11/17 2:20 PM) VLDL See Note 2 *NA* (02/11/17 2:20 PM) 1Result Comment: LDL cholesterol cannot be calculated due to very high triglycerides (>400 mg/dL). Recommend Direct LDL if clinically indicated.2Result Comment: VLDL - Cholesterol level cannot be accurately calculated due to very high triglycerides (>400 mg/dL).ANEMIA STUDY Most recent to oldest [Reference Range]: 1 2 3 Iron [30-160 ug/dl] 138 ug/dl (02/11/17 7:03 PM) Ferritin Lvl [5-204 ng/mL] 1673 ng/mL *HI* (02/11/17 7:03 PM) % Satur Fe [12-57 %] 109 % *HI* (02/11/17 7:03 PM) UIBC [110-370 ug/dl] -11 ug/dl *LOW* (02/11/17 7:03 PM) Vitamin B12 Lvl [254-1320 pg/mL] 1988 pg/mL *HI* (02/11/17 7:03 PM) Folate Lvl [>=3.0 ng/mL] 5.1 ng/mL (02/11/17 7:03 PM) RBC Folate [280-791 ng/mL] 1209 ng/mL *HI* (02/11/17 7:03 PM) TIBC [228-428 ug/dl] 127 ug/dl *LOW* (02/11/17 7:03 PM) AMINO ACID Most recent to oldest [Reference Range]: 1 2 3 MMA Qnt [0-378 nMol/L] 108 nMol/L 1 *NA* (02/11/17 7:03 PM) 1Result Comment: Performed At: [id number] [id number] [place] Peterson Castañeda MD Ph:[phone] SCREEN Most recent to oldest [Reference Range]: 1 2 3 U Amph Scr [Negative] Negative *NA* (02/12/17 12:26 AM) U Annel Scr [Negative] Negative *NA* (02/12/17 12:26 AM) U Benzodia Scr [Negative] Positive *ABN* (02/12/17 12:26 AM) U Cocaine Scr [Negative] Negative *NA* (02/12/17 12:26 AM) U Opiate Scr [Negative] Positive *ABN* (02/12/17 12:26 AM) U Phencyc Scr [Negative] Negative *NA* (02/12/17 12:26 AM) U Cannab Scr [Negative] Negative *NA* (02/12/17 12:26 AM) UDS Note See Note (02/12/17 12:26 AM) TOXICOLOGY Most recent to oldest [Reference Range]: 1 2 3 Etoh (%) .188 % *NA* (02/11/17 3:31 PM) Ethanol Lvl 188 mg/dL *NA* (02/11/17 3:31 PM) ENDOCRINOLOGY Most recent to oldest [Reference Range]: 1 2 3 S Preg [Negative] Negative *NA* (02/11/17 2:20 PM) URINE AND STOOL Most recent to oldest [Reference Range]: 1 2 3 UA Turbidity [Clear] Slight *ABN* (02/11/17 2:20 PM) UA Color [Yellow] Marjan *ABN* (02/11/17 2:20 PM) UA pH [5.0-8.0] 7.0 (02/11/17 2:20 PM) UA Spec Grav [<=1.030] 1.002 (02/11/17 2:20 PM) UA Glucose [Negative mg/dL] Negative mg/dL *NA* (02/11/17 2:20 PM) UA Blood [Negative] Small *ABN* (02/11/17 2:20 PM) UA Ketones [Negative mg/dL] Negative mg/dL *NA* (02/11/17 2:20 PM) UA Protein [Negative mg/dL] Negative mg/dL (02/11/17 2:20 PM) UA Urobilinogen [0.1-1.0 mg/dL] <=1.0 mg/dL *NA* (02/11/17 2:20 PM) UA Bili [Negative] Negative *NA* (02/11/17 2:20 PM) UA Leuk Est [Negative] Moderate *ABN* (02/11/17 2:20 PM) UA Nitrite [Negative] Negative (02/11/17 2:20 PM) UA WBC [0-5 /HPF] 6 /HPF *HI* (02/11/17 2:20 PM) UA RBC [0-2 /HPF] 2 /HPF (02/11/17 2:20 PM) UA Bacteria [None Seen /HPF] Occasional /HPF *NA* (02/11/17 2:20 PM) UA Sq Epi [Few /LPF] Few /LPF *NA* (02/11/17 2:20 PM) UA Amorph Clover [None Seen /HPF] Occasional /HPF *NA* (02/11/17 2:20 PM) Occult Bld Stl [Negative] Negative (02/11/17 3:27 PM) IMMUNOLOGY Most recent to oldest [Reference Range]: 1 2 3 Haptoglobin [16-200 mg/dL] 80 mg/dL (02/11/17 7:03 PM) Homocyst Tot [3.7-13.9 uMol/L] 19.6 uMol/L *HI* (02/11/17 7:03 PM) Hep Bs Ag [Negative] Negative *NA* (02/11/17 7:03 PM) Hep B Core IgM [Negative] Negative *NA* (02/11/17 7:03 PM) Hep A IgM [Negative] Negative *NA* (02/11/17 7:03 PM) Hep C Ab Positive *ABN* (02/11/17 7:03 PM) HEMATOLOGY Most recent to oldest 1 2 3 [Reference Range]: WBC [3.7-10.4 K/CMM] 8.6 K/CMM 7.8 K/CMM 7.1 K/CMM (02/15/17 4:19 AM) (02/14/17 6:00 AM) (02/12/17 4:19 AM) RBC [4.20-5.40 M/CMM] 1.77 M/CMM 1.83 M/CMM 2.00 M/CMM *LOW* *LOW* *LOW* (02/15/17 4:19 AM) (02/14/17 6:00 AM) (02/12/17 4:19 AM) Hgb [12.0-16.0 g/dL] 6.9 g/dL 1 7.1 g/dL 7.6 g/dL *CRIT* *LOW* *LOW* (02/15/17 4:19 AM) (02/14/17 6:00 AM) (02/12/17 4:19 AM) Hct [36.0-48.0 %] 20.4 % 20.6 % 22.0 % *LOW* *LOW* *LOW* (02/15/17 4:19 AM) (02/14/17 6:00 AM) (02/12/17 4:19 AM) MCV [80.0-98.0 fL] 115.2 fL 113.0 fL 110.2 fL *HI* *HI* *HI* (02/15/17 4:19 AM) (02/14/17 6:00 AM) (02/12/17 4:19 AM) MCH [27.0-31.0 pg] 38.8 pg 38.9 pg 38.1 pg *HI* *HI* *HI* (02/15/17 4:19 AM) (02/14/17 6:00 AM) (02/12/17 4:19 AM) MCHC [32.0-36.0 g/dL] 33.6 g/dL 34.4 g/dL 34.5 g/dL (02/15/17 4:19 AM) (02/14/17 6:00 AM) (02/12/17 4:19 AM) RDW [11.5-14.5 %] 27.4 % 25.4 % 23.8 % *HI* *HI* *HI* (02/15/17 4:19 AM) (02/14/17 6:00 AM) (02/12/17 4:19 AM) Platelet [133-450 K/CMM] 135 K/CMM 138 K/CMM 135 K/CMM (02/15/17 4:19 AM) (02/14/17 6:00 AM) (02/12/17 4:19 AM) MPV [7.4-10.4 fL] 8.9 fL 8.5 fL 9.2 fL (02/15/17 4:19 AM) (02/14/17 6:00 AM) (02/12/17 4:19 AM) Segs [45.0-75.0 %] 63.0 % 55.2 % 40.2 % (02/15/17 4:19 AM) (02/14/17 6:00 AM) *LOW* (02/12/17 4:19 AM) Bands [0.0-11.0 %] 5.0 % (02/15/17 4:19 AM) Lymphocytes [20.0-40.0 %] 26.0 % 31.7 % 52.4 % (02/15/17 4:19 AM) (02/14/17 6:00 AM) *HI* (02/12/17 4:19 AM) Atypical Lymphs [<=0.0 %] 0.0 % (02/15/17 4:19 AM) Monocytes [2.0-12.0 %] 3.0 % 10.0 % 5.2 % (02/15/17 4:19 AM) (02/14/17 6:00 AM) (02/12/17 4:19 AM) Eosinophils [0.0-4.0 %] 1.6 % 1.1 % 0.8 % (02/14/17 6:00 AM) (02/12/17 4:19 AM) (02/11/17 1:45 PM) Basophils [0.0-1.0 %] 1.5 % 0.8 % *HI* (02/11/17 1:45 PM) (02/14/17 6:00 AM) Metamyelocytes [0.0-1.0 %] 2.0 % *HI* (02/15/17 4:19 AM) Myelocytes [<=0.0 %] 1.0 % *HI* (02/15/17 4:19 AM) Segs-Bands # [1.5-8.1 5.8 K/CMM 4.3 K/CMM 2.9 K/CMM K/CMM] (02/15/17 4:19 AM) (02/14/17 6:00 AM) (02/12/17 4:19 AM) Lymphocytes # [1.0-5.5 2.2 K/CMM 2.5 K/CMM 3.7 K/CMM K/CMM] (02/15/17 4:19 AM) (02/14/17 6:00 AM) (02/12/17 4:19 AM) Monocytes # [0.0-0.8 0.3 K/CMM 0.8 K/CMM 0.4 K/CMM K/CMM] (02/15/17 4:19 AM) (02/14/17 6:00 AM) (02/12/17 4:19 AM) Eosinophils # [0.0-0.5 0.1 K/CMM 0.1 K/CMM 0.1 K/CMM K/CMM] (02/14/17 6:00 AM) (02/12/17 4:19 AM) (02/11/17 1:45 PM) Basophils # [0.0-0.2 0.1 K/CMM 0.1 K/CMM K/CMM] (02/14/17 6:00 AM) (02/11/17 1:45 PM) NRBC 7 /100WB *NA* (02/15/17 4:19 AM) Anisocyte [None Seen] 1+ 1+ 1+ *ABN* *ABN* *ABN* (02/15/17 4:19 AM) (02/14/17 6:00 AM) (02/11/17 1:45 PM) Polychrom [None Seen] Moderate *ABN* (02/15/17 4:19 AM) Hypochrom [None Seen] 1+ (02/15/17 4:19 AM) Macrocyte [None Seen] 2+ 3+ 3+ *ABN* *NA* *NA* (02/15/17 4:19 AM) (02/14/17 6:00 AM) (02/12/17 4:19 AM) Microcyte [None Seen] 1+ *ABN* (02/15/17 4:19 AM) Baso Stipplin [None Seen] Moderate *ABN* (02/15/17 4:19 AM) PB Smear Path Macrocytic Anemia. No Schistocytes or Spherocytes seen. No Blasts seen. Ted Mcdonald M.D. *NA* (02/11/17 1:45 PM) Plt Morph Normal Normal Normal (02/15/17 4:19 AM) (02/14/17 6:00 AM) (02/11/17 1:45 PM) Retic Auto [0.5-1.5 %] 4.2 % *HI* (02/11/17 7:03 PM) PT [12.0-14.7 seconds] 13.1 seconds 13.6 seconds (02/15/17 4:19 AM) (02/11/17 3:31 PM) INR [0.85-1.17] 0.97 1.02 (02/15/17 4:19 AM) (02/11/17 3:31 PM) PTT [22.9-35.8 seconds] 29.2 seconds (02/11/17 3:31 PM) 1Result Comment: Critical Result(s) called to JANETT CHRISTIE at 02/15/2017 05:31 by CA. Read back OK.MOLECULAR DIAGNOSTIC Most recent to oldest [Reference Range]: 1 2 3 C difficile DNA [Negative] Negative (02/14/17 2:22 PM) Immunizations No data available for this [...] 1pt drinks 1 liter of vodka every2 [id number] half a pack Assessment and Plan Extracted from: Title: Discharge Summary * Author: Delvis Lara MD Date: 02/15/17 Discharge Plan Discharge Summary Plan Discharge Status: stable. Discharge instructions given: to patient. Discharge disposition: discharge to home. Prescriptions: continue same medications. Education and Follow-up Counseled: patient. Extracted from: Title: Hospitalist Progress Note * Author: Alan Sage MD Date: Impression and Plan Acute Alcoholic Hepatitis: no [...]
--- OUTSIDE RECORDS SUMMARY | 2019-02-18 22:29 | XMS REPORT | Summary of Care ---
:1975 Author Organization [facility] Address [address] [address] [place], [place] [address]- Encounter HQ Sarahr_migdalia(STEVE) [id number] Date(s): 04/26/16 - 04/30/16 [facility] [address] [place] [address]- Final: Alcohol abuse, uncomplicated Discharge Disposition: Home or Self Care Attending Physician: Neil Madsen MD Admitting Physician: Neil Madsen MD Vital Signs Most recent to oldest [Reference 1 2 3 Range]: Height 152.4 cm (04/26/16 11:15 AM) Temperature Oral [96.4-99.1 98.6 DegF 98.1 DegF 97.5 DegF DegF] (04/30/16 6:30 AM) (04/30/16 12:00 AM) (04/29/16 8:17 PM) Blood Pressure [90-140/60-90 109/75 mmHg 113/76 mmHg 121/84 mmHg mmHg] (04/30/16 6:30 AM) (04/30/16 12:00 AM) (04/29/16 8:17 PM) Respiratory Rate [14-20 BRMIN] 16 BRMIN 18 BRMIN 18 BRMIN (04/30/16 6:30 AM) (04/30/16 12:00 AM) (04/29/16 8:17 PM) Peripheral Pulse Rate [60-100 64 bpm 64 bpm 66 bpm bpm] (04/30/16 6:30 AM) (04/30/16 12:00 AM) (04/29/16 8:17 PM) Weight 50 kg (04/26/16 11:15 AM) Body Mass Index 21.53 m2 (04/26/16 11:15 AM) Problem List Condition Effective Dates Status Health Status Informant Alcohol abuse(Confirmed) Active HTN (hypertension)(Confirmed) Active Anxiety and depression(Confirmed) Active Allergies, Adverse Reactions, Alerts Substance Reaction Severity Status Demerol HCl Moderate Active Medications amLODIPine 10 mg, 2 tab, Route: PO, Drug form: TAB, Daily, kg, Start date: 04/26/16 10:30: 00 CDT, Duration: 30 day, Stop date: 05/26/16 9:00:00 CDT Notes: (Same as: Norvasc) Start Date: 04/26/16 Stop Date: 04/30/16 Status: DiscontinuedamLODIPine 10 mg, PO, Daily, 0 Refill(s) Start Date: 04/26/16 Status: OrderedAtivan 1 mg, 0.5 mL, Route: IVP, Drug form: INJ, ONCE, kg, PRN Anxiety, Start date: 01/04 10:14:00 CDT Notes: (Same as: Ativan) Start Date: 04/26/16 Stop Date: 04/26/16 Status: CompletedAtivan 0.5 mg, 1 tab, Route: PO, Drug form: TAB, ONCE, Dosing Weight 50, kg, PRN Anxiety, Start date: 04/26/16 20:24:00 CDT Notes: (Same as: Ativan) Start Date: 04/26/16 Stop Date: 04/26/16 Status: CompletedbusPIRone 7.5 mg, 1.5 tab, Route: PO, Drug form: TAB, BID, kg, Start date: 04/26/16 10:30: 00 CDT, Duration: 30day, Stop date: 05/26/16 9:00:00 CDT Notes: (Same As: BuSpar) Start Date: 04/26/16 Stop Date: 04/30/16 Status: DiscontinuedbusPIRone 7.5 mg oral tablet 7.5 mg=1 tab, PO, BID, 0 Refill(s) Start Date: 04/26/16 Status: Orderedcalcium gluconate 2,000 mg, 100 mL, Route: IVPB, Drug form: INJ, ONCE, Dosing Weight 50, kg, Priority: STAT, Start date: 04/28/16 5:47:00 CDT, Stop date: 04/28/16 5:47:00 CDT Notes: WASTE: F/P - Sink; E - Municipal Trash Bin Start Date: 04/28/16 Stop Date: 04/28/16 Status: Completedcalcium gluconate 2 gm, 100 mL, Route: IVPB, Drug form: INJ, PRN, Dosing Weight 50, kg, PRN Abnormal Lab Result, For NON-ICU Patients Only., Start date: 04/27/16 12:21:00 CDT, Duration: 30 day, Stop date: 05/27/16 12:20:00 CDT Notes: WASTE: F/P - Sink; E - Municipal Trash Bin Start Date: 04/27/16 Stop Date: 04/30/16 Status: Discontinuedcalcium gluconate + sodium chloride 0.9% INJ 150 mL 3 gm, 30 mL, Route: IVPB, PRN, Dosing Weight 50, kg, PRN Abnormal Lab Result, For NON-ICU Patients Only., Start date: 04/27/16 12:21:00 CDT, Duration: 30 day , Stop date: 05/27/16 12:20:00 CDT Notes: WASTE: F/P - Sink; E - Municipal Trash Bin Start Date: 04/27/16 Stop Date: 04/30/16 Status: DiscontinuedchlordiazePOXIDE 25 mg oral capsule (Librium) 25 mg, 1 cap, Route: PO, Drug form: CAP, Q6H, kg, Alcohol Withdrawal, Start date : 04/26/16 12:00:00 CDT, Duration: 30 day, Stop date: 05/26/16 6:00:00 CDT Start Date: 04/26/16 Stop Date: 04/30/16 Status: [id number] 1,000 mL + thiamine IV 100 mg + folic acid IV 1 mg 1,000 mL, Rate: 100 ml/hr, Infuse over: 10 hr, Route: IV, Total Volume: 1,001.2 , Start date: 04/26/16 10:12:00 CDT, Duration: 30 day, Stop date: 05/26/16 10:11 :00 CDT Start Date: 04/26/16 Stop Date: 04/29/16 Status: Discontinuedmagnesium oxide 800 mg, 2 tab, Route: PO, Drug form: TAB, PRN, Dosing Weight 50, kg, PRN Abnormal Lab Result, For NON-ICU Patients Only., Start date: 04/27/16 12:21:00 CDT, Duration: 30 day, Stop date: 05/27/16 12:20:00 CDT Notes: (Same as: Mag-Ox 400)Magnesium oxide [id number] elemental magnesiumDose= 800mg magnesium oxide (484mg elemental magnesium) Start Date: 04/27/16 Stop Date: 04/30/16 Status: Discontinuedmagnesium sulfate 1 gm, 100 mL, Route: IVPB, Drug form: INJ, Q1H, Start date: 04/26/16 15:00:00 CDT, Duration: 3 dosesor times, Stop date: 04/26/16 17:00:00 CDT Notes: WASTE: F/P - Sink; E - Municipal Trash Bin Start Date: 04/26/16 Stop Date: 04/26/16 Status: Completedmagnesium sulfate 2 gm, 50 mL, Route: IVPB, Drug form: INJ, PRN, Dosing Weight 50, kg, PRN Abnormal Lab Result, For NON-ICU Patients Only., Start date: 04/27/16 12:21:00 CDT, Duration: 30 day, Stop date: 05/27/16 12:20:00 CDT Notes: WASTE: F/P - Sink; E - Municipal Trash Bin Start Date: 04/27/16 Stop Date: 04/30/16 Status: Discontinuedmagnesium sulfate 1 gm, 100 mL, Route: IVPB, Drug form: INJ, PRN, Dosing Weight 50, kg, PRN Abnormal Lab Result, For NON-ICU Patients Only., Start date: 04/27/16 12:21:00 CDT, Duration: 30 day, Stop date: 05/27/16 12:20:00 CDT Notes: WASTE: F/P - Sink; E - Municipal Trash Bin Start Date: 04/27/16 Stop Date: 04/30/16 Status: Discontinuedmagnesium sulfate 3gm / NS 50ml (premixed) 3 gm, Route: IVPB, Drug form: INJ, ONCE, Dosing Weight 50, kg, Start date: 04/26 14:15:00 CDT, Stop date: 04/26/16 14:15:00 CDT Start Date: 04/26/16 Stop Date: 04/26/16 Status: Deletednicotine 21 mg, 1 patch, Route: TOP, Drug form: ERFILM, Daily, Dosing Weight 50, kg, Start date: 04/26/16 15:00:00 CDT, Duration: 30 day, Stop date: 05/26/16 9:00: 00 CDT Notes: (Same as: Habitrol)"Remove old patch before application of new patch "WASTE: F/P - P Waste Black; E - P Waste Black Start Date: 04/26/16 Stop Date: 04/30/16 Status: Discontinuedondansetron 8 mg oral tablet 8 mg=1 tab, PO, BID, 0 Refill(s) Start Date: 04/26/16 Status: Orderedpotassium chloride 10 mEq, PO, Daily, 0 Refill(s) Start Date: 04/26/16 Status: Orderedpotassium chloride 40 mEq, 2 tab, Route: PO, Drug form: ERTAB, ONCE, Dosing Weight 50, kg, Priority : NOW, Start date: 04/30/16 12:20:00 CDT, Stop date: 04/30/16 12:20:00 CDT Notes: (Same as: K-Dur 20)"Do Not Crush" With food and full glass of water Start Date: 04/30/16 Stop Date: 04/30/16 Status: Completedpotassium chloride 20 mEq, 1 tab, Route: PO, Drug form: ERTAB, ONCE, Dosing Weight 50, kg, Start date: 04/28/16 23:58:00 CDT, Stop date: 04/28/16 23:58:00 CDT Notes: (Same as: K-Dur 20)"Do Not Crush" With food and full glass of water Start Date: 04/28/16 Stop Date: 04/29/16 Status: Completedpotassium chloride 10 mEq, 100 mL, Route: IVPB, Drug form: INJ, Q1H, Dosing Weight 50, kg, Total Dose=60 meq, Start date: 04/28/16 6:00:00 CDT, Duration: 6 doses or times, Stop date: 04/28/16 11:00:00 CDT, Peripheral Line Notes: Infuse at a rate of 10 mEq/hr.(Same as: KCL) Start Date: 04/28/16 Stop Date: 04/28/16 Status: Completedpotassium chloride 20 mEq, Route: IVPB, ONCE, Dosing Weight 50, kg, Start date: 04/26/16 14:11:00 CDT, Stop date: 04/26/16 14:11:00 CDT Start Date: 04/26/16 Stop Date: 04/26/16 Status: Deletedpotassium chloride 10 mEq, 100 mL, Route: IVPB, Drug form: INJ, Q1H, kg, Total Dose=20 meq, Start date: 04/26/16 11:00:00 CDT, Duration: 2 doses or times, Stop date: 04/26/16 12: 00:00 CDT, Peripheral Line Notes: Infuse at a rate of 10 mEq/hr.(Same as: KCL) Start Date: 04/26/16 Stop Date: 04/26/16 Status: Completedpotassium chloride 10 mEq, 100 mL, Route: IVPB, Drug form: INJ, Q1H, Dosing Weight 50, kg, Total Dose=40 meq, Start date: 04/27/16 7:00:00 CDT, Duration: 4 doses or times, Stop date: 04/27/16 10:00:00 CDT, Peripheral Line Notes: Infuse at a rate of 10 mEq/hr.(Same as: KCL) Start Date: 04/27/16 Stop Date: 04/27/16 Status: Completedpotassium chloride 10 mEq, 100 mL, Route: IVPB, Drug form: INJ, Q1H, Start date: 04/26/16 15:00:00 CDT, Duration: 2 doses or times, Stop date: 04/26/16 16:00:00 CDT Notes: Infuse at a rate of 10 mEq/hr.(Same as: KCL) Start Date: 04/26/16 Stop Date: 04/26/16 Status: Completedpotassium chloride 20 mEq, 1 tab, Route: PO, Drug form: ERTAB, PRN, Dosing Weight 50, kg, PRN Abnormal Lab Result, For NON-ICU Patients Only, Start date: 04/27/16 12:21:00 CDT, Duration: 30 day, Stop date: 05/27/16 12:20:00 CDT Notes: (Same as: K-Dur 20)"Do Not Crush" With food and full glass of water Start Date: 04/27/16 Stop Date: 04/30/16 Status: Discontinuedpotassium chloride 10 mEq, 100 mL, Route: IVPB, Drug form: INJ, PRN, Dosing Weight 50, kg, PRN Abnormal Lab Result, ForNON-ICU Patients Only, Start date: 04/27/16 12:21:00 CDT , Duration: 30 day, Stop date: 05/27/16 12:20:00 CDT Notes: Infuse at a rate of 10 mEq/hr.(Same as: KCL) Start Date: 04/27/16 Stop Date: 04/30/16 Status: Discontinuedpotassium chloride 20 mEq, 15 mL, Route: NJ, Drug form: LIQ, PRN, Dosing Weight 50, kg, PRN Abnormal Lab Result, For NON-ICU Patients Only, Start date: 04/27/16 12:21:00 CDT, Duration: 30 day, Stop date: 05/27/16 12:20:00 CDT Notes: (Same as: Potassium Chloride) Start Date: 04/27/16 Stop Date: 04/30/16 Status: Discontinuedpotassium phosphate + sodium chloride 0.9% INJ 250 mL 30 mmol, 10 mL, Route: IVPB, ONCE, Dosing Weight 50, kg, Start date: 04/26/16 14 :14:00 CDT, Stop date: 04/26/16 14:14:00 CDT Notes: (Same as: K Phosphate.) 1 mMol phoshate has 1.47 mEq potassium Infuse over 4 hours Start Date: 04/26/16 Stop Date: 04/26/16 Status: Completedpotassium phosphate + sodium chloride 0.9% INJ 250 mL 14 mmol, 4.67 mL, Route: IVPB, ONCE, Dosing Weight 50, kg, Start date: 04/27/16 6:33:00 CDT, Stop date: 04/27/16 6:33:00 CDT Notes: (Same as: K Phosphate.) 1 mMol phoshate has 1.47 mEq potassium Infuse over 4 hours Start Date: 04/27/16 Stop Date: 04/27/16 Status: Completedpotassium phosphate + sodium chloride 0.9% INJ 250 mL 15 mmol, 5 mL, Route: IVPB, PRN, Dosing Weight 50, kg, PRN Abnormal Lab Result, For NON-ICU PatientsOnly., Start date: 04/27/16 12:21:00 CDT, Duration: 30 day, Stop date: 05/27/16 12:20:00 CDT Notes: (Same as: K Phosphate.) 1 mMol phoshate has 1.47 mEq potassium Infuse over 4 hours Start Date: 04/27/16 Stop Date: 04/30/16 Status: Discontinuedpotassium phosphate + sodium chloride 0.9% INJ 250 mL 30 mmol, 10 mL, Route: IVPB, PRN, Dosing Weight 50, kg, PRN Abnormal Lab Result , For NON-ICU Patients Only., Start date: 04/27/16 12:21:00 CDT, Duration: 30 day, Stop date: 05/27/16 12:20:00 CDT Notes: (Same as: K Phosphate.) 1 mMol phoshate has 1.47 mEq potassium Infuse over 4 hours Start Date: 04/27/16 Stop Date: 04/30/16 Status: Discontinuedpotassium phosphate-sodium phosphate 250 mg-278 mg-164 mg oral powder 2 pkt, Route: PO, Drug Form: PDR/REC, Dosing Weight 50, kg, PRN, PRN Abnormal Lab Result, For NON-ICU Patients Only, Start date: 04/27/16 12:21:00 CDT, Duration: 30 day, Stop date: 05/27/16 12:20:00 CDT Notes: (Same as: Neutra-Phos) Each 1.25 gm pkt has 250mg phosphorous. Mix w/ 2.5oz water and stir. Start Date: 04/27/16 Stop Date: 04/30/16 Status: Discontinuedsertraline 50 mg, 1 tab, Route: PO, Drug form: TAB, Bedtime, kg, Start date: 04/26/16 21:00 :00 CDT, Duration: 30 day, Stop date: 05/25/16 21:00:00 CDT Notes: (Same as: Zoloft) Start Date: 04/26/16 Stop Date: 04/30/16 Status: Discontinuedsertraline 50 mg oral tablet 50 mg=1 tab, PO, Bedtime, 0 Refill(s) Start Date: 04/26/16 Status: Orderedsodium phosphate + sodium chloride 0.9% INJ 250 mL 15 mmol, 5 mL, Route: IVPB, PRN, Dosing Weight 50, kg, PRN Abnormal Lab Result, For NON-ICU PatientsOnly., Start date: 04/27/16 12:21:00 CDT, Duration: 30 day, Stop date: 05/27/16 12:20:00 CDT Start Date: 04/27/16 Stop Date: 04/30/16 Status: Discontinuedsodium phosphate + sodium chloride 0.9% INJ 250 mL 30 mmol, 10 mL, Route: IVPB, PRN, Dosing Weight 50, kg, PRN Abnormal Lab Result , For NON-ICU Patients Only., Start date: 04/27/16 12:21:00 CDT, Duration: 30 day, Stop date: 05/27/16 12:20:00 CDT Start Date: 04/27/16 Stop Date: 04/30/16 Status: DiscontinuedZofran 4 mg, 2 mL, Route: IVP, Drug form: INJ, Q4H, kg, PRN Nausea, Start date: 10:15:00 CDT, Duration: 30 day, Stop date: 05/26/16 10:14:00 CDT Notes: (Same as: Zofran) MEDICATION WASTE Product Size: 4 mgProduct Wasted: ___ mg Start Date: 04/26/16 Stop Date: 04/30/16 Status: Discontinued Results ELECTROLYTES Most recent to oldest 1 2 3 [Reference Range]: Sodium Lvl [135-145 mEq/L] 141 mEq/L 141 mEq/L 143 mEq/L (04/30/16 5:41 AM) (04/29/16 4:30 AM) (04/28/16 4:45 AM) Potassium Lvl [3.5-5.1 mEq/L] 3.3 mEq/L 3.5 mEq/L 2.9 mEq/L 1 *LOW* (04/29/16 4:30 AM) *CRIT* (04/30/16 5:41 AM) (04/28/16 4:45 AM) Chloride Lvl [95-109 mEq/L] 104 mEq/L 107 mEq/L 110 mEq/L (04/30/16 5:41 AM) (04/29/16 4:30 AM) *HI* (04/28/16 4:45 AM) CO2 [24-32 mEq/L] 30 mEq/L 26 mEq/L 25 mEq/L (04/30/16 5:41 AM) (04/29/16 4:30 AM) (04/28/16 4:45 AM) AGAP [10.0-20.0 mEq/L] 10.3 mEq/L 11.5 mEq/L 10.9 mEq/L (04/30/16 5:41 AM) (04/29/16 4:30 AM) (04/28/16 4:45 AM) 1Result Comment: Critical Result(s) called to Vel Horan at 04/28/2016 05:22 by MCKENNA. Read back OK.CHEM PANEL Most recent to oldest 1 2 3 [Reference Range]: Creatinine Lvl [0.50-1.40 0.74 mg/dL 0.58 mg/dL 0.54 mg/dL mg/dL] (04/30/16 5:41 AM) (04/29/16 4:30 AM) (04/28/16 4:45 AM) eGFR 101 mL/min/1.73m2 1 114 mL/min/1.73m2 2 117 mL/min/1.73m2 3 *NA* *NA* *NA* (04/30/16 5:41 AM) (04/29/16 4:30 AM) (04/28/16 4:45 AM) BUN [7-22 mg/dL] 8 mg/dL 5 mg/dL 2 mg/dL (04/30/16 5:41 AM) *LOW* *LOW* (04/29/16 4:30 AM) (04/28/16 4:45 AM) B/C Ratio [6-25] 4 *LOW* (04/26/16 11:48 AM) Glucose Lvl [70-99 mg/dL] 95 mg/dL 98 mg/dL 233 mg/dL (04/30/16 5:41 AM) (04/29/16 4:30 AM) *HI* (04/28/16 4:45 AM) Total Protein [6.4-8.4 6.7 g/dL g/dL] (04/26/16 11:48 AM) Albumin Lvl [3.5-5.0 g/dL] 3.3 g/dL *LOW* (04/26/16 11:48 AM) Globulin [2.7-4.2 g/dL] 3.4 g/dL (04/26/16 11:48 AM) A/G Ratio [0.7-1.6] 1.0 (04/26/16 11:48 AM) Calcium Lvl [8.5-10.5 8.9 mg/dL 8.2 mg/dL 7.0 mg/dL mg/dL] (04/30/16 5:41 AM) *LOW* *CRIT* (04/29/16 4:30 AM) (04/28/16 4:45 AM) Phosphorus [2.5-4.5 mg/dL] 4.2 mg/dL 3.3 mg/dL 2.0 mg/dL (04/30/16 5:41 AM) (04/29/16 4:30 AM) *LOW* (04/28/16 4:45 AM) Magnesium Lvl [1.8-2.4 2.0 mg/dL 1.7 mg/dL 2.0 mg/dL mg/dL] (04/30/16 5:41 AM) *LOW* (04/28/16 4:45 AM) (04/29/16 4:30 AM) ALT [0-65 unit/L] 96 unit/L *HI* (04/26/16 11:48 AM) AST [0-37 unit/L] 213 unit/L *HI* (04/26/16 11:48 AM) Alk Phos [39-136 unit/L] 123 unit/L (04/26/16 11:48 AM) Bili Total [0.2-1.3 mg/dL] 1.0 mg/dL (04/26/16 11:48 AM) Ammonia [<=45.0 uMol/L] 32.0 uMol/L (04/27/16 5:37 AM) 1Result Comment: The eGFR is calculated [...] eGFR should be multiplied by the estimated BMI.ANEMIA STUDY Most recent to oldest [Reference Range]: 1 2 3 Vitamin B12 Lvl [254-1320 pg/mL] 1820 pg/mL *HI* (04/27/16 5:37 AM) HEMATOLOGY Most recent to oldest 1 2 3 [Reference Range]: WBC [3.7-10.4 K/CMM] 6.2 K/CMM 4.9 K/CMM 4.9 K/CMM (04/30/16 5:41 AM) (04/29/16 4:30 AM) (04/28/16 4:45 AM) RBC [4.20-5.40 M/CMM] 3.92 M/CMM 3.79 M/CMM 3.82 M/CMM *LOW* *LOW* *LOW* (04/30/16 5:41 AM) (04/29/16 4:30 AM) (04/28/16 4:45 AM) Hgb [12.0-16.0 g/dL] 13.3 g/dL 12.9 g/dL 12.9 g/dL (04/30/16 5:41 AM) (04/29/16 4:30 AM) (04/28/16 4:45 AM) Hct [36.0-48.0 %] 40.1 % 37.9 % 38.3 % (04/30/16 5:41 AM) (04/29/16 4:30 AM) (04/28/16 4:45 AM) MCV [80.0-98.0 fL] 102.2 fL 100.1 fL 100.5 fL *HI* *HI* *HI* (04/30/16 5:41 AM) (04/29/16 4:30 AM) (04/28/16 4:45 AM) MCH [27.0-31.0 pg] 33.9 pg 33.9 pg 33.8 pg *HI* *HI* *HI* (04/30/16 5:41 AM) (04/29/16 4:30 AM) (04/28/16 4:45 AM) MCHC [32.0-36.0 g/dL] 33.2 g/dL 33.9 g/dL 33.6 g/dL (04/30/16 5:41 AM) (04/29/16 4:30 AM) (04/28/16 4:45 AM) RDW [11.5-14.5 %] 18.1 % 17.3 % 17.2 % *HI* *HI* *HI* (04/30/16 5:41 AM) (04/29/16 4:30 AM) (04/28/16 4:45 AM) Platelet [133-450 K/CMM] 102 K/CMM 87 K/CMM 87 K/CMM *LOW* *LOW* *LOW* (04/30/16 5:41 AM) (04/29/16 4:30 AM) (04/28/16 4:45 AM) MPV [7.4-10.4 fL] 8.3 fL 9.1 fL 8.3 fL (04/30/16 5:41 AM) (04/29/16 4:30 AM) (04/28/16 4:45 AM) Segs [45.0-75.0 %] 46.5 % 35.5 % 64.2 % (04/29/16 4:30 AM) *LOW* (04/27/16 5:37 AM) (04/28/16 4:45 AM) Lymphocytes [20.0-40.0 %] 39.9 % 48.7 % 26.5 % (04/29/16 4:30 AM) *HI* (04/27/16 5:37 AM) (04/28/16 4:45 AM) Monocytes [2.0-12.0 %] 6.0 % 7.7 % 4.7 % (04/29/16 4:30 AM) (04/28/16 4:45 AM) (04/27/16 5:37 AM) Eosinophils [0.0-4.0 %] 6.5 % 6.9 % 3.9 % *HI* *HI* (04/27/16 5:37 AM) (04/29/16 4:30 AM) (04/28/16 4:45 AM) Basophils [0.0-1.0 %] 1.1 % 1.2 % 0.7 % *HI* *HI* (04/27/16 5:37 AM) (04/29/16 4:30 AM) (04/28/16 4:45 AM) Segs-Bands # [1.5-8.1 K/CMM] 2.3 K/CMM 1.7 K/CMM 4.1 K/CMM (04/29/16 4:30 AM) (04/28/16 4:45 AM) (04/27/16 5:37 AM) Lymphocytes # [1.0-5.5 K/CMM] 1.9 K/CMM 2.4 K/CMM 1.7 K/CMM (04/29/16 4:30 AM) (04/28/16 4:45 AM) (04/27/16 5:37 AM) Monocytes # [0.0-0.8 K/CMM] 0.3 K/CMM 0.4 K/CMM 0.3 K/CMM (04/29/16 4:30 AM) (04/28/16 4:45 AM) (04/27/16 5:37 AM) Eosinophils # [0.0-0.5 K/CMM] 0.3 K/CMM 0.3 K/CMM 0.3 K/CMM (04/29/16 4:30 AM) (04/28/16 4:45 AM) (04/27/16 5:37 AM) Basophils # [0.0-0.2 K/CMM] 0.1 K/CMM 0.1 K/CMM 0.1 K/CMM (04/29/16 4:30 AM) (04/28/16 4:45 AM) (04/26/16 11:48 AM) Macrocyte [None Seen] 1+ 1+ *ABN* *ABN* (04/29/16 4:30 AM) (04/28/16 4:45 AM) Immunizations No data available for this section Procedures No data available for this section Social History Social History Type Response Smoking Status Current every day smoker; Type: Cigarettes; Lives with someone who smokes; Cigarette Smoking Last 365 Days Yes; Reg Smoking Cessation Counseling Yes1 1smokes half a pack Assessment and Plan Extracted from: Title: Neurology Note * Author: Martinez Baron MD Date: 04/29/16 Impression and Plan IMPRESSION: 1. Alcohol withdrawal, resolved. 2. Hypokalemia, resolved. 3. Hypocalcemia, improving 4. Hypomagnesium, improving. 5. History of depression. RECOMMENDATIONS: 1. continue [place] with the same dose. 2. Continue to correct electrolytes. 3. Continue the current management 4. D/c plan per Dr. Madsen Extracted from: Title: Clinical Document Author: Osbaldo Varma MD Date: 04/26/[address] Madsen dictated
--- OUTSIDE RECORDS SUMMARY | 2019-02-18 22:29 | XMS REPORT | Summary of Care ---
:1975 Author Organization [facility] Address [address] [place], [place] [address]- Encounter HQ Donna_migdalia(STEVE) [id number] Date(s): 07/02/16 - 07/02/16 [facility] [address] [place] [address]- Discharge Diagnosis: Acute alcohol abuse Discharge Diagnosis: Hypokalemia Discharge Diagnosis: Vomiting in adult Discharge Disposition: Home or Self Care Attending Physician: Yunior Carvalho MD Vital Signs Most recent to oldest 1 2 3 [Reference Range]: Height 152.4 cm (07/02/16 9:18 AM) Temperature Oral 97.5 DegF 97.8 DegF [96.4-99.1 DegF] (07/02/16 1:15 PM) (07/02/16 9:18 AM) Blood Pressure 109/76 mmHg 110/73 mmHg 111/62 mmHg [90-140/60-90 mmHg] (07/02/16 1:15 PM) (07/02/16 12:19 PM) (07/02/16 11:31 AM) Respiratory Rate [14-20 22 BRMIN 23 BRMIN 23 BRMIN BRMIN] *HI* *HI* *HI* (07/02/16 1:15 PM) (07/02/16 12:19 PM) (07/02/16 11:31 AM) Peripheral Pulse Rate 86 bpm 93 bpm 81 bpm [60-100 bpm] (07/02/16 1:15 PM) (07/02/16 12:19 PM) (07/02/16 11:31 AM) Weight 50.955 kg (07/02/16 9:18 AM) Body Mass Index 21.94 m2 (07/02/16 9:18 AM) Problem List Condition Effective Dates Status Health Status Informant Alcohol abuse(Confirmed) Resolved Drug abuse(Confirmed) Resolved HTN (hypertension)(Confirmed) Active Anxiety and depression(Confirmed) Active Allergies, Adverse Reactions, Alerts Substance Reaction Severity Status Demerol HCl Moderate Active Medications ondansetron 4 mg oral tablet, disintegrating 4 mg=1 tab, PO, TID, PRN Nausea / Vomiting, Dissolve tab under tongue, X 3 day, # 10 tab, 0 Refill(s), Pharmacy: [id number] Start Date: 07/02/16 Stop Date: 07/05/16 Status: Orderedpotassium chloride 60 mEq, 3 tab, Route: PO, Drug form: ERTAB, ONCE, Dosing Weight 50.955, kg, Priority: STAT, Start date: 07/02/16 11:10:00 ANIMAL CARE PROVIDER, Stop date: 07/02/16 11:10:00 ANIMAL CARE PROVIDER Notes: (Same as: K-Dur 20)"Do Not Crush" With food and full glass of water Start Date: 07/02/16 Stop Date: 07/02/16 Status: Completedpotassium chloride 20 mEq oral tablet, extended release 20 mEq=1 tab, PO, BID, # 2 tab, 0 Refill(s), Pharmacy: [id number] Start Date: 07/02/16 Stop Date: 07/03/16 Status: Orderedpromethazine 25 mg rectal suppository 25 mg, MN, Q6H, PRN Nausea / Vomiting, X 3 day, # 9 supp, 0 Refill(s), Pharmacy : [id number] Start Date: 07/02/16 Stop Date: 07/05/16 Status: OrderedSodium Chloride 0.9% (Bolus) IV 1,000 mL, 2,000 ml/hr, Infuse Over: 30 minutes, Route: IV, 1,000, Drug form: INJ , ONCE, Priority: STAT, Dosing Weight 50.955 kg, Start date: 07/02/16 9:54:00 ANIMAL CARE PROVIDER, Duration: 1 doses or times, Stop date:07/02/16 9:54:00 ANIMAL CARE PROVIDER Start Date: 07/02/16 Stop Date: 07/02/16 Status: Completed Results ELECTROLYTES Most recent to oldest [Reference Range]: 1 Sodium Lvl [135-145 mEq/L] 139 mEq/L (07/02/16 10:39 AM) Potassium Lvl [3.5-5.1 mEq/L] 2.6 mEq/L 1 *CRIT* (07/02/16 10:39 AM) Chloride Lvl [95-109 mEq/L] 102 mEq/L (07/02/16 10:39 AM) CO2 [24-32 mEq/L] 28 mEq/L (07/02/16 10:39 AM) AGAP [10.0-20.0 mEq/L] 11.6 mEq/L (07/02/16 10:39 AM) 1Result Comment: Critical Result(s) called to Bailey Wilks RN at 07/02/2016 11:07 by SLMaddy. Read back OK.CHEM PANEL Most recent to oldest [Reference Range]: 1 Creatinine Lvl [0.50-1.40 mg/dL] 0.96 mg/dL (07/02/16 10:39 AM) eGFR 72 mL/min/1.73m2 1 *NA* (07/02/16 10:39 AM) BUN [7-22 mg/dL] 12 mg/dL (07/02/16 10:39 AM) B/C Ratio [6-25] 12 (07/02/16 10:39 AM) Glucose Lvl [70-99 mg/dL] 89 mg/dL (07/02/16 10:39 AM) Total Protein [6.4-8.4 g/dL] 7.1 g/dL (07/02/16 10:39 AM) Albumin Lvl [3.5-5.0 g/dL] 3.7 g/dL (07/02/16 10:39 AM) Globulin [2.7-4.2 g/dL] 3.4 g/dL (07/02/16 10:39 AM) A/G Ratio [0.7-1.6] 1.1 (07/02/16 10:39 AM) Calcium Lvl [8.5-10.5 mg/dL] 8.3 mg/dL *LOW* (07/02/16 10:39 AM) Phosphorus [2.5-4.5 mg/dL] 2.7 mg/dL (07/02/16 10:39 AM) Magnesium Lvl [1.8-2.4 mg/dL] 2.0 mg/dL (07/02/16 10:39 AM) ALT [0-65 unit/L] 41 unit/L (07/02/16 10:39 AM) AST [0-37 unit/L] 41 unit/L *HI* (07/02/16 10:39 AM) Alk Phos [39-136 unit/L] 72 unit/L (07/02/16 10:39 AM) Bili Total [0.2-1.3 mg/dL] 0.3 mg/dL (07/02/16 10:39 AM) Lipase Lvl [73-393 unit/L] 168 unit/L (07/02/16 10:39 AM) 1Result Comment: The eGFR is calculated [...] eGFR should be multiplied by the estimated BMI.TOXICOLOGY Most recent to oldest [Reference Range]: 1 Etoh (%) .332 % *CRIT* (07/02/16 10:39 AM) Ethanol Lvl 332 mg/dL 1 *CRIT* (07/02/16 10:39 AM) 1Result Comment: Critical Result(s) called to Yvette Guthrie RN at 07/02/2016 11: 09 by F. Read back OK.URINE CHEM Most recent to oldest [Reference Range]: 1 U Preg [Negative] Negative (07/02/16 11:01 AM) URINE AND STOOL Most recent to oldest [Reference Range]: 1 UA Turbidity [Clear] Clear (07/02/16 11:01 AM) UA Color STRAW *NA* (07/02/16 11:01 AM) UA pH [5.0-8.0] 7.0 (07/02/16 11:01 AM) UA Spec Grav [<=1.030] <=1.005 *NA* (07/02/16 1101 AM) UA Glucose [Negative] Negative (07/02/16 11:01 AM) UA Blood [Negative] Negative (07/02/16 11:01 AM) UA Ketones [Negative] Negative *NA* (07/02/16 AM) UA Protein [Negative] Negative (07/02/16 AM) UA Urobilinogen [0.1-1.0 EU/dL] 0.2 EU/dL (07/02/16 11:01 AM) UA Bili [Negative] Negative *NA* (07/02/16 AM) UA Leuk Est [Negative] Negative (07/02/16: AM) UA Nitrite [Negative] Negative (07/02/16 11: AM) UA WBC [None Seen /HPF] 0-2 /HPF (07/02/16 11 AM) UA RBC [0-2] None Seen (07/02/16 11:01 AM) UA Bacteria [None Seen /HPF] Occasional /HPF (07/02/16 11: AM) UA Sq Epi [Few /LPF] Occasional /LPF (07/02/16: AM) HEMATOLOGY Most recent to oldest [Reference Range]: 1 WBC [3.7-10.4 K/CMM] 11.7 K/CMM *HI* (07/02/16 10:39 AM) RBC [4.20-5.40 M/CMM] 4.18 M/CMM *LOW* (07/02/16 10:39 AM) Hgb [12.0-16.0 g/dL] 13.8 g/dL (07/02/16 10:39 AM) Hct [36.0-48.0 %] 40.6 % (07/02/16 10:39 AM) MCV [80.0-98.0 fL] 97.2 fL (07/02/16 10:39 AM) MCH [27.0-31.0 pg] 33.1 pg *HI* (07/02/16 10:39 AM) MCHC [32.0-36.0 g/dL] 34.0 g/dL (07/02/16 10:39 AM) RDW [11.5-14.5 %] 14.5 % (07/02/16 10:39 AM) Platelet [133-450 K/CMM] 290 K/CMM (07/02/16 10:39 AM) MPV [7.4-10.4 fL] 6.9 fL *LOW* (07/02/16 10:39 AM) Segs [45.0-75.0 %] 71.9 % (07/02/16 10:39 AM) Lymphocytes [20.0-40.0 %] 21.4 % (07/02/16 10:39 AM) Monocytes [2.0-12.0 %] 3.3 % (07/02/16 10:39 AM) Eosinophils [0.0-4.0 %] 2.3 % (07/02/16 10:39 AM) Basophils [0.0-1.0 %] 1.1 % *HI* (07/02/16 10:39 AM) Segs-Bands # [1.5-8.1 K/CMM] 8.4 K/CMM *HI* (07/02/16 10:39 AM) Lymphocytes # [1.0-5.5 K/CMM] 2.5 K/CMM (07/02/16 10:39 AM) Monocytes # [0.0-0.8 K/CMM] 0.4 K/CMM (07/02/16 10:39 AM) Eosinophils # [0.0-0.5 K/CMM] 0.3 K/CMM (07/02/16 10:39 AM) Basophils # [0.0-0.2 K/CMM] 0.1 K/CMM (07/02/16 10:39 AM) PT [12.0-14.7 seconds] 12.4 seconds (07/02/16 10:39 AM) INR [0.85-1.17] 0.91 (07/02/16 10:39 AM) PTT [22.9-35.8 seconds] 18.7 seconds *LOW* (07/02/16 10:39 AM) Immunizations No data available for this section Procedures Procedure Date Related Diagnosis Body Site Breast augmentation Social History Social History Type Response Smoking Status Current every day smoker; Type: Cigarettes; Ready to change: No ; Concerns about tobacco use in household: No; Lives with someone who smokes; Cigarette Smoking Last 365 Days Yes; Reg Smoking Cessation Counseling Yes1 1smokes half a pack Assessment and Plan No data available for this section
--- OUTSIDE RECORDS SUMMARY | 2019-02-18 22:29 | XMS REPORT | Summary of Care ---
:1975 Author Organization [facility] Address [address] [place], [place] [address]- Encounter HQ Donna_migdalia(FIN) [id number] Date(s): 09/25/18 - 09/25/18 [facility] [address] [place] [address]- Encounter Diagnosis Anxiety (Discharge Diagnosis) - 09/25/18 Diarrhea (Discharge Diagnosis) - 09/25/18 Discharge Disposition: Home or Self Care Attending Physician: Yunior Carvalho MD Vital Signs Most recent to oldest [Reference 1 2 3 Range]: Height 152.4 cm (09/25/18 3:54 AM) Temperature Oral [96.4-99.1 98.4 DegF DegF] (09/25/18 3:54 AM) Blood Pressure [90-140/60-90 147/84 mmHg 153/77 mmHg 143/84 mmHg mmHg] *HI* *HI* *HI* (09/25/18 10:57 AM) (09/25/18 10:12 AM) (09/25/18 9:00 AM) Respiratory Rate [14-20 BRMIN] 17 BRMIN 18 BRMIN 18 BRMIN (09/25/18 10:57 AM) (09/25/18 10:12 AM) (09/25/18 9:00 AM) Peripheral Pulse Rate [60-100 91 bpm 84 bpm 86 bpm bpm] (09/25/18 10:57 AM) (09/25/18 10:12 AM) (09/25/18 9:00 AM) Weight 53.722 kg (09/25/18 3:54 AM) Body Mass Index 23.13 m2 (09/25/18 3:54 AM) Problem List Condition Effective Dates Status [...] HCl Moderate Active Medications Ativan 1 mg, Route: PO, Drug form: TAB, ONCE, Dosing Weight 53.722, kg, Priority: STAT , Start date: 09/25/18 9:44:00 ROLLS BAKER, Stop date: 09/25/18 9:44:00 ROLLS BAKER Start Date: 09/25/18 Stop Date: 09/25/18 Status: CompleteddiphenhydrAMINE 50 mg, Route: PO, Drug form: CAP, ONCE, Dosing Weight 53.722, kg, Priority: STAT , Start date: 09/25/18 4:18:00 ROLLS BAKER, Stop date: 09/25/18 4:18:00 ROLLS BAKER Start Date: 09/25/18 Stop Date: 09/25/18 Status: DiscontinuedhydrOXYzine hydrochloride 25 mg oral tablet 25 mg, 1 tab, Route: PO, Drug form: TAB, ONCE, Dosing Weight 53.722, kg, Start date: 09/25/18 5:40:00 ROLLS BAKER, Stop date: 09/25/18 5:40:00 ROLLS BAKER Notes: (Same as: Atarax) Avoid alcohol. Start Date: 09/25/18 Stop Date: 09/25/18 Status: CompletedhydrOXYzine hydrochloride 25 mg oral tablet 25 mg=1 tab, PO, QID, PRN Anxiety, X 5 day, # 20 tab, 0 Refill(s) Start Date: 09/25/18 Stop Date: 09/30/18 Status: OrderedNS (Bolus) IV 1,000 mL, 1,000 ml/hr, Infuse Over: 1 hr, Route: IV, ONCE, Priority: STAT, Dosing Weight 53.722 kg, Start date: 09/25/18 4:18:00 ROLLS BAKER, Stop date: 09/25/18 4 :18:00 ROLLS BAKER Start Date: 09/25/18 Stop Date: 09/25/18 Status: Completedpotassium chloride 10 mEq, 100 mL, Route: IVPB, Drug form: INJ, Q1H, Dosing Weight 53.722, kg, Total Dose=20 meq, Startdate: 09/25/18 7:00:00 ROLLS BAKER, Duration: 2 doses or times, Stop date: 09/25/18 8:00:00 ROLLS BAKER, Peripheral Line Notes: Infuse at a rate of 10 mEq/hr.(Same as: KCL) Start Date: 09/25/18 Stop Date: 09/25/18 Status: Completedpotassium chloride 40 mEq, Route: PO, Drug form: ERTAB, ONCE, Dosing Weight 53.722, kg, Priority: STAT, Start date: 09/25/18 6:33:00 ROLLS BAKER, Stop date: 09/25/18 6:33:00 ROLLS BAKER Start Date: 09/25/18 Stop Date: 09/25/18 Status: Discontinuedpotassium chloride 60 mEq, Route: PO, ONCE, Dosing Weight 53.722, kg, Start date: 09/25/18 6:36:00 ROLLS BAKER, Stop date: 09/25/18 6:36:00 ROLLS BAKER Start Date: 09/25/18 Stop Date: 09/25/18 Status: Completed Results ELECTROLYTES Most recent to oldest [Reference Range]: 1 Sodium Lvl [135-145 mEq/L] 140 mEq/L (09/25/18 5:31 AM) Potassium Lvl [3.5-5.1 mEq/L] 2.6 mEq/L 1 *CRIT* (09/25/18 5:31 AM) Chloride Lvl [95-109 mEq/L] 103 mEq/L (09/25/18 5:31 AM) CO2 [24-32 mEq/L] 27 mEq/L (09/25/18 5:31 AM) AGAP [10.0-20.0 mEq/L] 12.6 mEq/L (09/25/18 5:31 AM) 1Result Comment: Critical Result(s) called to Andra Mascorro RN at 09/25/2018 06:32 by TAYO. Read back OK.CHEM PANEL Most recent to oldest [Reference Range]: 1 Creatinine Lvl [0.50-1.40 mg/dL] 1.26 mg/dL (09/25/18 5:31 AM) eGFR 52 mL/min/1.73m2 1 *NA* (09/25/18 5:31 AM) BUN [7-22 mg/dL] 19 mg/dL (09/25/18 5:31 AM) Glucose Lvl [70-99 mg/dL] 84 mg/dL (09/25/18 5:31 AM) Calcium Lvl [8.5-10.5 mg/dL] 8.6 mg/dL (09/25/18 5:31 AM) Magnesium Lvl [1.8-2.4 mg/dL] 1.9 mg/dL (09/25/18 5:31 AM) 1Result Comment: The eGFR is calculated [...] Range]: 1 S Preg [Negative] Negative *NA* (09/25/18 5:31 AM) HEMATOLOGY Most recent to oldest [Reference Range]: 1 WBC [3.7-10.4 K/CMM] 11.1 K/CMM *HI* (09/25/18 4:19 AM) RBC [4.20-5.40 M/CMM] 3.93 M/CMM *LOW* (09/25/18 4:19 AM) Hgb [12.0-16.0 g/dL] 12.5 g/dL (2/4/19 4:19 AM) Hct [36.0-48.0 %] 36.8 % (09/25/18: AM) MCV [80.0-98.0 fL] 93.7 fL (09/25/18: AM) MCH [27.0-31.0 pg] 31.7 pg *HI* (09/25/18 AM) MCHC [32.0-36.0 g/dL] 33.9 g/dL (09/25/18: AM) RDW [11.5-14.5 %] 15.3 % *HI* (09/25/18: AM) MPV [7.4-10.4 fL] 7.9 fL (09/25/18: AM) Platelet [133-450 K/CMM] 295 K/CMM (09/25/18:19 AM) Segs [45.0-75.0 %] 73.1 % (09/25/18:19 AM) Lymphocytes [20.0-40.0 %] 19.6 % *LOW* (09/25/18:19 AM) Monocytes [2.0-12.0 %] 3.0 % (09/25/18:19 AM) Eosinophils [0.0-4.0 %] 3.4 % (09/25/18:19 AM) Basophils [0.0-1.0 %] 0.9 % (09/25/18:19 AM) Neutrophils # [1.5-8.1 K/CMM] 8.1 K/CMM (09/25/18:19 AM) Lymphocytes # [1.0-5.5 K/CMM] 2.2 K/CMM (09/25/18 4:19 AM) Monocytes # [0.0-0.8 K/CMM] 0.3 K/CMM (09/25/18 4:19 AM) Eosinophils # [0.0-0.5 K/CMM] 0.4 K/CMM (09/25/18 4:19 AM) Basophils # [0.0-0.2 K/CMM] 0.1 K/CMM (09/25/18 4:19 AM) Immunizations No data available for this [...] Reg Smoking Cessation Counseling Yes3 entered on: 09/25/18 1no IV drug use in 14 yrs2pt drinks 1 liter of vodka every2 [id number] half a pack Assessment and Plan No data available for this section
--- OUTSIDE RECORDS SUMMARY | 2019-02-18 22:29 | XMS REPORT | Summary of Care ---
:1975 Author Organization [facility] Address [address] [place], [place] [address]- Encounter HQ Donna_migdalia(STEVE) [id number] Date(s): 07/16/16 - 07/17/16 [facility] [address] [place] [address]- Discharge Diagnosis: Mood disorder Discharge Diagnosis: Substance abuse Discharge Disposition: Home or Self Care Attending Physician: Cedric Rodriguez DO Vital Signs Most recent to oldest 1 2 3 [Reference Range]: Height 152.4 cm (07/16/16 12:16 PM) Temperature Oral 97.7 DegF 97.9 DegF 97.8 DegF [96.4-99.1 DegF] (07/17/16 12:27 AM) (07/16/16 7:35 PM) (07/16/16 12:16 PM) Blood Pressure 121/85 mmHg 125/88 mmHg 132/91 mmHg [90-140/60-90 mmHg] (07/17/16 12:27 AM) (07/16/16 7:35 PM) (07/16/16 12:16 PM) Respiratory Rate [14-20 16 BRMIN 18 BRMIN 20 BRMIN BRMIN] (07/17/16 12:27 AM) (07/16/16 7:35 PM) (07/16/16 12:16 PM) Peripheral Pulse Rate 75 bpm 81 bpm 90 bpm [60-100 bpm] (07/17/16 12:27 AM) (07/16/16 7:35 PM) (07/16/16 12:16 PM) Weight 51.364 kg (07/16/16 12:16 PM) Body Mass Index 22.12 m2 (07/16/16 12:16 PM) Problem List Condition Effective Dates Status Health Status Informant Alcohol abuse(Confirmed) Resolved Bulimia(Confirmed) Resolved Drug abuse(Confirmed) Resolved HTN (hypertension)(Confirmed) Active Anorexia(Confirmed) Resolved Anxiety and depression(Confirmed) Active Allergies, Adverse Reactions, Alerts Substance Reaction Severity Status Demerol HCl Moderate Active Medications Ativan 1 mg oral tablet 1 mg=1 tab, PO, TID, PRN Anxiety, X 3 day, # 9 tab, 0 Refill(s) Start Date: 07/17/16 Stop Date: 07/20/16 Status: OrderedchlordiazePOXIDE 25 mg oral capsule (Librium) 50 mg, Route: PO, Drug form: CAP, ONCE, Dosing Weight 51.364, kg, Alcohol Withdrawal, Start date: 07/16/16 13:19:00 TELECOMMUNICATIONS OFFICER, Stop date: 07/16/16 13:19:00 TELECOMMUNICATIONS OFFICER Start Date: 07/16/16 Stop Date: 07/16/16 Status: CompletedchlordiazePOXIDE 25 mg oral capsule (Librium) 25 mg=1 cap, PO, QID, PRN Alcohol Withdrawal, X 3 day, # 12 cap, 0 Refill(s) Start Date: 07/16/16 Stop Date: 07/19/16 Status: Orderednicotine 14 mg, 1 patch, Route: TOP, Drug form: ERFILM, Daily, Dosing Weight 51.364, kg, Start date: 07/16/1616:00:00 TELECOMMUNICATIONS OFFICER, Duration: 30 day, Stop date: 08/15/16 9:00:00 TELECOMMUNICATIONS OFFICER Notes: (Same as: Habitrol)"Remove old patch before application of new patch "WASTE: F/P - P Waste Black; E - P Waste Black Start Date: 07/16/16 Stop Date: 07/17/16 Status: Discontinued Results ELECTROLYTES Most recent to oldest [Reference Range]: 1 2 Sodium Lvl [135-145 mEq/L] 141 mEq/L (07/16/16 1:22 PM) Potassium Lvl [3.5-5.1 mEq/L] 4.0 mEq/L (07/16/16 1:22 PM) Chloride Lvl [95-109 mEq/L] 108 mEq/L (07/16/16 1:22 PM) CO2 [24-32 mEq/L] 25 mEq/L (07/16/16 1:22 PM) AGAP [10.0-20.0 mEq/L] 12.0 mEq/L (07/16/16 1:22 PM) CHEM PANEL Most recent to oldest [Reference Range]: 1 2 Creatinine Lvl [0.50-1.40 mg/dL] 0.91 mg/dL (07/16/16 1:22 PM) eGFR 78 mL/min/1.73m2 1 *NA* (07/16/16 1:22 PM) BUN [7-22 mg/dL] 19 mg/dL (07/16/16 1:22 PM) B/C Ratio [6-25] 21 (07/16/16 1:22 PM) Glucose Lvl [70-99 mg/dL] 90 mg/dL (07/16/16 1:22 PM) Total Protein [6.4-8.4 g/dL] 7.4 g/dL (07/16/16 1:22 PM) Albumin Lvl [3.5-5.0 g/dL] 3.7 g/dL (07/16/16 1:22 PM) Globulin [2.7-4.2 g/dL] 3.7 g/dL (07/16/16 1:22 PM) A/G Ratio [0.7-1.6] 1.0 (07/16/16 1:22 PM) Calcium Lvl [8.5-10.5 mg/dL] 7.9 mg/dL *LOW* (07/16/16 1:22 PM) ALT [0-65 unit/L] 59 unit/L (07/16/16 1:22 PM) AST [0-37 unit/L] 93 unit/L *HI* (07/16/16 1:22 PM) Alk Phos [39-136 unit/L] 78 unit/L (07/16/16 1:22 PM) Bili Total [0.2-1.3 mg/dL] 0.4 mg/dL (07/16/16 1:22 PM) 1Result Comment: The eGFR is calculated [...] eGFR should be multiplied by the estimated BMI.DRUG SCREEN Most recent to oldest [Reference Range]: 1 2 U Amph Scr [Negative] Negative *NA* (07/16/16 1:22 PM) U Annel Scr [Negative] Negative *NA* (07/16/16 1:22 PM) U Benzodia Scr [Negative] Negative *NA* (07/16/16 1:22 PM) U Cocaine Scr [Negative] Negative *NA* (07/16/16 1:22 PM) U Opiate Scr [Negative] Negative *NA* (07/16/16 1:22 PM) U Phencyc Scr [Negative] Negative *NA* (07/16/16 1:22 PM) U Cannab Scr [Negative] Negative *NA* (07/16/16 1:22 PM) UDS Note See Note *NA* (07/16/16 1:22 PM) TOXICOLOGY Most recent to oldest [Reference Range]: 1 2 Acetaminoph Lvl [10-20] <2 (07/16/16 1:22 PM) Salicylate Lvl [0.0-30.0 mg/dL] 1.8 mg/dL (07/16/16 1:22 PM) Etoh (%) .231 % .303 % *NA* *CRIT* (07/16/16 4:24 PM) (07/16/16 1:22 PM) Ethanol Lvl 231 mg/dL 303 mg/dL 1 *NA* *CRIT* (07/16/16 4:24 PM) (07/16/16 1:22 PM) 1Result Comment: Critical Result(s) called to Samy Romero at 07/16/2016 13:52 by RUBÉN. Read back OK.HEMATOLOGY Most recent to oldest [Reference Range]: 1 2 WBC [3.7-10.4 K/CMM] 11.5 K/CMM *HI* (07/16/16 1:22 PM) RBC [4.20-5.40 M/CMM] 4.61 M/CMM (07/16/16 1:22 PM) Hgb [12.0-16.0 g/dL] 15.5 g/dL (07/16/16 1:22 PM) Hct [36.0-48.0 %] 45.5 % (07/16/16 1:22 PM) MCV [80.0-98.0 fL] 98.7 fL *HI* (07/16/16 1:22 PM) MCH [27.0-31.0 pg] 33.6 pg *HI* (07/16/16 1:22 PM) MCHC [32.0-36.0 g/dL] 34.0 g/dL (07/16/16 1:22 PM) RDW [11.5-14.5 %] 15.3 % *HI* (07/16/16 1:22 PM) Platelet [133-450 K/CMM] 297 K/CMM (07/16/16 1:22 PM) MPV [7.4-10.4 fL] 7.1 fL *LOW* (07/16/16 1:22 PM) Segs [45.0-75.0 %] 55.3 % (07/16/16 1:22 PM) Lymphocytes [20.0-40.0 %] 35.1 % (07/16/16 1:22 PM) Monocytes [2.0-12.0 %] 5.2 % (07/16/16 1:22 PM) Eosinophils [0.0-4.0 %] 3.3 % (07/16/16 1:22 PM) Basophils [0.0-1.0 %] 1.1 % *HI* (07/16/16 1:22 PM) Segs-Bands # [1.5-8.1 K/CMM] 6.4 K/CMM (07/16/16 1:22 PM) Lymphocytes # [1.0-5.5 K/CMM] 4.0 K/CMM (07/16/16 1:22 PM) Monocytes # [0.0-0.8 K/CMM] 0.6 K/CMM (07/16/16 1:22 PM) Eosinophils # [0.0-0.5 K/CMM] 0.4 K/CMM (07/16/16 1:22 PM) Basophils # [0.0-0.2 K/CMM] 0.1 K/CMM (07/16/16 1:22 PM) PT [12.0-14.7 seconds] 13.4 seconds (07/16/16 1:22 PM) INR [0.85-1.17] 1.00 (07/16/16 1:22 PM) PTT [22.9-35.8 seconds] 27.4 seconds (07/16/16 1:22 PM) Immunizations No data available for this [...]
--- OUTSIDE RECORDS SUMMARY | 2019-02-18 22:30 | XMS REPORT ---
:1975 Author Organization [facility] Address [address] [place] [address] Dr. Alfredo [address] [place] [id number] Care Team Providers Name Role Phone Unavailable Unavailable Unavailable Problems This patient has no known problems. Allergies, Adverse Reactions, Alerts This patient has no known allergies or adverse reactions. Medications This patient has no known medications. Encounters Start End Encounter Admission Attending Care Care Encounter Date/Time Date/Time Type Type Clinicians Facility Department ID 2018-12-15 2018-12-15 Emergency E [facility] [id number] 13:50:00 13:50:00
[2019-02-18 23:50] LABS: Absolute Lymphocytes (CBC) 2.4 K/uL (0.7-4.9); Basophils % 1.3 % (0-1.3); Eosinophils % 7.3 % (0-4.4); Hematocrit 30.4 % (36.0-45.0); MPV 7.4 fL (7.6-11.3); Monocytes % 6.2 % (3.3-12.3)
[2019-02-19 00:11] LABS: BUN Blood Urea Nitrogen 11 mg/dL (7-18); Bicarbonate 27 mmol/L (21-32); Glucose Level 107 mg/dL (74-106); Potassium 3.2 mmol/L (3.5-5.1); Sodium Level 145 mmol/L (136-145); Troponin (Emerg Dept Use Only) < 0.02 ng/mL (0.0-0.045)
--- NOTE | 2019-02-19 00:41 | ER ---
Nurse's Notes [facility] Name: Laura Hammond Age: 43 yrs Sex: Female : 1975 Arrival Date: 02/18/2019 Time: 22:13 Bed 14 Private MD: Diagnosis: Chest pain, unspecified;Essential (primary) hypertension Presentation: 02/18 22:15 Presenting complaint: EMS states: they were toned out for report of pt having high bb blood pressure and an anxiety attack. Transition of care: patient was received from another setting of care (rehabilitation facility). Onset of symptoms was February 18, 2019. Risk Assessment: Do you want to hurt yourself or someone else? Patient reports no desire to harm self or others. Initial Sepsis Screen: Does the patient meet any 2 criteria? No. Patient's initial sepsis screen is negative. Does the patient have a suspected source of infection? No. Patient's initial sepsis screen is negative. Care prior to arrival: None. 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 - Social history:: Smoking status: Patient uses tobacco products, smokes one-half pack cigarettes per day. - Ebola Screening: : No symptoms or risks identified at this time. Screenin:00 Abuse screen: Denies threats or abuse. Denies injuries from another. Nutritional lp1 screening: No deficits noted. Tuberculosis screening: No symptoms or risk factors identified. Fall Risk None identified. Assessment: 22:20 General: Appears in no apparent distress. Behavior is anxious. Pain: Denies pain. lp1 Neuro: Level of Consciousness is awake, alert, obeys commands, Oriented to person, place, time, situation. Cardiovascular: Patient's skin is warm and dry. Respiratory: Respiratory effort is even, unlabored. GI: No signs and/or symptoms were reported involving the gastrointestinal system. : No signs and/or symptoms were reported regarding the genitourinary system. EENT: No signs and/or symptoms were reported regarding the EENT system. Derm: Skin is pink, warm \\T\\ dry. Musculoskeletal: No deficits noted. 22:30 Reassessment: Per patient request, patient's stepmother, Andreina Hammond, notified that [facility] patient is here in ED. 23:15 Reassessment: Unsuccessful attempt at ultrasound guided IV access by SHAHNAZ Alcantar; [facility] Provider notified. 02/19 00:15 Reassessment: Patient appears in no apparent distress at this time. Patient and/or lp1 family updated on plan of care and expected duration. Pain level reassessed. Patient aware of pending lab results. 01:00 Reassessment: Provider at bedside to discuss results with patient. [facility] 01:15 Reassessment: Patient becoming anxious, states "I was here because my blood pressure [facility] was high and I never got anything for my blood pressure"; Provider notified; Verbal order to administer Lisinopril 10mg PO. 01:22 Reassessment: Kyleigh contacted at [phone] for patient to have ride home back to [address] Vital Signs: 02/18 22:17 BP 159 / 109; Pulse 70; Resp 16 S; Temp 98.7(O); Pulse Ox 100% on R/A; Weight 54.43 kg bb (R); Height 5 ft. 0 in. (152.40 cm) (R); Pain 6/10; 22:30 BP 173 / 106; Pulse 80; Resp 14; Pulse Ox 100% on R/A; la1 23:00 BP 141 / 82; Pulse 68; Resp 17; Pulse Ox 100% on R/A; la1 23:20 BP 179 / 93; Pulse 64; Resp 20; Pulse Ox 100% on R/A; la1 23:40 BP 185 / 89; Pulse 62; Resp 20; Pulse Ox 100% on R/A; lp1 02/19 00:15 BP 177 / 89; Pulse 65; Resp 20; Pulse Ox 100% on R/A; lp1 00:41 BP 163 / 89; Pulse 75; Resp 18; Pulse Ox 100% on R/A; Pain 4/10; lp1 02/18 22:17 Body Mass Index 23.44 (54.43 kg, 152.40 cm) bb ED Course: 02/18 22:13 Patient arrived in ED. tl2 22:14 Sherif Box MD is Attending Physician. gs 22:16 Triage completed. bb 22:17 Arm band placed on Patient placed in an exam room, on a stretcher, on pulse oximetry. bb EKG completed in triage. Results shown to MD. 22:20 Patient has correct armband on for positive identification. Placed in gown. Cardiac lp1 monitor on. Pulse ox on. NIBP on. 22:33 Rozina Zee, RN is Primary Nurse. lp1 22:49 Missed attempt(s): 22 gauge in left wrist. lp1 22:53 XRAY Chest (1 view) In Process Unspecified. EDMS 23:26 Missed attempt(s): 20 gauge in right upper arm. Bleeding controlled, band aid applied, bb catheter tip intact. 02/19 01:00 No provider procedures requiring assistance completed. Patient did not have IV access lp1 during this emergency room visit. Administered Medications: 02/18 23:27 CANCELLED (Physician Discretion): Enalaprilat 0.625 mg IV at calculated rate once bb 23:47 Not Given (Patient Refused; Patient states "that doesn't work for me"): hydrOXYzine 50 lp1 mg PO once 02/19 01:19 Drug: Lisinopril 10 mg Route: PO; lp1 01:19 Follow up: Response: Medication administered at discharge. lp1 Outcome: 00:40 Discharge ordered by . 01:24 Discharged to home ambulatory. lp1 01:24 Condition: good 01:24 Discharge instructions given to patient, Instructed on discharge instructions, follow up and referral plans. medication usage, Demonstrated understanding of instructions, follow-up care. 01:24 Patient left the ED. lp1 Signatures: Dispatcher [employer] EDMS Katharine Farah RN RN bb Pena, Laura, RN RN leah1 Lukas Patrick RN RN Alyson Perez RN RN tl2 Sherif Box MD MD gs Corrections: (The following items were deleted from the chart) 02/18 23:42 23:15 Reassessment: Unsuccessful attempt at ultrasound guided peripheral IV, by mariam Alcantar RN; Provider notified [facility] 22:20 General: Appears in no apparent distress. Behavior is anxious, [place] [address] 22:20 Pain: Denies pain. [place] [address] 22:20 Neuro: Level of Consciousness is awake, alert, obeys commands, Oriented to [facility] person, place, time, situation, [facility] 22:20 Cardiovascular: Patient's skin is warm and dry. [place] [address] 22:20 Respiratory: Reports shortness of breath Respiratory effort is even, unlabored, [facility] Respiratory pattern is regular, [facility] 22:20 GI: No signs and/or symptoms were reported involving the gastrointestinal system. [place] [id number] 22:20 : No signs and/or symptoms were reported regarding the genitourinary system. [facility] 43 22:20 EENT: No signs and/or symptoms were reported regarding the EENT system. [place] [address] 22:20 Derm: Skin is pink, warm \\T\\ dry. [place] [address] 43 22:20 Musculoskeletal: Circulation, motion, and sensation intact. [place] [address] :44 23:32 Tuberculosis screening: No symptoms or risk factors identified. [place] [address] 23:32 Abuse screen: Denies threats or abuse. Denies injuries from another. [place] [address] :44 23:32 Nutritional screening: No deficits noted. [place] [address] :44 23:32 Fall Risk None identified. [place] [address] :45 22:15 Patient has correct armband on for positive identification. Placed in gown. [place] [address] 22:15 vehicle monitor technician on. Pulse ox on. NIBP on. [place] [address] 02/19 01:23 00:41 BP 163 / 89; Pulse 75bpm; Resp 18bpm; Pulse Ox 100% RA; [place] [id number]
--- NOTE | 2019-02-19 00:41 | EDPHYS ---
Physician Documentation [facility] Name: Laura Hammond Age: 43 yrs Sex: Female : 1975 Arrival Date: 02/18/2019 Time: 22:13 Bed 14 Private MD: ED Physician Sherif Box HPI: 02/19 00:21 This 43 yrs old Female presents to ER via EMS with complaints of CHEST PAIN. gs 00:21 The patient or guardian reports chest pain that is located primarily in the anterior gs chest wall. Onset: today. The pain does not radiate. Associated signs and symptoms: Pertinent positives: BP ELEVATED , SAYS ANXIETY IS BOTHERING HER, Pertinent negatives: shortness of breath. The chest pain is described as a heaviness. Duration: The patient or guardian reports multiple episodes, that wax and wane, with no pattern. Modifying factors: The symptoms are alleviated by nothing. the symptoms are aggravated by emotionally stressful situations. Severity of pain: At its worst the pain was moderate in the emergency department the pain has resolved. 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 - Social history:: Smoking status: Patient uses tobacco products, smokes one-half pack cigarettes per day. - Ebola Screening: : No symptoms or risks identified at this time. ROS: 02/19 00:21 All other systems are negative. gs Exam: 00:21 Head/Face: Normocephalic, atraumatic. Eyes: Pupils equal round and reactive to light, gs extra-ocular motions intact. Lids and lashes normal. Conjunctiva and sclera are non-icteric and not injected. Cornea within normal limits. Periorbital areas with no swelling, redness, or edema. ENT: Nares patent. No nasal discharge, no septal abnormalities noted. Tympanic membranes are normal and external auditory canals are clear. Oropharynx with no redness, swelling, or masses, exudates, or evidence of obstruction, uvula midline. Mucous membranes moist. Neck: Trachea midline, no thyromegaly or masses palpated, and no cervical lymphadenopathy. Supple, full range of motion without nuchal rigidity, or vertebral point tenderness. No Meningismus. Chest/axilla: Normal chest wall appearance and motion. Nontender with no deformity. No lesions are appreciated. Cardiovascular: Regular rate and rhythm with a normal S1 and S2. No gallops, murmurs, or rubs. Normal PMI, no JVD. No pulse deficits. Respiratory: Lungs have equal breath sounds bilaterally, clear to auscultation and percussion. No rales, rhonchi or wheezes noted. No increased work of breathing, no retractions or nasal flaring. Abdomen/GI: Soft, non-tender, with normal bowel sounds. No distension or tympany. No guarding or rebound. No evidence of tenderness throughout. Back: No spinal tenderness. No costovertebral tenderness. Full range of motion. Skin: Warm, dry with normal turgor. Normal color with no rashes, no lesions, and no evidence of cellulitis. MS/ Extremity: Pulses equal, no cyanosis. Neurovascular intact. Full, normal range of motion. Neuro: Awake and alert, GCS 15, oriented to person, place, time, and situation. Cranial nerves II-XII grossly intact. Motor strength 5/5 in all extremities. Sensory grossly intact. Cerebellar exam normal. Normal gait. 00:21 Constitutional: The patient appears alert, awake. 00:21 ECG was reviewed by the Attending Physician. Vital Signs: 02/18 22:17 BP 159 / 109; Pulse 70; Resp 16 S; Temp 98.7(O); Pulse Ox 100% on R/A; Weight 54.43 kg bb (R); Height 5 ft. 0 in. (152.40 cm) (R); Pain 6/10; 22:30 BP 173 / 106; Pulse 80; Resp 14; Pulse Ox 100% on R/A; la1 23:00 BP 141 / 82; Pulse 68; Resp 17; Pulse Ox 100% on R/A; la1 23:20 BP 179 / 93; Pulse 64; Resp 20; Pulse Ox 100% on R/A; la1 23:40 BP 185 / 89; Pulse 62; Resp 20; Pulse Ox 100% on R/A; lp1 02/19 00:15 BP 177 / 89; Pulse 65; Resp 20; Pulse Ox 100% on R/A; lp1 00:41 BP 163 / 89; Pulse 75; Resp 18; Pulse Ox 100% on R/A; Pain 4/10; lp1 02/18 22:17 Body Mass Index 23.44 (54.43 kg, 152.40 cm) bb MDM: 02/18 22:32 Patient medically screened. 02/19 00:21 Differential diagnosis: acute myocardial infarction, coronary artery disease chest wall gs pain. HEART Score: History: Slightly Suspicious (0), ECG: Non specific repolarization disturbance / LBTB / PM (1), Age: < or = 45 years (0), Risk Factors: 1 or 2 risk factors (1), Troponin: < or = 1 x Normal Limit (0). Data reviewed: vital signs, nurses notes. Data reviewed: lab test result(s), EKG, radiologic studies. Counseling: I had a detailed discussion with the patient and/or guardian regarding: the historical points, exam findings, and any diagnostic results supporting the discharge/admit diagnosis, lab results, radiology results, the need for outpatient follow up. 02/18 22:32 Order name: Basic Metabolic Panel 02/18 22:32 Order name: CBC with Diff; Complete Time: 00:09 02/18 22:32 Order name: Troponin (emerg Dept Use Only) 02/18 22:32 Order name: XRAY Chest (1 view) 02/18 22:32 Order name: Cardiac monitoring; Complete Time: 22:34 02/18 22:32 Order name: EKG - Nurse/Tech; Complete Time: 22:34 02/18 22:32 Order name: O2 Per Protocol; Complete Time: 22:34 02/18 22:32 Order name: O2 Sat Monitoring; Complete Time: 22:34 EC:21 Rate is 67 beats/min. Rhythm is regular. WI interval is normal. QRS interval is normal. gs T waves are Flattened. No ST changes noted. Clinical impression: Abnormal EKG without significant change. Interpreted by me. Administered Medications: 02/18 23:27 CANCELLED (Physician Discretion): Enalaprilat 0.625 mg IV at calculated rate once bb 23:47 Not Given (Patient Refused; Patient states "that doesn't work for me"): hydrOXYzine 50 lp1 mg PO once 02/19 01:19 Drug: Lisinopril 10 mg Route: PO; lp1 01:19 Follow up: Response: Medication administered at discharge. lp1 Disposition: 02/19/19 00:40 Discharged to Home. Impression: Chest pain, unspecified, Essential (primary) hypertension. - Condition is Stable. - Discharge Instructions: Nonspecific Chest Pain, Hypertension, Managing Your Hypertension. - Medication Reconciliation Form, Thank You Letter, Antibiotic Education, Prescription Opioid Use form. - Follow up: Private Physician; When: 2 - 3 days; Reason: Re-evaluation by your physician. - Notes: CAN INCREASE LISINOPRIL TO 20 MG PER DAY Signatures: Dispatcher [employer] EDMS Katharine Farah RN RN bb Rozina Zee RN RN 1 Sherif Box MD MD Corrections: (The following items were deleted from the chart) 02/18 23:27 22:32 IV Saline Lock ordered. [facility] 23: 22:34 Enalaprilat 0.625 mg IV at calculated rate once ordered. [facility] 23:27 23:27 Enalaprilat 0.625 mg IV at calculated rate once ordered. [facility] 02/19 01:24 00:40 02/19/2019 00:40 Discharged to Home. Impression: Chest pain, unspecified; lp1 Essential (primary) hypertension. Condition is Stable. Forms are Medication Reconciliation Form, Thank You Letter, Antibiotic Education, Prescription Opioid Use. Follow up: Private Physician; When: 2 - 3 days; Reason: Re-evaluation by your physician.
[2019-02-19] MEDS ORDERED: LISINOPRIL 10 MG TAB ONE (01:26)
--- NOTE | 2019-02-19 08:26 | RAD REPORT ---
EXAM DESCRIPTION: RAD - Chest Single View - 02/18/2019 10:53 pm CLINICAL HISTORY: Hypertension COMPARISON: None. TECHNIQUE: AP portable chest image was obtained 2250 hours . FINDINGS: Lungs are clear. Heart and vasculature are normal. No measurable pleural effusion and no p neumothorax. No acute bony abnormality seen. No acute aortic findings suspected. IMPRESSION: No acute cardiopulmonary process.
== END 2019-02-19 01:24 | disposition home or self-care (01) ==
LOC: ER 22:10
DX: I10 Essential (primary) hypertension (principal); F41.9 Anxiety disorder, unspecified; F17.210 Nicotine dependence, cigarettes, uncomplicated; Z88.5 Allergy status to narcotic agent
CPT/HCPCS: 36415; 71045; 80048; 84484; 85025; 99284